=== PATIENT | female | born 1960 | race Two or more races ===

== ENCOUNTER 2020-05-21 10:54 | Inpatient (IN) | payer MEDICAID, OTHER ==
[~2020-05-21] VITALS: Ht 162.6 cm; Wt 67.1 kg
--- NOTE | 2020-05-21 11:11 | NUR ---
MD@bedside, medical screening exam in progress
[2020-05-21] MEDS ORDERED: CLON0.1T GT (11:25)
[2020-05-21] MEDS ORDERED: PROHEAL GT (11:25)
[2020-05-21] MEDS ORDERED: FURO-152 GT (11:25)
[2020-05-21] MEDS ORDERED: BISA10SU61 RC (11:25)
[2020-05-21] MEDS ORDERED: FERR325T23 GT (11:25)
[2020-05-21] MEDS ORDERED: OMEP20CA15 GT (11:25)
[2020-05-21] MEDS ORDERED: DOCU100C36 PO (11:25)
[2020-05-21] MEDS ORDERED: ACET-2154 GT ×2 (11:25→11:47)
[2020-05-21] MEDS ORDERED: QUET25TA GT (11:25)
[2020-05-21] MEDS ORDERED: METO50TA16 PO (11:25)
[2020-05-21 11:39] LABS: *OCCULT BLOOD STOOL NEGATIVE (NEGATIVE)
[2020-05-21 11:44] LABS: BASOPHILS # (AUTO) 0.1 K/uL (0.0-8.0); BASOPHILS % (AUTO) 0.5 % (0.0-2.0); EOSINOPHILS # (AUTO) 0.3 K/uL (0.0-0.7); EOSINOPHILS % (AUTO) 2.6 % (0.0-7.0); HEMATOCRIT 29.1 % (31.2-41.9); HEMOGLOBIN 8.9 g/dL (10.9-14.3); LYMPHOCYTES # (AUTO) 1.6 K/uL (20.0-40.0); LYMPHOCYTES % (AUTO) 13.1 % (20.5-51.5); MEAN CORPUSCULAR HEMOGLOBIN 27.3 uug (24.7-32.8); MEAN CORPUSCULAR HGB CONC 31 g/dL (32.3-35.6); MEAN CORPUSCULAR VOLUME 89.6 fL (75.5-95.3); MONOCYTES # (AUTO) 0.6 K/uL (2.0-10.0); NEUTROPHILS # (AUTO) 9.4 K/uL (1.8-8.9); NEUTROPHILS % (AUTO) 78.8 % (38.5-71.5); PLATELET COUNT (AUTO) 404 K/uL (179-408); RED BLOOD CELL COUNT(AUTO) 3.25 MIL/uL (3.63-4.92); WHITE BLOOD COUNT (AUTO) 11.9 K/uL (3.8-11.8)
[2020-05-21] MEDS ORDERED: LORA-259 PO (11:47)
[2020-05-21] MEDS ORDERED: SENN-261 GT (11:47)
[2020-05-21] MEDS ORDERED: HYDR-4384 PO (11:47)
[2020-05-21] MEDS ORDERED: INSU100V7 SQ (11:47)
[2020-05-21] MEDS ORDERED: HUMALOG SQ (11:47)
[2020-05-21] MEDS ORDERED: APIX5TAB PO (11:47)
[2020-05-21] MEDS ORDERED: LACT10SO GT (11:47)
[2020-05-21] MEDS ORDERED: EPOE1000 SQ (11:47)
[2020-05-21] MEDS ORDERED: ASCO500C6 GT (11:47)
[2020-05-21] MEDS ORDERED: SIME80TA15 PO (11:47)
[2020-05-21] MEDS ORDERED: POLY17PO4 GT (11:47)
[2020-05-21] MEDS ORDERED: ONDA-104 GT (11:47)
[2020-05-21] MEDS ORDERED: GABA-532 GT (11:47)
[2020-05-21] MEDS ORDERED: MULT-213 GT (11:47)
[2020-05-21] MEDS ORDERED: LEVO250T59 GT (11:47)
[2020-05-21] MEDS ORDERED: CHOL10002 GT (11:47)
[2020-05-21] MEDS ORDERED: HYDR-894 PO (11:47)
[2020-05-21] MEDS ORDERED: ACET-2154 PO (11:47)
[2020-05-21 11:59] LABS: CREATININE 1.8 mg/dL (0.6-1.3); POTASSIUM 3.7 mmol/L (3.5-5.1)
[2020-05-21 12:05] LABS: BILIRUBIN,DIRECT 0.1 mg/dL (0.0-0.2); BILIRUBIN,TOTAL 0.2 mg/dL (0.2-1.0); TOTAL PROTEIN, SERUM 9.7 g/dL (6.4-8.2)
[2020-05-21 12:12] LABS: MAGNESIUM 2.5 mg/dL (1.8-2.4); PHOSPHOROUS 4.8 mg/dL (2.5-4.9)
[2020-05-21 12:13] LABS: THYROID STIMULATING HORMONE 0.303 mIU/mL (0.358-3.740)
--- NOTE | 2020-05-21 12:21 | NUR ---
Oral care provided. +PRN oral suctioning, thin saliva noted.
[2020-05-21] MEDS ORDERED: IV 1/2NS 1000 ML 1,000 ML IV ONE (12:30)
[2020-05-21 12:46] LABS: *BILIRUBIN,URIN NEGATIVE (NEGATIVE); *BLOOD, URINE 3+ (NEGATIVE); *CLARITY,URINE CLOUDY (CLEAR); *COLOR,URINE YELLOW (YELLOW); *KETONES,URINE NEGATIVE (NEGATIVE); LEUKOCYTE ESTERASE ,URINE 3+ (NEGATIVE); NITRITE, URINE NEGATIVE (NEGATIVE); UGLUCOSE NEGATIVE (NEGATIVE)
[2020-05-21] MEDS ORDERED: CEFEPIME HCL 2 G in IV DEXTROSE 5% 100 ML IV ONE (13:15)
--- NOTE | 2020-05-21 13:26 | NUR ---
Patient is resting comfortably on gurney with eyes closed. Heels off bed. PATIENT IS PAIN FREE AT THIS TIME.
[2020-05-21] MEDS ORDERED: SIMETHICONE 80 MG TAB.CHEW GT PRN (14:15)
[2020-05-21] MEDS ORDERED: SENNOSIDES 1 TABLET GT PRN (14:15)
[2020-05-21] MEDS ORDERED: BISACODYL 10 MG SUPP.RECT RC PRN (14:15)
[2020-05-21] MEDS ORDERED: hydrALAZINE HCL 25 MG TABLET GT PRN (14:15)
[2020-05-21] MEDS ORDERED: ONDANSETRON 4 MG/2 ML VIAL IV PRN (14:30)
[2020-05-21] MEDS ORDERED: DEXTROSE 50% 50 ML DISP.SYRIN IV PRN (14:30)
[2020-05-21] MEDS ORDERED: CEFTRIAXONE 1 G in IV DEXTROSE 5% 50 ML IV SCH (14:30)
[2020-05-21] MEDS ORDERED: CEFTRIAXONE /D5W 50ML IVPB **ER PYXIS IV ONE (14:52)
--- NOTE | 2020-05-21 16:25 | NUR ---
No acute change in condition seen, pending [facility] nurse still. Back rubs given.
[2020-05-21 17:14] LABS: BACTERIA,URINE MODERATE /HPF (NONE SEEN); SQUAMOUS EPITHELIAL CELL,UR FEW /HPF (NONE SEEN); WBC,URINE 20-50 /HPF (0-3); YEAST,URINE BUDDING YEAST /HPF (NONE SEEN)
--- NOTE | 2020-05-21 18:58 | NUR ---
Patient is still for [facility] trasnfer, pending accepting nurse@this time, no change in condition seen, Skin care & prn trach suctioning done.
--- NOTE | 2020-05-21 19:29 | NUR ---
[facility] nurse De accepted patient. Patient is ready to go to [facility] after change of shift, endorsed to ER admission discharge rn Roger accordingly.
--- NOTE | 2020-05-21 20:30 | NUR ---
PT TRANSPORTED VIA [facility] TO RM 308 WITH RT BAGGING PT.
--- NOTE | 2020-05-21 20:31 | NUR ---
Patient received from ER Nurse via [facility]. Safety measures in place. RT at bedside as well. Will monitor and assess.
--- NOTE | 2020-05-21 21:25 | NUR ---
Patient rated 10/10 pain in her feet, grimacing, and unable to lay still. Was asked if she wants pain medication, mouthed the words "yes". PRN Morphine was given Will monitor and assess.
[2020-05-21] MEDS: MORPHINE SULFATE 2 MG/1 ML DISP.SYRIN IV PRN (21:26)
[2020-05-21] MEDS: FLUCONAZOLE 200 MG/NS 100ML IV 100 MG in PREMIXED 1 EACH IV SCH (21:35)
[2020-05-21] MEDS: POTASSIUM CHLORIDE 20 MEQ in IV 1/2NS 1000 ML 1,000 ML IV PRN (21:36)
[2020-05-21] MEDS: DOCUSATE SODIUM 100 MG/10 ML LIQUID UDC GT SCH (21:41)
[2020-05-21] MEDS: APIXABAN 2.5 MG TABLET GT SCH (21:43)
[2020-05-21] MEDS: CLONIDINE HCL 0.1 MG TABLET GT SCH (21:44)
[2020-05-21] MEDS: GABAPENTIN 100 MG CAPSULE GT SCH (21:45)
[2020-05-21] MEDS: QUETIAPINE FUMARATE 25 MG TABLET GT SCH (21:45)
[2020-05-21] MEDS: METOPROLOL TARTRATE 50 MG TABLET GT SCH (21:45)
[2020-05-21] MEDS: INSULIN GLARGINE,HUM 300 UNITS/3 ML CARTRIDGE SQ SCH (22:10)
[2020-05-21] MEDS: BLOOD SUGAR DIAGNOSTIC 1 EACH STRIP VI SCH (22:10)
--- NOTE | 2020-05-21 22:10 | NUR ---
Due to no diet being ordered and patients Blood Sugar results (125) Lantus was held to prevent any Hypoglycemia. Will continue to monitor and assess.
[2020-05-21 22:30] VITALS: BP 126/81
[2020-05-21] MEDS ORDERED: NEOMY/BACITRA/POLYMYXIN B OINT UD PACKET TP ONE (22:33)
[2020-05-21 23:19] VITALS: BP 126/81
--- NOTE | 2020-05-22 | NUR ---
Contacted Respiratory Therapist Jon to connect continuous pulse oximeter to patient. He was able to locate one and connect patient. Patient saturation at 100%, HR 83, BP WNL. Heels kept off bed, patient repositioned Q2H, HOB elevated. Will monitor and assess.
[2020-05-22 00:08] VITALS: BP 145/98
[2020-05-22] MEDS: BLOOD SUGAR DIAGNOSTIC 1 EACH STRIP VI SCH ×5 (00:24→23:35)
--- NOTE | 2020-05-22 03:41 | NUR ---
PT ON CONT LOPEZ VENT, WITH SHILEY # [address] AND SECURED, AND AWAKE, UNDERSTANDS VERBAL COMMANDS ,PT GETTING TIRED LATER IN EVENING, ON CPAP MODE ON VENT PT SLOWS DOWN AT NOC AT TIMES, THEN WAKES UP, WITH CONT PULSE OXY AT BEDSIDE, 100% SAT, SUCTIONED VERY LITTLE , WITH GOOD COUGH EFFORT.D LEROY MALE INFERTILITY SPECIALIST CPAP 12CM 40%, PEEP 5.D LEROY MALE INFERTILITY SPECIALIST Addendum: 05/22/20 at 0346 by BAKARI HARPER RT Amended: Links added.
[2020-05-22 04:00] VITALS: BP 143/82
[2020-05-22] MEDS: ACETAMINOPHEN 325 MG TABLET GT PRN (06:38)
--- NOTE | 2020-05-22 06:53 | NUR ---
Patient handed off to AM nurse. Stable condition. All vitals WNLs. Safety measures in place. Will endorse to AM nurse.
[2020-05-22 08:22] LABS: BASOPHILS % (AUTO) 0.5 % (0.0-2.0); EOSINOPHILS # (AUTO) 0.4 K/uL (0.0-0.7); EOSINOPHILS % (AUTO) 3.9 % (0.0-7.0); HEMATOCRIT 28.1 % (31.2-41.9); HEMOGLOBIN 8.8 g/dL (10.9-14.3); LYMPHOCYTES % (AUTO) 10.3 % (20.5-51.5); MEAN CORPUSCULAR HGB CONC 31 g/dL (32.3-35.6); MEAN CORPUSCULAR VOLUME 89.8 fL (75.5-95.3); MONOCYTES # (AUTO) 0.5 K/uL (2.0-10.0); NEUTROPHILS % (AUTO) 80.3 % (38.5-71.5); PLATELET COUNT (AUTO) 376 K/uL (179-408); RED BLOOD CELL COUNT(AUTO) 3.13 MIL/uL (3.63-4.92)
[2020-05-22 08:29] LABS: BILIRUBIN,TOTAL 0.3 mg/dL (0.2-1.0); CREATININE 1.8 mg/dL (0.6-1.3); MAGNESIUM 2.3 mg/dL (1.8-2.4); PHOSPHOROUS 5.4 mg/dL (2.5-4.9); POTASSIUM 3.6 mmol/L (3.5-5.1); TOTAL PROTEIN, SERUM 8.9 g/dL (6.4-8.2)
[2020-05-22 08:38] LABS: THYROID STIMULATING HORMONE 0.303 mIU/mL (0.358-3.740)
[2020-05-22] MEDS: CHOLECALCIFEROL 1,000 UNIT TABLET GT SCH (09:19)
[2020-05-22] MEDS: MIRALAX 17 GM POWD.PACK GT SCH (09:19)
[2020-05-22] MEDS: PANTOPRAZOLE ORAL SUSPENSION 40 MG SUSPDR.PKT GT SCH (09:19)
[2020-05-22] MEDS: METOPROLOL TARTRATE 50 MG TABLET GT SCH ×2 (09:20→16:39)
[2020-05-22] MEDS: ASCORBIC ACID 500 MG TABLET GT SCH (09:20)
[2020-05-22] MEDS: MULTIVITAMINS,THERAPEUTIC TABLET GT SCH (09:20)
[2020-05-22] MEDS: QUETIAPINE FUMARATE 25 MG TABLET GT SCH ×2 (09:21→16:41)
[2020-05-22] MEDS: APIXABAN 2.5 MG TABLET GT SCH ×2 (09:24→20:47)
[2020-05-22] MEDS: DOCUSATE SODIUM 100 MG/10 ML LIQUID UDC GT SCH ×2 (09:27→16:36)
[2020-05-22] MEDS: CLONIDINE HCL 0.1 MG TABLET GT SCH ×2 (09:35→16:34)
[2020-05-22] MEDS: MORPHINE SULFATE 2 MG/1 ML DISP.SYRIN IV PRN ×2 (09:38→19:54)
--- NOTE | 2020-05-22 11:23 | NUR ---
RN Will will clarify with the physician for the order. She will call the tech.
--- NOTE | 2020-05-22 11:30 | NUR ---
PATIENT HAS GANGRENE TOES, CLARFIY THE ORDER FOR DOPPLER VENEOUS, MD WANTS BOTH DONE. ARTERIAL AND VENEOUS STUDY.
[2020-05-22 12:00] VITALS: BP 122/79
--- NOTE | 2020-05-22 13:38 | NUR ---
DAUGHTER REQUEST TO CHECK IF PATIENT HAS BLOOD ON STOOL, MD NOTIFY WITH ORDER.
--- NOTE | 2020-05-22 13:45 | NUR ---
CALLED [facility] AND VERIFY WHAT FEEDING PATIENT HAS, ITS DIABETA SOURCE AT 80CC. NOTIFY DIETARY WITH SUGGESTIONS OF GLUCERNA SINCE WE DONT CARRY DIABETA SOURCE. MD NOTIFY WITH ORDER OF GLUCERNA 1.2 AT 80CC/HR EQUIVALENT
[2020-05-22] MEDS: PROTEIN SUPPLEMENT (PROSTAT) 30 ML LIQUID GT SCH ×2 (14:08→16:39)
[2020-05-22] MEDS: CEFTRIAXONE 1 G in IV DEXTROSE 5% 50 ML IV SCH (14:17)
[2020-05-22] MEDS: POTASSIUM CHLORIDE 20 MEQ in IV 1/2NS 1000 ML 1,000 ML IV PRN (14:18)
[2020-05-22 16:12] VITALS: BP 109/70
--- NOTE | 2020-05-22 17:42 | NUR ---
POSITIVE FOR MRSA NARES, DR FLOWERS AWARE.
[2020-05-22] MEDS: FLUCONAZOLE 200 MG/NS 100ML IV 100 MG in PREMIXED 1 EACH IV SCH (19:53)
[2020-05-22 20:27] VITALS: BP 86/56
[2020-05-22] MEDS: INSULIN GLARGINE,HUM 300 UNITS/3 ML CARTRIDGE SQ SCH (20:47)
[2020-05-22] MEDS: GABAPENTIN 100 MG CAPSULE GT SCH (20:47)
[2020-05-22] MEDS: GLUCERNA 1.2 1000ML LIQUID GT PRN (21:42)
[2020-05-23 00:45] VITALS: BP 108/65
[2020-05-23] MEDS: MORPHINE SULFATE 2 MG/1 ML DISP.SYRIN IV PRN ×4 (00:50→21:11)
[2020-05-23 05:33] VITALS: BP 119/71
[2020-05-23] MEDS: INSULIN REGULAR, HUMAN 300 UNIT/3 ML VIAL SQ PRN ×3 (05:44→23:36)
[2020-05-23] MEDS: BLOOD SUGAR DIAGNOSTIC 1 EACH STRIP VI SCH ×4 (05:44→23:37)
--- NOTE | 2020-05-23 06:09 | NUR ---
END OF SHIFT REPORT Patient rested well in between care; GTF started and tolerated well; off at 0600H and on in 4 hours; c/o pain multiple times and addressed accordingly; needs attended; repositioned q2h; incontinence care done; safety maintained.
--- NOTE | 2020-05-23 08:00 | NUR ---
Pt alert and oriented. Pt responds appropriately with head gestures of yes or no. Pt non verbal but able to communicate her needs. pt on CPAP and settings are as ordered. Pt on continous pulse o2 sat. O2 sat 98% on fio2 of 40%, PPEP of 5, Pressure support @12. Pt pointed out that she wanted to be suctioned. Suctioned frothy white saliva with moderate 8cc secretions. Pt denies any c/o pain. PT has very poor circulation to UE's and LE's as evident by necrotic tissues on fingers and toes. Skin management implemented. Pt on 1st step KCI bed. heels floated, turn q2hrs implemented, and repositioned for comfort. Gtube off as ordered. PT's meds given g tube audible in stomach no residual noted. IVF running as ordered. Call light is within reach. Addendum: 05/23/20 at 1610 by HOMER DUSTIN MESSINA KCI bed still not delivered but has been ordered.
[2020-05-23] MEDS: PANTOPRAZOLE ORAL SUSPENSION 40 MG SUSPDR.PKT GT SCH (09:09)
[2020-05-23] MEDS: DOCUSATE SODIUM 100 MG/10 ML LIQUID UDC GT SCH ×3 (09:09→17:09)
[2020-05-23] MEDS: CHOLECALCIFEROL 1,000 UNIT TABLET GT SCH (09:09)
[2020-05-23] MEDS: MULTIVITAMINS,THERAPEUTIC TABLET GT SCH (09:09)
[2020-05-23] MEDS: QUETIAPINE FUMARATE 25 MG TABLET GT SCH ×2 (09:09→17:09)
[2020-05-23] MEDS: ASCORBIC ACID 500 MG TABLET GT SCH (09:09)
[2020-05-23] MEDS: METOPROLOL TARTRATE 50 MG TABLET GT SCH ×2 (09:11→17:09)
[2020-05-23] MEDS: APIXABAN 2.5 MG TABLET GT SCH ×2 (09:11→20:03)
[2020-05-23] MEDS: CLONIDINE HCL 0.1 MG TABLET GT SCH ×2 (09:12→17:09)
[2020-05-23] MEDS: MIRALAX 17 GM POWD.PACK GT SCH (09:12)
[2020-05-23] MEDS: PROTEIN SUPPLEMENT (PROSTAT) 30 ML LIQUID GT SCH ×2 (09:13→17:10)
[2020-05-23 10:07] LABS: *OCCULT BLOOD STOOL NEGATIVE (NEGATIVE)
[2020-05-23] MEDS: MUPIROCIN 2% OINT 22 GM TUBE NS SCH ×2 (11:00→20:04)
[2020-05-23] MEDS: POTASSIUM CHLORIDE 20 MEQ in IV 1/2NS 1000 ML 1,000 ML IV PRN ×2 (11:33→23:29)
[2020-05-23 11:46] VITALS: BP 113/71
--- NOTE | 2020-05-23 12:00 | NUR ---
Pt was seen by RT trache care done. Pt was suctioned as well. Pt denies any c/o pain. Gtube started @1000am as ordered to complete 20hrs of feeding. Will endorse to turn off GTube feeding at @6am tomorrow.
[2020-05-23] MEDS: CEFTRIAXONE 1 G in IV DEXTROSE 5% 50 ML IV SCH (14:24)
--- NOTE | 2020-05-23 15:49 | NUR ---
Pt was seen by DR king. No new order received. PT suctioned per pt's request.
[2020-05-23 15:58] VITALS: BP_SYST 117; BP_SYST 144; BP_DIAS 75; BP_DIAS 95
[2020-05-23] MEDS: GLUCERNA 1.2 1000ML LIQUID GT PRN (15:59)
--- NOTE | 2020-05-23 18:53 | NUR ---
Pt suctioned again. PT denies any c/o pain. Call light is within reach.
[2020-05-23] MEDS: GABAPENTIN 100 MG CAPSULE GT SCH (20:03)
[2020-05-23 20:06] VITALS: BP 110/70
[2020-05-23] MEDS: INSULIN GLARGINE,HUM 300 UNITS/3 ML CARTRIDGE SQ SCH (20:07)
[2020-05-23] MEDS: HYDROCODONE/APAP 5-325MG TABLET GT PRN (20:09)
[2020-05-23 21:14] LABS: *BILIRUBIN,URIN 1+ (NEGATIVE); *BLOOD, URINE 3+ (NEGATIVE); *CLARITY,URINE CLOUDY (CLEAR); *COLOR,URINE YELLOW (YELLOW); *KETONES,URINE NEGATIVE (NEGATIVE); *UROBILINOGEN,URINE 0.2 E.U./dl (NORMAL); LEUKOCYTE ESTERASE ,URINE 3+ (NEGATIVE); NITRITE, URINE NEGATIVE (NEGATIVE); UGLUCOSE NEGATIVE (NEGATIVE)
[2020-05-23 21:24] LABS: *CREATININE,URINE 38.3 mg/dL (30-125); *URINE TOTAL PROTEIN RANDOM 139.4 mg/dL (<150/24HR)
[2020-05-23 23:05] LABS: BACTERIA,URINE MANY /HPF (NONE SEEN); SQUAMOUS EPITHELIAL CELL,UR MODERATE /HPF (NONE SEEN); YEAST,URINE MANY /HPF (NONE SEEN)
[2020-05-23 23:06] LABS: MUCUS,URINE FEW /LPF (0-FEW); URINE AMORPHOUS PHOSPHATES MANY /HPF
[2020-05-24 00:18] VITALS: BP 113/77
[2020-05-24] MEDS: MORPHINE SULFATE 2 MG/1 ML DISP.SYRIN IV PRN ×3 (02:34→19:46)
[2020-05-24 04:47] VITALS: BP 117/75
[2020-05-24] MEDS: HYDROCODONE/APAP 5-325MG TABLET GT PRN ×3 (04:50→23:17)
[2020-05-24] MEDS: INSULIN REGULAR, HUMAN 300 UNIT/3 ML VIAL SQ PRN ×4 (05:15→23:21)
[2020-05-24] MEDS: BLOOD SUGAR DIAGNOSTIC 1 EACH STRIP VI SCH ×4 (05:51→23:20)
--- NOTE | 2020-05-24 06:33 | NUR ---
Pt rested well in between care; no acute distress; suctioned secretions orally and via trache; trache care done also by RT; incontinence care done; i/o cath done and specimen sent to lab; urine is very cloudy and pungent; dressing done to palomo heels; and sacrum;
[2020-05-24 07:23] LABS: BASOPHILS # (AUTO) 0.1 K/uL (0.0-8.0); BASOPHILS % (AUTO) 0.9 % (0.0-2.0); EOSINOPHILS # (AUTO) 0.3 K/uL (0.0-0.7); EOSINOPHILS % (AUTO) 3.1 % (0.0-7.0); HEMATOCRIT 25.4 % (31.2-41.9); HEMOGLOBIN 7.9 g/dL (10.9-14.3); LYMPHOCYTES # (AUTO) 1.2 K/uL (20.0-40.0); LYMPHOCYTES % (AUTO) 12.6 % (20.5-51.5); MEAN CORPUSCULAR HEMOGLOBIN 28.3 uug (24.7-32.8); MEAN CORPUSCULAR HGB CONC 31 g/dL (32.3-35.6); MEAN CORPUSCULAR VOLUME 91.2 fL (75.5-95.3); MONOCYTES # (AUTO) 0.6 K/uL (2.0-10.0); MONOCYTES % (AUTO) 5.8 % (0.0-11.0); NEUTROPHILS # (AUTO) 7.7 K/uL (1.8-8.9); NEUTROPHILS % (AUTO) 77.6 % (38.5-71.5); PLATELET COUNT (AUTO) 334 K/uL (179-408); RED BLOOD CELL COUNT(AUTO) 2.79 MIL/uL (3.63-4.92); WHITE BLOOD COUNT (AUTO) 9.9 K/uL (3.8-11.8)
[2020-05-24 07:26] LABS: BILIRUBIN,TOTAL 0.2 mg/dL (0.2-1.0); CREATININE 1.8 mg/dL (0.6-1.3); MAGNESIUM 2.2 mg/dL (1.8-2.4); TOTAL PROTEIN, SERUM 8.2 g/dL (6.4-8.2)
[2020-05-24 07:30] VITALS: BP 101/60
[2020-05-24] MEDS: CLONIDINE HCL 0.1 MG TABLET GT SCH ×2 (09:00→17:42)
[2020-05-24] MEDS: METOPROLOL TARTRATE 50 MG TABLET GT SCH ×2 (09:00→17:43)
[2020-05-24] MEDS: CHOLECALCIFEROL 1,000 UNIT TABLET GT SCH (09:10)
[2020-05-24] MEDS: MIRALAX 17 GM POWD.PACK GT SCH (09:10)
[2020-05-24] MEDS: DOCUSATE SODIUM 100 MG/10 ML LIQUID UDC GT SCH ×2 (09:11→17:42)
[2020-05-24] MEDS: QUETIAPINE FUMARATE 25 MG TABLET GT SCH ×2 (09:11→17:40)
[2020-05-24] MEDS: MULTIVITAMINS,THERAPEUTIC TABLET GT SCH (09:12)
[2020-05-24] MEDS: PANTOPRAZOLE ORAL SUSPENSION 40 MG SUSPDR.PKT GT SCH (09:12)
[2020-05-24] MEDS: PROTEIN SUPPLEMENT (PROSTAT) 30 ML LIQUID GT SCH ×2 (09:12→17:41)
[2020-05-24] MEDS: ASCORBIC ACID 500 MG TABLET GT SCH (09:12)
[2020-05-24] MEDS: APIXABAN 2.5 MG TABLET GT SCH ×2 (09:14→20:02)
[2020-05-24] MEDS: MUPIROCIN 2% OINT 22 GM TUBE NS SCH ×2 (09:15→20:06)
[2020-05-24 11:38] VITALS: BP 110/73
[2020-05-24] MEDS: GLUCERNA 1.2 1000ML LIQUID GT PRN (11:39)
--- NOTE | 2020-05-24 11:43 | NUR ---
WOUND CARE CONSULT: PT PRESENTS WITH STAGE 3 ULCER TO SACRUM, BILATERAL FINGERS WITH DRY BLACK NECROTIC TISSUE WELL DRY BLACK NECROTIC TISSUE TO HEELS AND TOES, ALL PRESENT ON ADMISSION. RECOMMEND SURGICAL AND DPM CONSULTS. DR HAMMOND AND DR WINSLOW NOTIFIED OF CONSULT REQUESTS. RECOMMENDATIONS MADE FOR SKIN PROTECTION. DISCUSSED WITH NURSING STAFF. FIRST STEP LOW AIRLOSS MATTRESS IS ON ORDER. MD IN AGREEMENT WITH PLAN OF CARE.
--- NOTE | 2020-05-24 14:35 | NUR ---
PT seen by farm implement mechanic. Requesting to see vascular surgeon. Will notify Dr. Conrad per request.
--- NOTE | 2020-05-24 15:04 | NUR ---
Per yury Garcia for vascular surgeon consult. Dr. Manuel Philip recommended.
--- NOTE | 2020-05-24 15:21 | NUR ---
Courtesy call made to DR LAU vascular surgeon per DR king request. Spoke with Mariia medical secretary teacher of DR LAU [phone] message left for consult request for BRIA gangrene feet. Call light is within reach.
[2020-05-24] MEDS: CEFTRIAXONE 1 G in IV DEXTROSE 5% 50 ML IV SCH (15:32)
[2020-05-24 15:47] VITALS: BP 111/72
[2020-05-24] MEDS: CADEXOMER IODINE 40 GM TUBE TOP SCH ×2 (17:30→22:00)
[2020-05-24] MEDS: THERAHONEY GEL 1.5 OZ TUBE TOP SCH ×3 (17:30→22:00)
[2020-05-24] MEDS: AMMONIUM LACTATE 12% LOTION 225 GM BOTTLE TP SCH (18:02)
--- NOTE | 2020-05-24 18:05 | NUR ---
PT noted in severe pain. administered norco prn per md's order. PT is in bed, awake with safety measures provided. Oral care provided, HOB elevated at 35 degrees, bed low and locked. Call light within reach. Will continue to monitor.
--- NOTE | 2020-05-24 20:00 | NUR ---
pt c/o pain, morphine given, then air mattress applied to bed; repositioned pt and incontinence care done.
[2020-05-24] MEDS: GABAPENTIN 100 MG CAPSULE GT SCH (20:01)
[2020-05-24] MEDS: INSULIN GLARGINE,HUM 300 UNITS/3 ML CARTRIDGE SQ SCH (20:03)
[2020-05-24] MEDS: Z GUARD REMEDY PASTE 57 GM TUBE TOP SCH (20:06)
[2020-05-24 20:09] VITALS: BP_SYST 110; BP_SYST 98; BP_DIAS 60; BP_DIAS 70
[2020-05-25] MEDS: POTASSIUM CHLORIDE 20 MEQ in IV 1/2NS 1000 ML 1,000 ML IV PRN ×2 (00:03→20:11)
[2020-05-25 00:06] VITALS: BP 127/74
[2020-05-25] MEDS: MORPHINE SULFATE 2 MG/1 ML DISP.SYRIN IV PRN ×4 (01:52→22:29)
[2020-05-25] MEDS: GLUCERNA 1.2 1000ML LIQUID GT PRN (02:59)
[2020-05-25 04:09] VITALS: BP 114/70
[2020-05-25] MEDS: INSULIN REGULAR, HUMAN 300 UNIT/3 ML VIAL SQ PRN ×2 (05:46→12:12)
[2020-05-25] MEDS: BLOOD SUGAR DIAGNOSTIC 1 EACH STRIP VI SCH ×3 (06:02→17:09)
--- NOTE | 2020-05-25 06:55 | NUR ---
Pt rested well in between care; no acute distress; suctioned via trache and orally; seen by DR Valladares last night; sputum sent to lab for culture; incontinence care done; wound care done; needs attended; pain management with morphine; continue to monitor; continue plan of care.
[2020-05-25 07:30] VITALS: BP 122/72
--- NOTE | 2020-05-25 08:00 | NUR ---
Pt alert and oriented x 3. Pt non verbal but able to "mouth" out her words and point to her needs. Pt able to suction self and notify nursing for any c/o pain. Dressing intact and wound care done as ordered. Pt is in no acute distress. Call light is within reach.
[2020-05-25] MEDS: DOCUSATE SODIUM 100 MG/10 ML LIQUID UDC GT SCH ×2 (08:27→17:06)
[2020-05-25] MEDS: QUETIAPINE FUMARATE 25 MG TABLET GT SCH ×2 (08:27→17:05)
[2020-05-25] MEDS: MULTIVITAMINS,THERAPEUTIC TABLET GT SCH (08:27)
[2020-05-25] MEDS: APIXABAN 2.5 MG TABLET GT SCH ×2 (08:28→20:51)
[2020-05-25] MEDS: CHOLECALCIFEROL 1,000 UNIT TABLET GT SCH (08:29)
[2020-05-25] MEDS: ASCORBIC ACID 500 MG TABLET GT SCH (08:29)
[2020-05-25] MEDS: PANTOPRAZOLE ORAL SUSPENSION 40 MG SUSPDR.PKT GT SCH (08:29)
[2020-05-25] MEDS: CLONIDINE HCL 0.1 MG TABLET GT SCH ×2 (08:29→17:06)
[2020-05-25] MEDS: ACIDOPHILUS/BULGARICUS CHEW TAB GT SCH ×2 (08:29→20:18)
[2020-05-25] MEDS: MIRALAX 17 GM POWD.PACK GT SCH (08:30)
[2020-05-25] MEDS: METOPROLOL TARTRATE 50 MG TABLET GT SCH ×2 (08:30→17:06)
[2020-05-25] MEDS: PROTEIN SUPPLEMENT (PROSTAT) 30 ML LIQUID GT SCH ×3 (08:31→17:08)
[2020-05-25] MEDS: MUPIROCIN 2% OINT 22 GM TUBE NS SCH ×2 (08:31→20:52)
[2020-05-25] MEDS: Z GUARD REMEDY PASTE 57 GM TUBE TOP SCH ×2 (08:32→20:58)
[2020-05-25] MEDS: CADEXOMER IODINE 40 GM TUBE TOP SCH (08:32)
[2020-05-25] MEDS: THERAHONEY GEL 1.5 OZ TUBE TOP SCH (08:33)
[2020-05-25] MEDS: AMMONIUM LACTATE 12% LOTION 225 GM BOTTLE TP SCH ×2 (08:33→17:06)
[2020-05-25] MEDS: MUPIROCIN 2% OINT 22 GM TUBE TP SCH (08:35)
[2020-05-25 10:01] LABS: ABG BASE EXCESS 3.2 mmol/L; ABG HCO3 29.5 mmol/L; ABG PCO2 55.1 mmHg (35.0-45.0); ABG PH 7.346 (7.350-7.450); ABG PO2 110.2 mmHg (75.0-100.0); ABG SITE LEFT BRACHIAL; ABG TOTAL HEMOGLOBIN 8.5 G/dL (12.0-16.0); COHb 1.4 % (0.5-1.5); CPAP,BG 12 cmH20; MetHb 0.5 % (0.0-1.5); O2Hb 96.6 % (94.0-97.0); VENT MODE CPAP
[2020-05-25 12:00] VITALS: BP 112/52
[2020-05-25] MEDS: CEFTRIAXONE 1 G in IV DEXTROSE 5% 50 ML IV SCH (14:23)
[2020-05-25 16:00] VITALS: BP 115/76
--- NOTE | 2020-05-25 18:30 | NUR ---
Pt's pain managed with Morphine, frequent suctioning done, trache care done by RT. Abg result in am notified to Dr chapman in am.
--- NOTE | 2020-05-25 19:00 | NUR ---
PATIENT AWAKE, HOB ELEVATED, NO SOB NO CHEST PAIN NOTED. GTF TOLERATE WELL NO RESIDUAL NOTED AT THIS TIME. PATIENT COMPLAIN OF BILATERAL FEET PAIN, WILL MEDICATED ORDERED. CONT TO MONITOR.
[2020-05-25] MEDS: GABAPENTIN 100 MG CAPSULE GT SCH (20:18)
[2020-05-25 20:21] VITALS: BP 104/69
[2020-05-25] MEDS: INSULIN GLARGINE,HUM 300 UNITS/3 ML CARTRIDGE SQ SCH (20:54)
--- NOTE | 2020-05-25 22:24 | NUR ---
PATIENT HAS EPISODE OF ANXIETY, PULLING OUT TUBING, REFUSING CARE, AND SOME AGITATION. PATIENT REFUSED MEDICATION VIA GT. PATIENT MEDICATED FOR PAIN VIA IV, KEPT CLEAN DRY AND COMFORTABLE, BUT SOME HELP. PATIENT GIVEN ATIVAN ORDERED, CONT TO MONITOR.
[2020-05-25] MEDS: LORAZEPAM 1 MG TABLET GT PRN (22:34)
[2020-05-26 00:03] VITALS: BP 108/68
[2020-05-26] MEDS: BLOOD SUGAR DIAGNOSTIC 1 EACH STRIP VI SCH ×5 (00:25→23:22)
[2020-05-26] MEDS: GLUCERNA 1.2 1000ML LIQUID GT PRN ×2 (00:30→17:37)
[2020-05-26] MEDS: INSULIN REGULAR, HUMAN 300 UNIT/3 ML VIAL SQ PRN ×5 (00:30→23:23)
[2020-05-26 04:15] VITALS: BP 108/71
--- NOTE | 2020-05-26 04:40 | NUR ---
PATIENT AWAKE NO SOB NO CHEST PAIN. PATIENT TELE MONITOR SINUS RHYTHM AT THIS TIME. PATIENT WAS KEPT CLEAN DRY AND COMFORTABLE, CONT ON PAIN MANAGEMENT, TX DONE ON FOOT, TOES AND SACRUM. PATIENT ON CPAP TOLERATE WELL, GTF TOLERATE WELL, HAS EPISODE OF ANXIETY AND AGITATION PULLING OUT CPAP TUBING, PULLING IV LINES, CONT TO MONITORR.
--- NOTE | 2020-05-26 07:32 | NUR ---
Pt received on continuous mechanical ventilation via Shiley 8DCT trach. Pt is on ordered settings, tolerating settings well. Suctioned for small amounts of yellowish secretions. Trach care done. Minimal occluding volume used to assess cuff pressure. Vent alarm parameters checked on and audible. No signs or symptoms of respiratory distress noted. Vent plugged into red emergency outlet. Bag/valve/mask and back up trach at bedside. Will continue to monitor patient.
[2020-05-26 08:00] VITALS: BP 130/71
[2020-05-26] MEDS: ACIDOPHILUS/BULGARICUS CHEW TAB GT SCH ×2 (08:36→21:24)
[2020-05-26] MEDS: MULTIVITAMINS,THERAPEUTIC TABLET GT SCH (08:37)
[2020-05-26] MEDS: CLONIDINE HCL 0.1 MG TABLET GT SCH ×2 (08:37→16:38)
[2020-05-26] MEDS: PANTOPRAZOLE ORAL SUSPENSION 40 MG SUSPDR.PKT GT SCH (08:37)
[2020-05-26] MEDS: ASCORBIC ACID 500 MG TABLET GT SCH (08:37)
[2020-05-26] MEDS: METOPROLOL TARTRATE 50 MG TABLET GT SCH ×2 (08:37→16:38)
[2020-05-26] MEDS: QUETIAPINE FUMARATE 25 MG TABLET GT SCH ×2 (08:37→16:38)
[2020-05-26] MEDS: CHOLECALCIFEROL 1,000 UNIT TABLET GT SCH (08:38)
[2020-05-26] MEDS: MIRALAX 17 GM POWD.PACK GT SCH (08:38)
[2020-05-26] MEDS: APIXABAN 2.5 MG TABLET GT SCH ×2 (08:38→21:24)
[2020-05-26] MEDS: DOCUSATE SODIUM 100 MG/10 ML LIQUID UDC GT SCH ×2 (08:38→16:38)
[2020-05-26] MEDS: PROTEIN SUPPLEMENT (PROSTAT) 30 ML LIQUID GT SCH ×3 (08:39→16:42)
[2020-05-26] MEDS: MUPIROCIN 2% OINT 22 GM TUBE NS SCH ×2 (08:40→21:27)
[2020-05-26] MEDS: CADEXOMER IODINE 40 GM TUBE TOP SCH (08:40)
[2020-05-26] MEDS: AMMONIUM LACTATE 12% LOTION 225 GM BOTTLE TP SCH ×2 (08:41→16:39)
[2020-05-26] MEDS: Z GUARD REMEDY PASTE 57 GM TUBE TOP SCH ×2 (08:41→21:28)
[2020-05-26] MEDS: MUPIROCIN 2% OINT 22 GM TUBE TP SCH (08:41)
[2020-05-26] MEDS: THERAHONEY GEL 1.5 OZ TUBE TOP SCH (08:41)
[2020-05-26 09:14] LABS: BASOPHILS % (AUTO) 0.6 % (0.0-2.0); EOSINOPHILS # (AUTO) 0.3 K/uL (0.0-0.7); EOSINOPHILS % (AUTO) 3.6 % (0.0-7.0); HEMATOCRIT 25.3 % (31.2-41.9); HEMOGLOBIN 7.9 g/dL (10.9-14.3); LYMPHOCYTES # (AUTO) 1.3 K/uL (20.0-40.0); LYMPHOCYTES % (AUTO) 17.1 % (20.5-51.5); MEAN CORPUSCULAR HEMOGLOBIN 27.8 uug (24.7-32.8); MEAN CORPUSCULAR HGB CONC 31 g/dL (32.3-35.6); MEAN CORPUSCULAR VOLUME 88.4 fL (75.5-95.3); MONOCYTES # (AUTO) 0.5 K/uL (2.0-10.0); MONOCYTES % (AUTO) 6.5 % (0.0-11.0); NEUTROPHILS # (AUTO) 5.6 K/uL (1.8-8.9); NEUTROPHILS % (AUTO) 72.2 % (38.5-71.5); PLATELET COUNT (AUTO) 361 K/uL (179-408); RED BLOOD CELL COUNT(AUTO) 2.86 MIL/uL (3.63-4.92); WHITE BLOOD COUNT (AUTO) 7.7 K/uL (3.8-11.8)
[2020-05-26 09:20] LABS: CREATININE 1.4 mg/dL (0.6-1.3)
[2020-05-26 11:35] VITALS: BP 109/42
[2020-05-26 12:00] LABS: ABG HCO3 30.8 mmol/L; ABG PCO2 53.1 mmHg (35.0-45.0); ABG PH 7.382 (7.350-7.450); ABG PO2 109.9 mmHg (75.0-100.0); ABG SITE RIGHT BRACHIAL; ABG TOTAL HEMOGLOBIN 8.5 G/dL (12.0-16.0); COHb 1.7 % (0.5-1.5); MetHb 0.3 % (0.0-1.5); O2Hb 96.5 % (94.0-97.0); VENT MODE CPAP
[2020-05-26] MEDS: HYDROCODONE/APAP 5-325MG TABLET GT PRN (12:12)
[2020-05-26] MEDS: CEFTRIAXONE 1 G in IV DEXTROSE 5% 50 ML IV SCH (14:45)
[2020-05-26 14:59] VITALS: BP 114/70
[2020-05-26] MEDS: POTASSIUM CHLORIDE 20 MEQ in IV 1/2NS 1000 ML 1,000 ML IV PRN (15:38)
[2020-05-26] MEDS: ACETAMINOPHEN 325 MG TABLET GT PRN (16:39)
--- NOTE | 2020-05-26 18:09 | NUR ---
EOSS: No significant acute changes during this shift. Pt received all due medications with no ASE. Received IV ABX with no ASE. Remain on trach on mechanical ventilation tolerating well, RT with tx. Skin care rendered, heels offloaded. On SUNDEEP for skin management. Tube feeding tolerating well, no residual. Kept NPO per order. No s/sx of hypo/hyperglycemia. No bleeding noted. Noted pt. with intermittent agitation, pulling out lines, provided re-orientation and frequent visual monitoring. On tele, remain SR with rate of 75-80 bpm. Pt. seen by Dr. Valladares this shift with orders. Incontinence care rendered. All pt. needs attended and met. Safety measures in place. Call light and all frequently used items within pt. reach. Will endorse to oncoming shift accordingly.
[2020-05-26 20:03] VITALS: BP 104/68
[2020-05-26] MEDS: INSULIN GLARGINE,HUM 300 UNITS/3 ML CARTRIDGE SQ SCH (21:25)
[2020-05-26] MEDS: GABAPENTIN 100 MG CAPSULE GT SCH (21:27)
--- NOTE | 2020-05-26 21:30 | NUR ---
PT HAVING DIARRHEA AND SKIN BECOMING RAW; RECTAL TUBE APPLIED FOR SKIN TO HEAL.
[2020-05-26] MEDS: MORPHINE SULFATE 2 MG/1 ML DISP.SYRIN IV PRN (21:55)
[2020-05-26] MEDS: LORAZEPAM 1 MG TABLET GT PRN (21:56)
[2020-05-27] VITALS: BP 114/73
[2020-05-27] MEDS: MORPHINE SULFATE 2 MG/1 ML DISP.SYRIN IV PRN ×2 (03:53→16:40)
[2020-05-27] MEDS: POTASSIUM CHLORIDE 20 MEQ in IV 1/2NS 1000 ML 1,000 ML IV PRN ×2 (04:00→13:35)
[2020-05-27 04:06] VITALS: BP 117/70
--- NOTE | 2020-05-27 06:03 | NUR ---
PT ON CONT LOPEZ VENT WITH SAME CURRENT VENT SETTINGS, PT WITH SHILEY # 8 ; PT ON CPAP MODE PSV 18 , 40%, STABLE DOING WELL, SUCTIONED PRN, PALE YELL TINGE SECRETIONS, CHANGE HME, ALL VENT ALARMS GOOD, PULSE OXY CONT AT BEDSIDE. Maria Elena HARPER BILLING TYPIST Addendum: 05/27/20 at 0605 by BAKARI HARPER RT Amended: Links added.
[2020-05-27] MEDS: BLOOD SUGAR DIAGNOSTIC 1 EACH STRIP VI SCH ×3 (06:26→17:21)
[2020-05-27] MEDS: INSULIN REGULAR, HUMAN 300 UNIT/3 ML VIAL SQ PRN ×2 (06:30→13:30)
--- NOTE | 2020-05-27 06:38 | NUR ---
Pt rested well in between care; no acute distress; suctioned via trache and orally; incontinence care done; wound care done; needs attended; pain management with morphine; continue to monitor; continue plan of care.
[2020-05-27 07:41] LABS: BASOPHILS % (AUTO) 0.6 % (0.0-2.0); EOSINOPHILS # (AUTO) 0.2 K/uL (0.0-0.7); HEMATOCRIT 26.2 % (31.2-41.9); HEMOGLOBIN 8.1 g/dL (10.9-14.3); LYMPHOCYTES # (AUTO) 1.5 K/uL (20.0-40.0); LYMPHOCYTES % (AUTO) 19.7 % (20.5-51.5); MEAN CORPUSCULAR HEMOGLOBIN 27.6 uug (24.7-32.8); MEAN CORPUSCULAR HGB CONC 31 g/dL (32.3-35.6); MONOCYTES # (AUTO) 0.5 K/uL (2.0-10.0); MONOCYTES % (AUTO) 7.2 % (0.0-11.0); NEUTROPHILS # (AUTO) 5.2 K/uL (1.8-8.9); NEUTROPHILS % (AUTO) 69.5 % (38.5-71.5); PLATELET COUNT (AUTO) 354 K/uL (179-408); RED BLOOD CELL COUNT(AUTO) 2.94 MIL/uL (3.63-4.92); WHITE BLOOD COUNT (AUTO) 7.4 K/uL (3.8-11.8)
[2020-05-27 08:06] LABS: CREATININE 1.4 mg/dL (0.6-1.3); PHOSPHOROUS 4.2 mg/dL (2.5-4.9); POTASSIUM 4.3 mmol/L (3.5-5.1)
[2020-05-27] MEDS: MIRALAX 17 GM POWD.PACK GT SCH (09:00)
[2020-05-27] MEDS: DOCUSATE SODIUM 100 MG/10 ML LIQUID UDC GT SCH ×2 (09:00→17:00)
[2020-05-27] MEDS: PANTOPRAZOLE ORAL SUSPENSION 40 MG SUSPDR.PKT GT SCH (09:48)
[2020-05-27] MEDS: METOPROLOL TARTRATE 50 MG TABLET GT SCH ×2 (09:49→17:16)
[2020-05-27] MEDS: ACIDOPHILUS/BULGARICUS CHEW TAB GT SCH ×2 (09:49→21:09)
[2020-05-27] MEDS: MULTIVITAMINS,THERAPEUTIC TABLET GT SCH (09:49)
[2020-05-27] MEDS: CLONIDINE HCL 0.1 MG TABLET GT SCH ×2 (09:49→17:16)
[2020-05-27] MEDS: ASCORBIC ACID 500 MG TABLET GT SCH (09:50)
[2020-05-27] MEDS: QUETIAPINE FUMARATE 25 MG TABLET GT SCH ×2 (09:50→17:16)
[2020-05-27] MEDS: CHOLECALCIFEROL 1,000 UNIT TABLET GT SCH (09:50)
[2020-05-27] MEDS: APIXABAN 2.5 MG TABLET GT SCH ×2 (09:52→21:13)
[2020-05-27 11:40] VITALS: BP 130/83
[2020-05-27] MEDS: PROTEIN SUPPLEMENT (PROSTAT) 30 ML LIQUID GT SCH ×3 (13:00→17:18)
--- NOTE | 2020-05-27 13:20 | NUR ---
Change of patient assignment report given to [place].
[2020-05-27] MEDS: AMMONIUM LACTATE 12% LOTION 225 GM BOTTLE TP SCH ×2 (13:33→17:17)
[2020-05-27] MEDS: THERAHONEY GEL 1.5 OZ TUBE TOP SCH (13:34)
[2020-05-27] MEDS: MUPIROCIN 2% OINT 22 GM TUBE NS SCH ×2 (13:36→21:10)
[2020-05-27] MEDS: CADEXOMER IODINE 40 GM TUBE TOP SCH (13:38)
[2020-05-27] MEDS: Z GUARD REMEDY PASTE 57 GM TUBE TOP SCH ×2 (13:39→21:11)
[2020-05-27] MEDS: MUPIROCIN 2% OINT 22 GM TUBE TP SCH (13:40)
[2020-05-27] MEDS ORDERED: APIX2.5T GT (15:12)
[2020-05-27] MEDS ORDERED: CEFT1VIA15 IV (15:12)
[2020-05-27 15:45] VITALS: BP 141/81
[2020-05-27] MEDS: CEFTRIAXONE 1 G in IV DEXTROSE 5% 50 ML IV SCH (16:40)
--- NOTE | 2020-05-27 19:46 | NUR ---
Received pt awake and in bed. Does not appear to be in any acute distress at this time. On CPAP sating 94%. Getting discharged to [facility] bed 16A at 2000H. Will continue to monitor until discharge
[2020-05-27 20:00] VITALS: BP 105/67
[2020-05-27] MEDS: GABAPENTIN 100 MG CAPSULE GT SCH (21:10)
[2020-05-27] MEDS: INSULIN GLARGINE,HUM 300 UNITS/3 ML CARTRIDGE SQ SCH (21:12)
--- NOTE | 2020-05-27 22:00 | NUR ---
Patient stable on discharge. Denies any pain or difficulty breathing. Pt left via [facility]. Gave report to Xiao Wan.
== END 2020-05-27 22:44 | DRG 720 ==
LOC: ER 10:54 → DOU3 20:02 → TELE-TD3 21:16
PROVIDERS: ADMIT Internal Medicine; ATTEND Student in an Organized Health Care Education/Training Program
PROC: 05HY33Z Insertion of Infusion Device into Upper Vein, Percutaneous Approach (ICD-10-PCS; principal; 2020-05-21)
PROC: 5A1955Z Respiratory Ventilation, Greater than 96 Consecutive Hours (ICD-10-PCS; principal; 2020-05-21)
DX: A41.9 Sepsis, unspecified organism (principal); N39.0 Urinary tract infection, site not specified; N17.0 Acute kidney failure with tubular necrosis; R62.7 Adult failure to thrive; L89.153 Pressure ulcer of sacral region, stage 3; E43 Unspecified severe protein-calorie malnutrition; E11.52 Type 2 diabetes mellitus with diabetic peripheral angiopathy with gangrene; I96 Gangrene, not elsewhere classified; D68.69 Other thrombophilia; G92 Toxic encephalopathy; F32.9 Major depressive disorder, single episode, unspecified; E87.0 Hyperosmolality and hypernatremia; E83.52 Hypercalcemia; E78.5 Hyperlipidemia, unspecified; E11.65 Type 2 diabetes mellitus with hyperglycemia; E88.09 Other disorders of plasma-protein metabolism, not elsewhere classified; I13.10 Hypertensive heart and chronic kidney disease without heart failure, with stage 1 through stage 4 chronic kidney disease, or unspecified chronic kidney disease; J44.9 Chronic obstructive pulmonary disease, unspecified; J96.11 Chronic respiratory failure with hypoxia; K21.9 Gastro-esophageal reflux disease without esophagitis; Z20.828 Contact with and (suspected) exposure to other viral communicable diseases; R13.10 Dysphagia, unspecified; Z22.322 Carrier or suspected carrier of Methicillin resistant Staphylococcus aureus; Z79.01 Long term (current) use of anticoagulants; Z79.4 Long term (current) use of insulin; Z87.01 Personal history of pneumonia (recurrent); Z86.718 Personal history of other venous thrombosis and embolism; Z87.891 Personal history of nicotine dependence; Z93.0 Tracheostomy status; Z93.1 Gastrostomy status; Z87.440 Personal history of urinary (tract) infections; N18.9 Chronic kidney disease, unspecified; M19.90 Unspecified osteoarthritis, unspecified site; Z99.11 Dependence on respirator [ventilator] status; E11.40 Type 2 diabetes mellitus with diabetic neuropathy, unspecified; J96.12 Chronic respiratory failure with hypercapnia; B95.1 Streptococcus, group B, as the cause of diseases classified elsewhere; E11.621 Type 2 diabetes mellitus with foot ulcer; L97.519 Non-pressure chronic ulcer of other part of right foot with unspecified severity; L97.529 Non-pressure chronic ulcer of other part of left foot with unspecified severity; Z68.25 Body mass index [BMI] 25.0-25.9, adult; E11.22 Type 2 diabetes mellitus with diabetic chronic kidney disease; D64.9 Anemia, unspecified
CPT/HCPCS: 36415; 36600; 70030-TC; 71045; 73630; 82378; 83550; 83605; 83690; 83735; 83970; 84100; 84156; 84300; 84443; 85025; 85730; 87040; 87070; 87077; 87086; 93005; 93307; 94002; 94003; A4217; A4663; C1758; G0378; J0692; J0696; J1450; J1815; J2270; J3480; J3490; J7030; J7060

== ENCOUNTER 2020-07-13 22:45 | Inpatient (IN) | payer OTHER ==
[~2020-07-13] VITALS: Ht 162.6 cm; Wt 48.2 kg
[~2020-07-13 22:45] MED LIST: ACET-2154 GT; ACET-2154 PO; APIX2.5T GT; ASCO500C6 GT; BISA10SU61 RC; CEFT1VIA15 IV; CHOL10002 GT; CLON0.1T GT; DOCU100C36 PO; EPOE1000 SQ; FERR325T23 GT; FURO-152 GT; GABA-532 GT; HUMALOG SQ; HYDR-4384 PO; HYDR-894 PO; INSU100V7 SQ; LACT10SO3 GT; LORA-259 PO; METO50TA16 PO; MULT-213 GT; OMEP20CA15 GT; ONDA-104 GT; POLY17PO4 GT; PROHEAL GT; QUET25TA GT; SENN-261 GT; SIME80TA15 PO
--- NOTE | 2020-07-13 22:55 | NUR ---
Patient BIB private ambulance from [facility] for c/o fever. Patient upon arrival non verbal. Has a T Tube trach with 5 Liters of O2. G tube on abdominal area patent. Patient makes eye contact and nodes head for yes/no at times. Patient right 3rd digit necrotic on tip, also has necrotic toes on bilateral foot with right heel necrosis. Wound on ccocyx area.
[2020-07-13] MEDS ORDERED: ACETAMINOPHEN ES 500 MG TABLET PO ONE (23:00)
[2020-07-13] MEDS ORDERED: ZINC220T4 GT (23:18)
[2020-07-13] MEDS ORDERED: INSU100V7 SQ (23:18)
[2020-07-13] MEDS ORDERED: ARGI1POW13 GT (23:18)
[2020-07-13] MEDS ORDERED: DOCU-141 GT (23:18)
[2020-07-13 23:53] LABS: *BILIRUBIN,URIN NEGATIVE (NEGATIVE); *CLARITY,URINE SLIGHTLY CLOUDY (CLEAR); *COLOR,URINE YELLOW (YELLOW); *KETONES,URINE NEGATIVE (NEGATIVE); *UROBILINOGEN,URINE 0.2 E.U./dl (NORMAL); LEUKOCYTE ESTERASE ,URINE 1+ (NEGATIVE); NITRITE, URINE NEGATIVE (NEGATIVE); UGLUCOSE NEGATIVE (NEGATIVE)
[2020-07-13 23:57] LABS: *BLOOD, URINE TRACE (NEGATIVE)
[2020-07-13 23:59] LABS: BACTERIA,URINE MANY /HPF (NONE SEEN); SQUAMOUS EPITHELIAL CELL,UR MODERATE /HPF (NONE SEEN); WBC,URINE 80-100 /HPF (0-3)
[2020-07-14] LABS: URINE AMORPHOUS URATE MANY /HPF
[2020-07-14 00:01] LABS: BASOPHILS # (AUTO) 0.1 K/uL (0.0-8.0); BASOPHILS % (AUTO) 0.5 % (0.0-2.0); EOSINOPHILS # (AUTO) 0.2 K/uL (0.0-0.7); HEMOGLOBIN 8.5 g/dL (10.9-14.3); LYMPHOCYTES % (AUTO) 12.1 % (20.5-51.5); MEAN CORPUSCULAR HEMOGLOBIN 28.3 uug (24.7-32.8); MEAN CORPUSCULAR HGB CONC 31 g/dL (32.3-35.6); MEAN CORPUSCULAR VOLUME 90.4 fL (75.5-95.3); MONOCYTES # (AUTO) 0.9 K/uL (2.0-10.0); MONOCYTES % (AUTO) 5.5 % (0.0-11.0); NEUTROPHILS # (AUTO) 13.5 K/uL (1.8-8.9); NEUTROPHILS % (AUTO) 80.9 % (38.5-71.5); PLATELET COUNT (AUTO) 326 K/uL (179-408); RED BLOOD CELL COUNT(AUTO) 2.99 MIL/uL (3.63-4.92); WHITE BLOOD COUNT (AUTO) 16.7 K/uL (3.8-11.8)
[2020-07-14] MEDS ORDERED: ACETAMINOPHEN ES 500 MG TABLET ONE (00:02)
[2020-07-14 00:23] LABS: BILIRUBIN,TOTAL 0.3 mg/dL (0.2-1.0); CREATININE 3.2 mg/dL (0.6-1.3); POTASSIUM 3.4 mmol/L (3.5-5.1); TOTAL PROTEIN, SERUM 9.6 g/dL (6.4-8.2)
[2020-07-14] MEDS ORDERED: CEFEPIME HCL 1 G in IV DEXTROSE 5% 50 ML IV ONE (00:30)
[2020-07-14] MEDS ORDERED: VANCOMYCIN IV 1,000 MG in IV DEXTROSE 5% 250 ML IV ONE (00:30)
[2020-07-14] MEDS ORDERED: IV NORMAL SALINE 1000 ML BAG IV ONE (00:30)
[2020-07-14] MEDS ORDERED: CEFEPIME HCL 1 G VIAL ONE (00:40)
[2020-07-14] MEDS ORDERED: VANCOMYCIN IV 200 ML ONE (00:40)
--- NOTE | 2020-07-14 02:24 | NUR ---
Paged Epic panel. Waiting for Dr Carrillo to call back.
--- NOTE | 2020-07-14 03:00 | NUR ---
Dr Pagan spoke with Dr Lorena FARIAS sap solutions architect for [employer].
--- NOTE | 2020-07-14 03:25 | NUR ---
Patient pulled out hep lock. Restarted IV on left ac 20g.
[2020-07-14] MEDS ORDERED: ONDANSETRON HCL 4 MG TABLET GT PRN (03:45)
[2020-07-14] MEDS ORDERED: SENNOSIDES 1 TABLET GT PRN (03:45)
[2020-07-14] MEDS ORDERED: DOCUSATE SODIUM 100 MG CAPSULE PO PRN (03:45)
[2020-07-14] MEDS ORDERED: ACETAMINOPHEN 325 MG TABLET PO PRN (03:45)
[2020-07-14] MEDS ORDERED: ONDANSETRON 4 MG/2 ML VIAL IV PRN (03:45)
[2020-07-14] MEDS ORDERED: MAGNESIUM HYDROXIDE 30 ML LIQUID UDC PO PRN (03:45)
[2020-07-14] MEDS ORDERED: ZOLPIDEM 5 MG TABLET PO PRN (03:45)
[2020-07-14] MEDS ORDERED: Z GUARD REMEDY PASTE 57 GM TUBE TOP PRN ×2 (03:45→09:45)
[2020-07-14] MEDS ORDERED: BISACODYL 10 MG SUPP.RECT RC PRN ×2 (03:45→05:53)
[2020-07-14] MEDS ORDERED: HYDROCODONE/APAP 5-325MG TABLET PO PRN ×2 (03:45)
[2020-07-14] MEDS ORDERED: hydrALAZINE HCL 25 MG TABLET PO PRN (03:45)
[2020-07-14] MEDS ORDERED: ACETAMINOPHEN 325 MG TABLET GT SCH (03:45)
[2020-07-14] MEDS ORDERED: ACETAMINOPHEN 325 MG TABLET GT PRN (03:45)
--- NOTE | 2020-07-14 04:28 | NUR ---
Transfered 2nd floor via [facility] with no distress noted.
--- NOTE | 2020-07-14 04:30 | NUR ---
PT ARRIVED VIA GURNEY FROM ER. UNDER THE CARE OF DR. SHORE. DX:UTI. PT ON TRACH. PT OBSERVED MULTIPLE SKIN ISSUES. TOOK PHOTOS AND PUT IT ON CHART. GROUP HOME ASSESSMENT DONE. NO BELONGINGS FOR THE PT. SAFETY AND COMFORT PROVIDED. WILL CONTINUE TO MONITOR.
--- NOTE | 2020-07-14 04:35 | NUR ---
PT SLEPT INTERMITTENTLY. PRESCRIBED MEDICATION GIVEN AND PT TOLERATED IT WELL. PT ON TRACH. CONSTANT SUCTIONING NEEDED. PT IN NO ACUTE RESPIRATORY DISTRESS. IV INTACT. SAFETY AND COMFORT PROVIDED. ALL NEEDS ARE MET. WILL ENDORSE TO INCOMING NURSE FOR CONTINUITY OF CARE.
[2020-07-14] MEDS ORDERED: LACTULOSE 20 G/30 ML LIQUID UDC GT PRN (04:45)
[2020-07-14 04:50] VITALS: BP 111/71
[2020-07-14] MEDS ORDERED: CEFTRIAXONE /D5W 50ML IVPB **ER PYXIS IV ONE (05:44)
[2020-07-14] MEDS ORDERED: ACETAMINOPHEN 650 MG/20.3 ML LIQUID UDC PO PRN (06:00)
[2020-07-14] MEDS: CEFTRIAXONE 1 G in IV DEXTROSE 5% 50 ML IV SCH (06:08)
[2020-07-14] MEDS ORDERED: hydrALAZINE HCL 25 MG TABLET GT PRN (07:08)
[2020-07-14] MEDS ORDERED: MAGNESIUM HYDROXIDE 30 ML LIQUID UDC GT PRN (07:08)
[2020-07-14] MEDS ORDERED: ZOLPIDEM 5 MG TABLET GT PRN (07:08)
[2020-07-14] MEDS ORDERED: DOCUSATE SODIUM 100 MG/10 ML LIQUID UDC GT PRN (07:15)
[2020-07-14 08:00] VITALS: BP 105/67
[2020-07-14] MEDS: FUROSEMIDE 20 MG TABLET GT SCH (08:42)
[2020-07-14] MEDS: CHOLECALCIFEROL 1,000 UNIT TABLET GT SCH (08:42)
[2020-07-14] MEDS: MULTIVIT, IRON, MIN NO. 8, FA TABLET GT SCH (08:42)
[2020-07-14] MEDS: ZINC SULFATE 220 MG CAPSULE GT SCH (08:42)
[2020-07-14] MEDS: QUETIAPINE FUMARATE 25 MG TABLET GT SCH ×2 (08:42→16:07)
[2020-07-14] MEDS: ASCORBIC ACID 500 MG TABLET GT SCH (08:42)
[2020-07-14] MEDS: CLONIDINE HCL 0.1 MG TABLET GT SCH ×2 (08:43→16:06)
[2020-07-14] MEDS: METOPROLOL TARTRATE 50 MG TABLET GT SCH ×2 (08:44→20:37)
[2020-07-14] MEDS: MIRALAX 17 GM POWD.PACK GT SCH (08:44)
[2020-07-14] MEDS: APIXABAN 2.5 MG TABLET GT SCH ×2 (08:46→20:36)
[2020-07-14] MEDS ORDERED: FERROUS SULFATE 325 MG TABEC PO SCH (09:00)
[2020-07-14] MEDS ORDERED: Medication Not On Formulary EA (Arginine/Ascorbate Sod/Vite AC (Arginaid Powder) 1 EACH) GT SCH (09:00)
[2020-07-14] MEDS: FERROUS SULFATE 300 MG/5 ML LIQUID UDC GT SCH ×2 (10:23→18:40)
[2020-07-14 12:00] VITALS: BP 103/59
[2020-07-14] MEDS ORDERED: INSULIN REGULAR, HUMAN 300 UNIT/3 ML VIAL SQ PRN (12:45)
[2020-07-14] MEDS ORDERED: DEXTROSE 50% 50 ML DISP.SYRIN IV PRN ×2 (12:45→19:45)
--- NOTE | 2020-07-14 12:52 | NUR ---
WOUND CARE CONSULT: REVIEWED CHART, NURSING DOCUMENTATION AND PHOTOS WHICH INDICATE MULTIPLE SKIN ISSUES INCLUDING SACRAL STAGE 3 ULCER EXTINDING TO BUTTOCKS, RASH WITH OPEN SKIN TO ABDOMINAL FOLDS, RASH TO PERINEUM, DRY BLACK NECROTIC TISSUE TO FINGER AND TO TOES, ALL PRESENT ON ADMISSION. DR HAMMOND AND DR WINSLOW NOTIFIED OF SURGICAL AND DPM CONSULT REQUESTS. DISCUSSED SKIN PROTECTION AND WOUND CARE RECOMMENDATIONS WITH NURSING STAFF AND Sindy GARCÍA, SURGICAL P.A. [facility] FARIAS IN AGREEMENT WITH PLAN OF CARE.
[2020-07-14 14:42] LABS: *BILIRUBIN,URIN NEGATIVE (NEGATIVE); *BLOOD, URINE 1+ (NEGATIVE); *COLOR,URINE YELLOW (YELLOW); *KETONES,URINE NEGATIVE (NEGATIVE); *UROBILINOGEN,URINE 0.2 E.U./dl (NORMAL); LEUKOCYTE ESTERASE ,URINE 3+ (NEGATIVE); NITRITE, URINE NEGATIVE (NEGATIVE); UGLUCOSE NEGATIVE (NEGATIVE)
[2020-07-14 14:47] LABS: *CREATININE,URINE 79.9 mg/dL (30-125)
[2020-07-14 14:51] LABS: *CLARITY,URINE TURBID (CLEAR)
[2020-07-14 14:52] LABS: BACTERIA,URINE FEW /HPF (NONE SEEN); SQUAMOUS EPITHELIAL CELL,UR MODERATE /HPF (NONE SEEN); WBC,URINE 80-100 /HPF (0-3); YEAST,URINE FEW /HPF (NONE SEEN)
[2020-07-14 16:00] VITALS: BP 100/62
[2020-07-14] MEDS: CLOTRIMAZOLE 1% CREAM 30 GM TUBE TOP SCH (16:06)
[2020-07-14] MEDS: BLOOD SUGAR DIAGNOSTIC 1 EACH STRIP VI SCH ×3 (16:27→23:49)
--- NOTE | 2020-07-14 19:42 | NUR ---
Pt received in bed, AOx1-2. Does not appear to be in distress at this time. Pt is SR on monitor. Bed is locked and in the lowest position. No other issues or concerns at this time.
[2020-07-14 20:03] VITALS: BP 100/61
[2020-07-14] MEDS: GABAPENTIN 300 MG CAPSULE GT SCH (20:36)
[2020-07-14] MEDS: ACETAMINOPHEN 650 MG/20.3 ML LIQUID UDC GT PRN (20:37)
[2020-07-14] MEDS: INSULIN GLARGINE,HUM 300 UNITS/3 ML CARTRIDGE SQ SCH (20:58)
[2020-07-14] MEDS ORDERED: GABAPENTIN 100 MG CAPSULE GT SCH (21:00)
--- NOTE | 2020-07-14 21:00 | NUR ---
Lantus 50 units was held because patient is not getting G-Tube feeding. Glucose was 122.
[2020-07-14] MEDS: IV NS 1000 ML 1,000 ML IV PRN (21:13)
[2020-07-15 00:03] VITALS: BP 84/58
[2020-07-15] MEDS: INSULIN REGULAR, HUMAN 300 UNIT/3 ML VIAL SQ PRN ×4 (00:15→23:41)
[2020-07-15 04:00] VITALS: BP 117/69
[2020-07-15] MEDS: CEFTRIAXONE 1 G in IV DEXTROSE 5% 50 ML IV SCH (05:57)
[2020-07-15] MEDS: BLOOD SUGAR DIAGNOSTIC 1 EACH STRIP VI SCH ×4 (06:20→23:39)
[2020-07-15] MEDS: IV NS 1000 ML 1,000 ML IV PRN ×2 (07:12→23:02)
--- NOTE | 2020-07-15 07:13 | NUR ---
Pt was suctioned throughout shift. Copious amounts of sputum were suctioned from trach. Pt tolerated well and denied SOB.
[2020-07-15 07:38] LABS: BILIRUBIN,TOTAL 0.3 mg/dL (0.2-1.0); CREATININE 2.9 mg/dL (0.6-1.3); PHOSPHOROUS 4.9 mg/dL (2.5-4.9); POTASSIUM 3.3 mmol/L (3.5-5.1); TOTAL PROTEIN, SERUM 9.4 g/dL (6.4-8.2)
--- NOTE | 2020-07-15 07:50 | NUR ---
Received PT in bed, awake AO to name. Seen with safety measures. Denies any pain at this time. No acute distress or SOB noted. Will continue to monitor. Safety measures provided, call light within reach, bed low and lock.
[2020-07-15 07:52] LABS: BASOPHILS % (AUTO) 0.2 % (0.0-2.0); EOSINOPHILS # (AUTO) 0.2 K/uL (0.0-0.7); EOSINOPHILS % (AUTO) 1.8 % (0.0-7.0); HEMATOCRIT 27.7 % (31.2-41.9); HEMOGLOBIN 8.4 g/dL (10.9-14.3); LYMPHOCYTES # (AUTO) 0.9 K/uL (20.0-40.0); LYMPHOCYTES % (AUTO) 6.3 % (20.5-51.5); MEAN CORPUSCULAR HEMOGLOBIN 27.8 uug (24.7-32.8); MEAN CORPUSCULAR HGB CONC 30 g/dL (32.3-35.6); MEAN CORPUSCULAR VOLUME 91.7 fL (75.5-95.3); MONOCYTES # (AUTO) 0.6 K/uL (2.0-10.0); MONOCYTES % (AUTO) 4.4 % (0.0-11.0); NEUTROPHILS # (AUTO) 12.1 K/uL (1.8-8.9); NEUTROPHILS % (AUTO) 87.3 % (38.5-71.5); PLATELET COUNT (AUTO) 257 K/uL (179-408); RED BLOOD CELL COUNT(AUTO) 3.02 MIL/uL (3.63-4.92); WHITE BLOOD COUNT (AUTO) 13.9 K/uL (3.8-11.8)
[2020-07-15] MEDS: ZINC SULFATE 220 MG CAPSULE GT SCH (08:45)
[2020-07-15] MEDS: MIRALAX 17 GM POWD.PACK GT SCH (08:45)
[2020-07-15] MEDS: FUROSEMIDE 20 MG TABLET GT SCH (08:45)
[2020-07-15] MEDS: MULTIVIT, IRON, MIN NO. 8, FA TABLET GT SCH (08:45)
[2020-07-15] MEDS: ASCORBIC ACID 500 MG TABLET GT SCH (08:45)
[2020-07-15] MEDS: CHOLECALCIFEROL 1,000 UNIT TABLET GT SCH (08:46)
[2020-07-15] MEDS: METOPROLOL TARTRATE 50 MG TABLET GT SCH ×2 (08:46→22:10)
[2020-07-15] MEDS: CLONIDINE HCL 0.1 MG TABLET GT SCH ×2 (08:46→17:46)
[2020-07-15] MEDS: QUETIAPINE FUMARATE 25 MG TABLET GT SCH ×2 (08:46→17:46)
[2020-07-15] MEDS: APIXABAN 2.5 MG TABLET GT SCH ×2 (08:48→22:12)
[2020-07-15] MEDS: INSULIN GLARGINE,HUM 300 UNITS/3 ML CARTRIDGE SQ SCH ×2 (08:49→21:00)
[2020-07-15] MEDS: ARGININE/GLUTAMINE/CALCIUM BMB 1 EACH POWD.PACK GT SCH (08:49)
[2020-07-15] MEDS: CADEXOMER IODINE 40 GM TUBE TOP SCH (08:50)
[2020-07-15] MEDS: CLOTRIMAZOLE 1% CREAM 30 GM TUBE TOP SCH ×2 (08:51→17:46)
--- NOTE | 2020-07-15 10:15 | NUR ---
Received critical lab: Sodium 161, BUN 119. Levels are trending.
[2020-07-15] MEDS: FERROUS SULFATE 300 MG/5 ML LIQUID UDC GT SCH ×2 (11:47→18:00)
[2020-07-15 12:00] VITALS: BP 124/69
[2020-07-15 16:00] VITALS: BP 126/65
[2020-07-15] MEDS ORDERED: GLUCERNA 1.2 1000ML LIQUID GT PRN (17:00)
--- NOTE | 2020-07-15 19:50 | NUR ---
Pt received in bed, alert to self. Has bilateral mittens. Pt is anxious and attempting to pull out IV. Was reoriented and distracted. Pt is covid negative and was picked up at 1954 to be transferred to 3rd floor. Pt left in stable condition. No other issues or concerns at this time.
[2020-07-15 20:03] VITALS: BP 108/72
--- NOTE | 2020-07-15 20:15 | NUR ---
Received patient from 2nd floor via rethel.Patient awake. alert x1. HOB elevated with trach in place shiley #6 .Gtube patent and intact with residual < 100 cc.Gt feeding started Glucerna 1.2 at 80cc/hr.Tolerated well.Aspiration observed at all times.Midline on left upper arm .Reinforce dressing.PAtent and intact with Ns at 70 cc/ml.Has bilateral mittens.Safety measure in place .Will continue to monitor.
[2020-07-15] MEDS: GABAPENTIN 300 MG CAPSULE GT SCH (22:09)
[2020-07-15] MEDS: HYDROCODONE/APAP 5-325MG TABLET PO PRN (23:51)
[2020-07-16 00:12] VITALS: BP 104/67
--- NOTE | 2020-07-16 03:06 | NUR ---
Patient refused Troponin draw. Charge nurse aware. Addendum: 07/16/20 at 0329 by RICARDO HENSLEY RN error. wrong patient.
--- NOTE | 2020-07-16 03:29 | NUR ---
Received report from outgoing nurse.
[2020-07-16 04:03] VITALS: BP 95/52
[2020-07-16] MEDS: CEFTRIAXONE 1 G in IV DEXTROSE 5% 50 ML IV SCH (05:30)
[2020-07-16] MEDS: BLOOD SUGAR DIAGNOSTIC 1 EACH STRIP VI SCH ×3 (05:44→17:06)
[2020-07-16] MEDS: INSULIN REGULAR, HUMAN 300 UNIT/3 ML VIAL SQ PRN ×3 (05:48→17:27)
--- NOTE | 2020-07-16 06:25 | NUR ---
Shift End Report: Vs stable. Not in any s/s of distress. Very quiet and cooperative with care. No significant event reported all night. No s/s of hypo/hyperglycemia. Tolerated GTF well. Continue current plan of care.
--- NOTE | 2020-07-16 07:30 | NUR ---
Received report on pt. Resting in bed. Pt on trach, no signs of distress noted. IV on the left FA, double lumen, pt using robbins catheter to void. Bed in low and locked position, safety precautions in place. Will continue to monitor.
[2020-07-16] MEDS: MULTIVIT, IRON, MIN NO. 8, FA TABLET GT SCH (08:20)
[2020-07-16] MEDS: CHOLECALCIFEROL 1,000 UNIT TABLET GT SCH (08:20)
[2020-07-16] MEDS: ASCORBIC ACID 500 MG TABLET GT SCH (08:20)
[2020-07-16] MEDS: APIXABAN 2.5 MG TABLET GT SCH ×2 (08:21→20:23)
[2020-07-16] MEDS: QUETIAPINE FUMARATE 25 MG TABLET GT SCH ×2 (08:21→16:22)
[2020-07-16] MEDS: MIRALAX 17 GM POWD.PACK GT SCH (08:21)
[2020-07-16] MEDS: ZINC SULFATE 220 MG CAPSULE GT SCH (08:21)
[2020-07-16] MEDS: FUROSEMIDE 20 MG TABLET GT SCH (08:21)
[2020-07-16] MEDS: ARGININE/GLUTAMINE/CALCIUM BMB 1 EACH POWD.PACK GT SCH (08:28)
[2020-07-16] MEDS: METOPROLOL TARTRATE 50 MG TABLET GT SCH ×2 (08:29→20:18)
[2020-07-16] MEDS: CLONIDINE HCL 0.1 MG TABLET GT SCH ×2 (08:30→16:23)
[2020-07-16] MEDS: INSULIN GLARGINE,HUM 300 UNITS/3 ML CARTRIDGE SQ SCH ×2 (08:33→21:42)
[2020-07-16] MEDS: CLOTRIMAZOLE 1% CREAM 30 GM TUBE TOP SCH ×2 (08:36→16:32)
[2020-07-16] MEDS: CADEXOMER IODINE 40 GM TUBE TOP SCH (08:36)
[2020-07-16 11:07] LABS: A/G RATIO 0.3 (0.7-1.7); ALBUMIN 2.1 g/dL (2.9-4.4); ALPHA-1-GLOBULIN 0.5 g/dL (0.0-0.4); ALPHA-2-GLOBULIN 1.6 g/dL (0.4-1.0); BETA GLOBULIN 1.2 g/dL (0.7-1.3); GAMMA GLOBULIN 2.8 g/dL (0.4-1.8); GLOBULIN, TOTAL 6.1 g/dL (2.2-3.9); M-SPIKE Not Observed g/dL (Not Observed)
[2020-07-16] MEDS: FERROUS SULFATE 300 MG/5 ML LIQUID UDC GT SCH ×2 (11:34→20:18)
[2020-07-16 12:11] VITALS: BP 100/56
[2020-07-16] MEDS: EPOETIN ALFA 10,000 UNITS/ML VIAL SQ SCH (13:14)
--- NOTE | 2020-07-16 13:18 | NUR ---
BLUE arterial doppler was done 05/25/20 no significant stenosis, as well and lower arterial extremeties.
[2020-07-16] MEDS: GLUCERNA 1.2 1000ML LIQUID GT PRN (14:49)
[2020-07-16] MEDS: IV NS 1000 ML 1,000 ML IV PRN (14:59)
[2020-07-16 16:13] VITALS: BP 96/46
--- NOTE | 2020-07-16 20:00 | NUR ---
ASLEEP. WITH T TRAP NOTED AT 3 LITERS WITH HUMIDIFIER. BILATERAL RESTRAINTS NOTED, NECROTIC OF BILATERAL FOOT NOTED. REPOSITINED FOR COMFORT,G TUBE TOLERATING WELL.SUCTIONED WITH THICK WHITISH SECRETION NOTED.,SUCTION AT INTERVAL.
[2020-07-16 20:02] VITALS: BP 115/58
[2020-07-16] MEDS: GABAPENTIN 300 MG CAPSULE GT SCH (20:17)
[2020-07-16 23:10] LABS: EOSINOPHILS # (AUTO) 0.2 K/uL (0.0-0.7); LYMPHOCYTES # (AUTO) 0.8 K/uL (20.0-40.0); MONOCYTES # (AUTO) 0.5 K/uL (2.0-10.0)
[2020-07-16 23:12] LABS: BASOPHILS % (AUTO) 0.5 % (0.0-2.0); EOSINOPHILS % (AUTO) 2.5 % (0.0-7.0); HEMATOCRIT 23.2 % (31.2-41.9); HEMOGLOBIN 7.5 g/dL (10.9-14.3); LYMPHOCYTES % (AUTO) 8.7 % (20.5-51.5); MEAN CORPUSCULAR HEMOGLOBIN 29.9 uug (24.7-32.8); MEAN CORPUSCULAR HGB CONC 32 g/dL (32.3-35.6); MEAN CORPUSCULAR VOLUME 92.9 fL (75.5-95.3); MONOCYTES % (AUTO) 4.9 % (0.0-11.0); NEUTROPHILS % (AUTO) 83.4 % (38.5-71.5); PLATELET COUNT (AUTO) 340 K/uL (179-408); WHITE BLOOD COUNT (AUTO) 9.6 K/uL (3.8-11.8)
[2020-07-16 23:35] LABS: RED BLOOD CELL COUNT(AUTO) 2.49 MIL/uL (3.63-4.92)
[2020-07-16 23:36] LABS: CREATININE 2.3 mg/dL (0.6-1.3); POTASSIUM 3.2 mmol/L (3.5-5.1)
[2020-07-17 00:29] VITALS: BP 113/54
[2020-07-17] MEDS: BLOOD SUGAR DIAGNOSTIC 1 EACH STRIP VI SCH ×4 (01:18→17:13)
[2020-07-17] MEDS: INSULIN REGULAR, HUMAN 300 UNIT/3 ML VIAL SQ PRN ×4 (01:22→17:15)
--- NOTE | 2020-07-17 04:59 | NUR ---
Called dr lugo regarding sodium chloride iv at 80cc/hr with a sodium of 162, no further orders made.had a big bowel movement, mepelex changed , repositioned for comfort
[2020-07-17] MEDS: CEFTRIAXONE 1 G in IV DEXTROSE 5% 50 ML IV SCH (05:07)
[2020-07-17 05:08] VITALS: BP 139/64
[2020-07-17] MEDS: IV NS 1000 ML 1,000 ML IV PRN (05:54)
--- NOTE | 2020-07-17 06:00 | NUR ---
antibioticgoing on normal saline turned off at 0800 sodium 170.
--- NOTE | 2020-07-17 06:36 | NUR ---
CONDITION UNCHANGED,SUCTIONE PRN
[2020-07-17 07:10] LABS: CREATININE 2.1 mg/dL (0.6-1.3); POTASSIUM 3.6 mmol/L (3.5-5.1)
[2020-07-17 07:25] LABS: EOSINOPHILS # (AUTO) 0.2 K/uL (0.0-0.7); MONOCYTES # (AUTO) 0.5 K/uL (2.0-10.0)
[2020-07-17 07:27] LABS: BASOPHILS % (AUTO) 0.5 % (0.0-2.0); EOSINOPHILS % (AUTO) 2.1 % (0.0-7.0); HEMATOCRIT 24.3 % (31.2-41.9); LYMPHOCYTES % (AUTO) 9.9 % (20.5-51.5); MEAN CORPUSCULAR HEMOGLOBIN 28.6 uug (24.7-32.8); MEAN CORPUSCULAR HGB CONC 30 g/dL (32.3-35.6); MEAN CORPUSCULAR VOLUME 93.9 fL (75.5-95.3); MONOCYTES % (AUTO) 4.9 % (0.0-11.0); NEUTROPHILS # (AUTO) 8.2 K/uL (1.8-8.9); NEUTROPHILS % (AUTO) 82.6 % (38.5-71.5); PLATELET COUNT (AUTO) 350 K/uL (179-408); RED BLOOD CELL COUNT(AUTO) 2.59 MIL/uL (3.63-4.92); WHITE BLOOD COUNT (AUTO) 9.9 K/uL (3.8-11.8)
[2020-07-17 07:55] LABS: HEMOGLOBIN 7.4 g/dL (10.9-14.3)
[2020-07-17] MEDS ORDERED: IV D5W 1000ML 1,000 ML IV PRN (08:15)
[2020-07-17] MEDS ORDERED: IV 1/2NS 1000 ML 1,000 ML IV PRN (08:15)
[2020-07-17] MEDS: CLONIDINE HCL 0.1 MG TABLET GT SCH ×2 (09:00→16:28)
[2020-07-17] MEDS: METOPROLOL TARTRATE 50 MG TABLET GT SCH ×2 (09:00→20:51)
--- NOTE | 2020-07-17 09:00 | NUR ---
awake but confused, 02 at 5l via trache, suctioned of thick phlegm via trache closed circuit, oral care give, GT in place- tube fdg Glucerna 1.2 at 80ml/hr- no residual noted, SENIOR IT SPECIALIST George here and informed of Na 170 and pt is diabetic, IVF 1/2 Ns at 80ml/hr, kept head of bed elevated, has multiple skin issues, will continue to monitor
[2020-07-17] MEDS: CHOLECALCIFEROL 1,000 UNIT TABLET GT SCH (09:18)
[2020-07-17] MEDS: ASCORBIC ACID 500 MG TABLET GT SCH (09:18)
[2020-07-17] MEDS: MULTIVIT, IRON, MIN NO. 8, FA TABLET GT SCH (09:18)
[2020-07-17] MEDS: FUROSEMIDE 20 MG TABLET GT SCH (09:23)
[2020-07-17] MEDS: APIXABAN 2.5 MG TABLET GT SCH ×2 (09:23→20:54)
[2020-07-17] MEDS: QUETIAPINE FUMARATE 25 MG TABLET GT SCH ×2 (09:24→16:25)
[2020-07-17] MEDS: ZINC SULFATE 220 MG CAPSULE GT SCH (09:24)
[2020-07-17] MEDS: CADEXOMER IODINE 40 GM TUBE TOP SCH (09:24)
[2020-07-17] MEDS: MIRALAX 17 GM POWD.PACK GT SCH (09:25)
[2020-07-17] MEDS: INSULIN GLARGINE,HUM 300 UNITS/3 ML CARTRIDGE SQ SCH ×2 (09:30→21:06)
[2020-07-17] MEDS: ARGININE/GLUTAMINE/CALCIUM BMB 1 EACH POWD.PACK GT SCH (09:33)
[2020-07-17] MEDS: IV 1/2NS 1000 ML 1,000 ML IV PRN ×2 (09:39→23:03)
[2020-07-17] MEDS: CLOTRIMAZOLE 1% CREAM 30 GM TUBE TOP SCH ×2 (09:48→16:26)
[2020-07-17] MEDS: FERROUS SULFATE 300 MG/5 ML LIQUID UDC GT SCH ×2 (11:43→18:14)
[2020-07-17 11:49] VITALS: BP 102/53
[2020-07-17] MEDS: ACETAMINOPHEN 650 MG/20.3 ML LIQUID UDC GT PRN (15:37)
--- NOTE | 2020-07-17 15:37 | NUR ---
temp -99.6- tylenol via GT given, repositioned q2h with heels off loaded width pillows, head of bed elevated, tolerating tube fdg well, suctioned prn of thick phlegm
[2020-07-17 16:00] VITALS: BP 104/56
[2020-07-17] MEDS: GLUCERNA 1.2 1000ML LIQUID GT PRN (16:25)
--- NOTE | 2020-07-17 17:49 | NUR ---
no distress noted, remained on 5l 02 via trache, feeding tolerated well, no n/v aspiration precautions observed, safety measures maintained, mittens on both hands
--- NOTE | 2020-07-17 19:30 | NUR ---
Received patient in bed, awake and alert. Patient on trach, no s/s of respiratory distress. IV access on L forearm with two lumen, intact and patent, with bilateral hand mittens, on Gtube feeding at 80ml/hr for 20 hours, with Bell catheter draining well. Will continue to monitor.
[2020-07-17 20:25] VITALS: BP 131/62
[2020-07-17] MEDS: GABAPENTIN 300 MG CAPSULE GT SCH (20:51)
[2020-07-18] MEDS: BLOOD SUGAR DIAGNOSTIC 1 EACH STRIP VI SCH ×4 (00:11→16:51)
[2020-07-18] MEDS: INSULIN REGULAR, HUMAN 300 UNIT/3 ML VIAL SQ PRN ×2 (00:17→05:28)
[2020-07-18] MEDS: ACETAMINOPHEN 650 MG/20.3 ML LIQUID UDC GT PRN (00:52)
[2020-07-18 01:11] VITALS: BP 127/88
[2020-07-18] MEDS: CEFTRIAXONE 1 G in IV DEXTROSE 5% 50 ML IV SCH (05:15)
[2020-07-18 05:57] VITALS: BP 131/68
--- NOTE | 2020-07-18 06:10 | NUR ---
Flush not given. Patient throw up. Addendum: 07/18/20 at 0613 by NIMISHA LIM RN Amended: Links added.
--- NOTE | 2020-07-18 06:45 | NUR ---
Patient in bed, awake, no respiratory distress noted, no pain or discomfort noted, feeding tolerated well, medications tolerated well, safety measures maintained, mittens on bilateral hands, robbins cath draining well.
[2020-07-18 07:06] LABS: MONOCYTES # (AUTO) 0.5 K/uL (2.0-10.0)
[2020-07-18 07:08] LABS: BASOPHILS # (AUTO) 0.1 K/uL (0.0-8.0); BASOPHILS % (AUTO) 0.6 % (0.0-2.0); CREATININE 1.8 mg/dL (0.6-1.3); EOSINOPHILS # (AUTO) 0.2 K/uL (0.0-0.7); EOSINOPHILS % (AUTO) 1.7 % (0.0-7.0); HEMATOCRIT 24.7 % (31.2-41.9); LYMPHOCYTES % (AUTO) 8.3 % (20.5-51.5); MEAN CORPUSCULAR HEMOGLOBIN 27.7 uug (24.7-32.8); MEAN CORPUSCULAR HGB CONC 30 g/dL (32.3-35.6); MEAN CORPUSCULAR VOLUME 93.7 fL (75.5-95.3); MONOCYTES % (AUTO) 3.7 % (0.0-11.0); NEUTROPHILS # (AUTO) 10.6 K/uL (1.8-8.9); NEUTROPHILS % (AUTO) 85.7 % (38.5-71.5); PLATELET COUNT (AUTO) 363 K/uL (179-408); POTASSIUM 3.2 mmol/L (3.5-5.1); RED BLOOD CELL COUNT(AUTO) 2.63 MIL/uL (3.63-4.92); WHITE BLOOD COUNT (AUTO) 12.3 K/uL (3.8-11.8)
--- NOTE | 2020-07-18 08:00 | NUR ---
Aspiration precaution implemented. HOB elevated. Pt vomited green gastric juices. Suction pt whitish mucus. Call light is within reach.
--- NOTE | 2020-07-18 08:00 | NUR ---
Held Gtube Feeding. More gastric juices came out and vomited 2nd time. Zofran still not due. HOB elevated and continue with aspiration precaution. Call light is within reach. Pt cooperative and able to answer to yes or no questions. Mittens off pt alert to name and cooperative.
[2020-07-18 08:31] LABS: HEMOGLOBIN 7.3 g/dL (10.9-14.3)
[2020-07-18] MEDS: FUROSEMIDE 20 MG TABLET GT SCH (08:33)
[2020-07-18] MEDS: QUETIAPINE FUMARATE 25 MG TABLET GT SCH ×2 (08:33→16:49)
[2020-07-18] MEDS: MULTIVIT, IRON, MIN NO. 8, FA TABLET GT SCH (08:33)
[2020-07-18] MEDS: ZINC SULFATE 220 MG CAPSULE GT SCH (08:33)
[2020-07-18] MEDS: CHOLECALCIFEROL 1,000 UNIT TABLET GT SCH (08:33)
[2020-07-18] MEDS: ASCORBIC ACID 500 MG TABLET GT SCH (08:34)
[2020-07-18] MEDS: MIRALAX 17 GM POWD.PACK GT SCH (08:36)
[2020-07-18] MEDS: APIXABAN 2.5 MG TABLET GT SCH ×2 (08:38→21:49)
[2020-07-18] MEDS: METOPROLOL TARTRATE 50 MG TABLET GT SCH ×2 (08:47→21:00)
[2020-07-18] MEDS: ARGININE/GLUTAMINE/CALCIUM BMB 1 EACH POWD.PACK GT SCH (08:51)
[2020-07-18] MEDS: INSULIN GLARGINE,HUM 300 UNITS/3 ML CARTRIDGE SQ SCH ×2 (08:53→21:55)
[2020-07-18] MEDS: CLOTRIMAZOLE 1% CREAM 30 GM TUBE TOP SCH ×2 (08:54→16:49)
[2020-07-18] MEDS: CADEXOMER IODINE 40 GM TUBE TOP SCH (08:55)
[2020-07-18] MEDS: CLONIDINE HCL 0.1 MG TABLET GT SCH ×2 (08:56→16:49)
[2020-07-18] MEDS: FERROUS SULFATE 300 MG/5 ML LIQUID UDC GT SCH ×2 (08:57→21:47)
--- NOTE | 2020-07-18 09:00 | NUR ---
Pt more awake and alert. PT able to make her needs known by talking simple sentence. Pt follows directions.
[2020-07-18] MEDS: POTASSIUM CHLORIDE 50 ML IV SCH ×2 (09:42→10:01)
[2020-07-18 12:00] VITALS: BP 131/73
[2020-07-18] MEDS ORDERED: SOD FERRIC GLUC COMPLX/SUCROSE 125 MG in IV NORMAL SALINE 100 ML IV ONE (14:00)
[2020-07-18 14:12] LABS: BILIRUBIN,DIRECT 0.1 mg/dL (0.0-0.2); BILIRUBIN,TOTAL 0.1 mg/dL (0.2-1.0); TOTAL PROTEIN, SERUM 8.1 g/dL (6.4-8.2)
--- NOTE | 2020-07-18 18:38 | NUR ---
Pt pulled out her IV. Pt states "Im Sorry I didnt mean to take it out". Attempted IV on left fa unsuccessful. Viktoria aware of abd ct and kub results.
[2020-07-18 20:00] VITALS: BP 106/67
--- NOTE | 2020-07-18 20:22 | NUR ---
Patient in bed awake alert x1.HOB elevated with trach in place . No s/s of distress noted.Gtube in place. Denied nausea .No vomiting at this time.Glucerna 1.2 running at 80 cc/ml .Tolerated well.Bell catheter draining well with yellow output.Midline was out earlier per AM nurse report and hui Blum was made aware .Senior Reactor Operator was notified for midline re-insertion.Stated it will be done tomorrow. Inserted new peripheral line on left AC 22 g with good blood return. Tolerated well.IVF running at 80 cc/ml.Patient noted with BM x1. Changed and repositioned patient.Wound care provided.Aspiration precaution observed at all times .Will continue to monitor.
[2020-07-18] MEDS: GABAPENTIN 300 MG CAPSULE GT SCH (21:31)
[2020-07-18] MEDS: HYDROCODONE/APAP 5-325MG TABLET PO PRN (22:39)
[2020-07-19] MEDS: BLOOD SUGAR DIAGNOSTIC 1 EACH STRIP VI SCH ×4 (00:15→17:38)
[2020-07-19] MEDS: INSULIN REGULAR, HUMAN 300 UNIT/3 ML VIAL SQ PRN ×4 (00:17→17:38)
[2020-07-19 01:16] VITALS: BP 127/71
[2020-07-19] MEDS: IV D5 1/2 NS 1000 ML 1,000 ML IV PRN (04:17)
[2020-07-19 04:54] VITALS: BP 120/82
[2020-07-19] MEDS: CEFTRIAXONE 1 G in IV DEXTROSE 5% 50 ML IV SCH (05:11)
[2020-07-19 07:21] LABS: BASOPHILS % (AUTO) 0.4 % (0.0-2.0); EOSINOPHILS # (AUTO) 0.3 K/uL (0.0-0.7); EOSINOPHILS % (AUTO) 2.2 % (0.0-7.0); HEMATOCRIT 25.5 % (31.2-41.9); HEMOGLOBIN 7.6 g/dL (10.9-14.3); LYMPHOCYTES # (AUTO) 0.9 K/uL (20.0-40.0); LYMPHOCYTES % (AUTO) 7.6 % (20.5-51.5); MEAN CORPUSCULAR HEMOGLOBIN 27.5 uug (24.7-32.8); MEAN CORPUSCULAR HGB CONC 30 g/dL (32.3-35.6); MEAN CORPUSCULAR VOLUME 92.2 fL (75.5-95.3); MONOCYTES # (AUTO) 0.4 K/uL (2.0-10.0); MONOCYTES % (AUTO) 3.7 % (0.0-11.0); NEUTROPHILS # (AUTO) 10.3 K/uL (1.8-8.9); NEUTROPHILS % (AUTO) 86.1 % (38.5-71.5); PLATELET COUNT (AUTO) 381 K/uL (179-408); RED BLOOD CELL COUNT(AUTO) 2.77 MIL/uL (3.63-4.92)
[2020-07-19 07:27] LABS: CREATININE 1.6 mg/dL (0.6-1.3)
--- NOTE | 2020-07-19 07:55 | NUR ---
Received PT in bed, awake AO X 2. Forgetful and needs frequent reorientation. No acute distress or SOB noted. All pertinent information given during report. No complain noted at this time. Safety measures provided, call light within reach, bed low and lock. Will continue to monitor.
--- NOTE | 2020-07-19 08:40 | NUR ---
6875 - Received critical values: Na 163 0707 - Notified Viktoria Delong. New order placed. Nurse carried out orders
[2020-07-19] MEDS: MIRALAX 17 GM POWD.PACK GT SCH (09:23)
[2020-07-19] MEDS: CHOLECALCIFEROL 1,000 UNIT TABLET GT SCH (09:23)
[2020-07-19] MEDS: ASCORBIC ACID 500 MG TABLET GT SCH (09:24)
[2020-07-19] MEDS: ZINC SULFATE 220 MG CAPSULE GT SCH (09:24)
[2020-07-19] MEDS: QUETIAPINE FUMARATE 25 MG TABLET GT SCH ×2 (09:24→17:17)
[2020-07-19] MEDS: MULTIVIT, IRON, MIN NO. 8, FA TABLET GT SCH (09:24)
[2020-07-19] MEDS: APIXABAN 2.5 MG TABLET GT SCH ×2 (09:25→20:34)
[2020-07-19] MEDS: CADEXOMER IODINE 40 GM TUBE TOP SCH (09:27)
[2020-07-19] MEDS: CLOTRIMAZOLE 1% CREAM 30 GM TUBE TOP SCH ×2 (09:27→17:18)
[2020-07-19] MEDS: ARGININE/GLUTAMINE/CALCIUM BMB 1 EACH POWD.PACK GT SCH (09:28)
[2020-07-19] MEDS: INSULIN GLARGINE,HUM 300 UNITS/3 ML CARTRIDGE SQ SCH ×2 (09:32→20:34)
[2020-07-19] MEDS: FUROSEMIDE 20 MG TABLET GT SCH (09:33)
[2020-07-19] MEDS: CLONIDINE HCL 0.1 MG TABLET GT SCH (09:44)
[2020-07-19] MEDS: METOPROLOL TARTRATE 50 MG TABLET GT SCH ×2 (09:44→20:40)
[2020-07-19] MEDS: FERROUS SULFATE 300 MG/5 ML LIQUID UDC GT SCH ×2 (10:01→18:22)
[2020-07-19] MEDS: POTASSIUM CHLORIDE 50 ML IV SCH ×3 (10:01→12:07)
[2020-07-19] MEDS ORDERED: CLONIDINE HCL 0.1 MG TABLET GT PRN (10:45)
[2020-07-19 11:34] VITALS: BP 112/59
[2020-07-19 16:27] VITALS: BP 111/74
--- NOTE | 2020-07-19 18:50 | NUR ---
Received PT in bed, awake AO X 2. Forgetful and needs frequent reorientation. PT is scheduled for surgery tomorrow at 0730. Surgery will continuous pickling line pickler PT from unit at 0645. Consent signed. Orders placed by Dr. Lamar. No acute distress or SOB noted. All pertinent information given during report. No complain noted at this time. Safety measures provided, call light within reach, bed low and lock. Will endorse to shift supervisor melting nurse.
[2020-07-19 20:00] VITALS: BP 125/62
[2020-07-19] MEDS: GABAPENTIN 300 MG CAPSULE GT SCH (20:31)
[2020-07-19] MEDS: GLUCERNA 1.2 1000ML LIQUID GT PRN (22:51)
--- NOTE | 2020-07-19 23:18 | NUR ---
PATIENT NOTED WITH EPISODES OF ATTEMPTING TO REMOVE O2 CONNECTION. EXPLAINED IMPORTANCE AND RISK AND BENEFITS. PATIENT WITH BILATERAL MITTENS FOR PREVENTING PULLING OUT OF LIFE-SUSTAINING TUBES. WILL CONTINUE TO MONITOR PATIENT AND ATTEND TO PATIENT'S NEEDS.
[2020-07-20] VITALS: BP 133/66
[2020-07-20] MEDS: HYDROCODONE/APAP 5-325MG TABLET PO PRN (00:04)
[2020-07-20] MEDS: BLOOD SUGAR DIAGNOSTIC 1 EACH STRIP VI SCH ×6 (00:04→18:44)
[2020-07-20] MEDS: INSULIN REGULAR, HUMAN 300 UNIT/3 ML VIAL SQ PRN ×2 (00:08→05:24)
--- NOTE | 2020-07-20 00:10 | NUR ---
PATIENT PLACED NPO PRE-OP FOR PROCEDURE.
[2020-07-20] MEDS: IV D5 1/2 NS 1000 ML 1,000 ML IV PRN (01:45)
[2020-07-20 04:00] VITALS: BP 150/69
[2020-07-20] MEDS: CEFTRIAXONE 1 G in IV DEXTROSE 5% 50 ML IV SCH (05:11)
[2020-07-20 07:04] LABS: CREATININE 1.5 mg/dL (0.6-1.3); POTASSIUM 3.4 mmol/L (3.5-5.1)
[2020-07-20 07:14] LABS: IRON, SERUM 20 ug/dL (50-175)
[2020-07-20 07:15] LABS: BASOPHILS # (AUTO) 0.1 K/uL (0.0-8.0); EOSINOPHILS # (AUTO) 0.3 K/uL (0.0-0.7); LYMPHOCYTES # (AUTO) 1.2 K/uL (20.0-40.0); MONOCYTES # (AUTO) 0.4 K/uL (2.0-10.0); MONOCYTES % (AUTO) 4.8 % (0.0-11.0)
[2020-07-20 07:19] LABS: BASOPHILS % (AUTO) 0.7 % (0.0-2.0); EOSINOPHILS % (AUTO) 3.7 % (0.0-7.0); HEMATOCRIT 23.9 % (31.2-41.9); LYMPHOCYTES % (AUTO) 12.6 % (20.5-51.5); MEAN CORPUSCULAR HEMOGLOBIN 27.6 uug (24.7-32.8); MEAN CORPUSCULAR HGB CONC 30 g/dL (32.3-35.6); MEAN CORPUSCULAR VOLUME 93.2 fL (75.5-95.3); NEUTROPHILS # (AUTO) 7.2 K/uL (1.8-8.9); NEUTROPHILS % (AUTO) 78.2 % (38.5-71.5); PLATELET COUNT (AUTO) 358 K/uL (179-408); RED BLOOD CELL COUNT(AUTO) 2.56 MIL/uL (3.63-4.92); WHITE BLOOD COUNT (AUTO) 9.2 K/uL (3.8-11.8)
[2020-07-20 07:29] LABS: *OCCULT BLOOD STOOL NEGATIVE (NEGATIVE)
--- NOTE | 2020-07-20 07:30 | NUR ---
IN BED AWAKE WITH EYES OPEN AND EYE CONTACT, NO SS OF PAIN OR DISTRESS WITH CURRENT O2 AT 5L NC VIA TRACH SATURATING 99%. CONTINUE WITH CURRENT TX PLAN
[2020-07-20 07:55] LABS: FERRITIN 1378 ng/mL (8-252)
[2020-07-20 08:15] LABS: HEMOGLOBIN 7.1 g/dL (10.9-14.3)
[2020-07-20] MEDS: CHOLECALCIFEROL 1,000 UNIT TABLET GT SCH (09:17)
[2020-07-20] MEDS: MULTIVIT, IRON, MIN NO. 8, FA TABLET GT SCH (09:18)
[2020-07-20] MEDS: ZINC SULFATE 220 MG CAPSULE GT SCH (09:18)
[2020-07-20] MEDS: QUETIAPINE FUMARATE 25 MG TABLET GT SCH ×2 (09:18→16:42)
[2020-07-20] MEDS: ASCORBIC ACID 500 MG TABLET GT SCH (09:18)
[2020-07-20] MEDS: APIXABAN 2.5 MG TABLET GT SCH ×2 (09:22→21:07)
[2020-07-20] MEDS: METOPROLOL TARTRATE 50 MG TABLET GT SCH ×2 (09:30→21:04)
[2020-07-20] MEDS: ARGININE/GLUTAMINE/CALCIUM BMB 1 EACH POWD.PACK GT SCH (09:50)
[2020-07-20 09:56] LABS: CALCITRIOL VIT D,1,25 DIHYDROX 21.2 pg/mL (19.9-79.3)
[2020-07-20] MEDS: CADEXOMER IODINE 40 GM TUBE TOP SCH (09:59)
[2020-07-20] MEDS: CLOTRIMAZOLE 1% CREAM 30 GM TUBE TOP SCH ×2 (10:00→16:43)
[2020-07-20] MEDS: MIRALAX 17 GM POWD.PACK GT SCH (10:00)
[2020-07-20] MEDS: INSULIN GLARGINE,HUM 300 UNITS/3 ML CARTRIDGE SQ SCH ×2 (10:02→21:06)
[2020-07-20] MEDS: FERROUS SULFATE 300 MG/5 ML LIQUID UDC GT SCH ×2 (10:05→18:44)
[2020-07-20] MEDS ORDERED: POTASSIUM CHLORIDE 50 ML IV SCH (11:15)
[2020-07-20 12:33] VITALS: BP 105/61
[2020-07-20 15:46] VITALS: BP 106/65
--- NOTE | 2020-07-20 17:30 | NUR ---
BLOOD SUGAR 60, PATIENT WARM AND DRY, NO SIGNS HYPOGLYCEMIA. PROTOCOL INITIATED. WILL RE-CHECK SUGAR IN 15 MINS
--- NOTE | 2020-07-20 18:37 | NUR ---
CONTINUE NEURO OBSERVATION AND PAIN MANAGEMENT. DC PLAN IN PROGRESS Addendum: 07/20/20 at 1839 by MICHA BANGURA RN ERROR
--- NOTE | 2020-07-20 18:39 | NUR ---
LATEST BLOOD SUGAR 90
[2020-07-20 20:00] VITALS: BP 107/68
[2020-07-20] MEDS: GABAPENTIN 300 MG CAPSULE GT SCH (21:02)
[2020-07-20] MEDS: METRONIDAZOLE 500 MG/NS 100ML 500 MG in PREMIXED 1 EACH IV SCH (21:04)
[2020-07-20] MEDS: MORPHINE SULFATE 2 MG/1 ML DISP.SYRIN IV PRN (22:37)
[2020-07-21] VITALS: BP 102/67
[2020-07-21] MEDS: BLOOD SUGAR DIAGNOSTIC 1 EACH STRIP VI SCH ×5 (00:36→23:46)
[2020-07-21 04:00] VITALS: BP 112/58
[2020-07-21] MEDS: CEFTRIAXONE 1 G in IV DEXTROSE 5% 50 ML IV SCH (05:12)
[2020-07-21] MEDS: METRONIDAZOLE 500 MG/NS 100ML 500 MG in PREMIXED 1 EACH IV SCH ×3 (05:12→21:30)
[2020-07-21] MEDS: INSULIN REGULAR, HUMAN 300 UNIT/3 ML VIAL SQ PRN ×3 (05:46→23:48)
[2020-07-21 05:56] LABS: BASOPHILS # (AUTO) 0.1 K/uL (0.0-8.0); BASOPHILS % (AUTO) 0.6 % (0.0-2.0); EOSINOPHILS # (AUTO) 0.4 K/uL (0.0-0.7); HEMATOCRIT 22.9 % (31.2-41.9); LYMPHOCYTES % (AUTO) 10.5 % (20.5-51.5); MEAN CORPUSCULAR HEMOGLOBIN 28.2 uug (24.7-32.8); MEAN CORPUSCULAR HGB CONC 31 g/dL (32.3-35.6); MEAN CORPUSCULAR VOLUME 92.3 fL (75.5-95.3); MONOCYTES # (AUTO) 0.4 K/uL (2.0-10.0); MONOCYTES % (AUTO) 4.7 % (0.0-11.0); NEUTROPHILS # (AUTO) 7.5 K/uL (1.8-8.9); NEUTROPHILS % (AUTO) 80.2 % (38.5-71.5); PLATELET COUNT (AUTO) 257 K/uL (179-408); WHITE BLOOD COUNT (AUTO) 9.3 K/uL (3.8-11.8)
[2020-07-21 06:09] LABS: RED BLOOD CELL COUNT(AUTO) 2.49 MIL/uL (3.63-4.92)
[2020-07-21 06:13] LABS: CREATININE 1.5 mg/dL (0.6-1.3); PHOSPHOROUS 3.6 mg/dL (2.5-4.9); POTASSIUM 3.7 mmol/L (3.5-5.1)
--- NOTE | 2020-07-21 06:57 | NUR ---
Patient rested well; oral and trache care done; suctioned secretions via trache and orally; tolerated GTF; GTF off at 0600H; wound care done; safety maintained.
[2020-07-21] MEDS ORDERED: BUPIVACAINE/EPI PF 0.5% 10 ML VIAL ONE (07:38)
[2020-07-21] MEDS ORDERED: HYALURONIDASE,OVINE 200 UNITS/ML VIAL ONE (07:39)
[2020-07-21] MEDS ORDERED: LIDOCAINE HCL 2% 20 ML VIAL ONE (07:39)
[2020-07-21] MEDS ORDERED: TIMOLOL MALEATE 0.5% OPHT DROP 5 ML BOTTLE ONE (07:39)
[2020-07-21] MEDS ORDERED: MOXIFLOXACIN HCL 3 ML OPHT DROPS ONE (07:40)
[2020-07-21] MEDS: MIRALAX 17 GM POWD.PACK GT SCH (08:38)
[2020-07-21] MEDS: CHOLECALCIFEROL 1,000 UNIT TABLET GT SCH (08:39)
[2020-07-21] MEDS: METOPROLOL TARTRATE 50 MG TABLET GT SCH ×2 (08:39→20:22)
[2020-07-21] MEDS: QUETIAPINE FUMARATE 25 MG TABLET GT SCH ×2 (08:39→16:50)
[2020-07-21] MEDS: MULTIVIT, IRON, MIN NO. 8, FA TABLET GT SCH (08:40)
[2020-07-21] MEDS: ASCORBIC ACID 500 MG TABLET GT SCH (08:40)
[2020-07-21] MEDS: HYDROCODONE/APAP 5-325MG TABLET PO PRN (08:40)
[2020-07-21] MEDS: ZINC SULFATE 220 MG CAPSULE GT SCH (08:40)
[2020-07-21] MEDS: ARGININE/GLUTAMINE/CALCIUM BMB 1 EACH POWD.PACK GT SCH (08:41)
[2020-07-21] MEDS: CADEXOMER IODINE 40 GM TUBE TOP SCH (08:41)
[2020-07-21] MEDS: CLOTRIMAZOLE 1% CREAM 30 GM TUBE TOP SCH ×2 (08:42→16:51)
[2020-07-21] MEDS: APIXABAN 2.5 MG TABLET GT SCH (08:44)
[2020-07-21] MEDS: INSULIN GLARGINE,HUM 300 UNITS/3 ML CARTRIDGE SQ SCH ×2 (09:21→20:33)
[2020-07-21] MEDS: GLUCERNA 1.2 1000ML LIQUID GT PRN (09:49)
[2020-07-21] MEDS: FERROUS SULFATE 300 MG/5 ML LIQUID UDC GT SCH (11:43)
[2020-07-21 11:50] VITALS: BP 97/56
[2020-07-21] MEDS: MORPHINE SULFATE 2 MG/1 ML DISP.SYRIN IV PRN (14:15)
[2020-07-21 16:00] VITALS: BP 116/68
--- NOTE | 2020-07-21 19:54 | NUR ---
Received patient lying in bed. Confused and disoriented. No signs or symptoms of pain or SOB. Trach intact with 5L o2 with mist. GT feeding on going. NSR on tele at 94/min. IV site on left AC and midline on right upper arm intact and patent. Bell catheter intact and patent. hand mittens in place, Circulation on hands checked. Safety measure initiated. Continue to monitor.
[2020-07-21 20:03] VITALS: BP 122/68
[2020-07-21] MEDS: ACETAMINOPHEN 650 MG/20.3 ML LIQUID UDC GT PRN (20:22)
[2020-07-21] MEDS: GABAPENTIN 300 MG CAPSULE GT SCH (20:22)
[2020-07-22 00:03] VITALS: BP 105/52
[2020-07-22 04:03] VITALS: BP 136/55
[2020-07-22] MEDS: METRONIDAZOLE 500 MG/NS 100ML 500 MG in PREMIXED 1 EACH IV SCH (05:19)
[2020-07-22] MEDS: BLOOD SUGAR DIAGNOSTIC 1 EACH STRIP VI SCH ×3 (05:29→18:00)
[2020-07-22 05:37] LABS: BASOPHILS % (AUTO) 0.4 % (0.0-2.0); EOSINOPHILS # (AUTO) 0.4 K/uL (0.0-0.7); EOSINOPHILS % (AUTO) 4.8 % (0.0-7.0); HEMATOCRIT 22.4 % (31.2-41.9); LYMPHOCYTES # (AUTO) 1.1 K/uL (20.0-40.0); LYMPHOCYTES % (AUTO) 13.4 % (20.5-51.5); MEAN CORPUSCULAR HEMOGLOBIN 28.3 uug (24.7-32.8); MEAN CORPUSCULAR HGB CONC 31 g/dL (32.3-35.6); MEAN CORPUSCULAR VOLUME 90.7 fL (75.5-95.3); MONOCYTES # (AUTO) 0.4 K/uL (2.0-10.0); MONOCYTES % (AUTO) 5.3 % (0.0-11.0); NEUTROPHILS # (AUTO) 6.1 K/uL (1.8-8.9); NEUTROPHILS % (AUTO) 76.1 % (38.5-71.5); PLATELET COUNT (AUTO) 346 K/uL (179-408); WHITE BLOOD COUNT (AUTO) 8.1 K/uL (3.8-11.8)
[2020-07-22 05:42] LABS: RED BLOOD CELL COUNT(AUTO) 2.47 MIL/uL (3.63-4.92)
[2020-07-22] MEDS: ACETAMINOPHEN 650 MG/20.3 ML LIQUID UDC GT PRN (05:49)
[2020-07-22] MEDS: CEFTRIAXONE 1 G in IV DEXTROSE 5% 50 ML IV SCH (05:58)
[2020-07-22 06:03] LABS: BILIRUBIN,DIRECT 0.1 mg/dL (0.0-0.2); BILIRUBIN,TOTAL 0.2 mg/dL (0.2-1.0); CREATININE 1.3 mg/dL (0.6-1.3); PHOSPHOROUS 3.7 mg/dL (2.5-4.9); POTASSIUM 3.6 mmol/L (3.5-5.1); TOTAL PROTEIN, SERUM 7.3 g/dL (6.4-8.2)
--- NOTE | 2020-07-22 06:09 | NUR ---
No significant changes noted throughout the shift. No signs or symptoms of pain or SOB. Trach intact with 5L o2 with mist. Suction secretions PRN and able to obtain moderate amount of yellowish/whitish secretions. NSR on tele at 92/min. IV site on left AC and midline on right upper arm remains intact and patent. Bell catheter intact and patent. Hand mittens in place. Safety measure maintained.
--- NOTE | 2020-07-22 06:17 | NUR ---
@0605: Lab reported Albumin level 1.3. @0614: Informed COMMUNICATION SKILLS INSTRUCTOR Sagar Delong and ordered dietary consult. Order verified and will carry out.
--- NOTE | 2020-07-22 07:30 | NUR ---
Received report on pt, awake alert and oriented x2, resting in bed, O2 5L via trach with mist. pt on a first step mattress, pt has multiple necrotic areas on the toes, heels and right long finger. pt voids using robbins. G-Tube feedings, IV access on the right upper arm midline 18g TKO, left AC 22g. safety precautions in place. Will continue to monitor.
[2020-07-22] MEDS: METOPROLOL TARTRATE 50 MG TABLET GT SCH ×2 (09:00→21:08)
[2020-07-22] MEDS: MIRALAX 17 GM POWD.PACK GT SCH (09:00)
[2020-07-22] MEDS: CADEXOMER IODINE 40 GM TUBE TOP SCH (09:31)
[2020-07-22] MEDS: CLOTRIMAZOLE 1% CREAM 30 GM TUBE TOP SCH ×2 (09:32→16:47)
[2020-07-22] MEDS: INSULIN GLARGINE,HUM 300 UNITS/3 ML CARTRIDGE SQ SCH ×2 (09:34→21:10)
[2020-07-22] MEDS: ZINC SULFATE 220 MG CAPSULE GT SCH (09:35)
[2020-07-22] MEDS: MULTIVIT, IRON, MIN NO. 8, FA TABLET GT SCH (09:36)
[2020-07-22] MEDS: CHOLECALCIFEROL 1,000 UNIT TABLET GT SCH (09:36)
[2020-07-22] MEDS: QUETIAPINE FUMARATE 25 MG TABLET GT SCH ×2 (09:36→16:44)
[2020-07-22] MEDS: ASCORBIC ACID 500 MG TABLET GT SCH (09:36)
[2020-07-22] MEDS: ARGININE/GLUTAMINE/CALCIUM BMB 1 EACH POWD.PACK GT SCH (09:37)
[2020-07-22 11:32] VITALS: BP 134/75
[2020-07-22] MEDS: METRONIDAZOLE 500 MG TABLET GT SCH ×2 (14:17→21:08)
[2020-07-22 16:00] VITALS: BP 132/79
--- NOTE | 2020-07-22 19:28 | NUR ---
pt resting in bed, medications given as ordered. no signs of distress noted. bed in low and locked position, safety precautions in place. Will endorse to oncoming nurse.
--- NOTE | 2020-07-22 19:35 | NUR ---
Received report, patient in bed, awake alert and oriented x2. IV access on R upper arm midline intact and patent, on oxygen 5L via trach with mist. with Gtube feeding. with robbins catheter voiding well, patient on a first step mattress, pt has multiple necrotic areas on the toes, heels and right finger, with bilateral soft mittens, safety precautions in place. Will continue to monitor.
[2020-07-22 20:00] VITALS: BP 111/62
[2020-07-22] MEDS: GABAPENTIN 300 MG CAPSULE GT SCH (21:08)
[2020-07-22] MEDS: IV D5W 1000ML 1,000 ML IV PRN (22:18)
[2020-07-22 23:30] VITALS: BP 106/61
[2020-07-22] MEDS ORDERED: AZITHROMYCIN 500 MG VIAL IV ONE (23:46)
[2020-07-23] VITALS (7 sets, daily range): BP systolic 102–122; BP diastolic 54–78
[2020-07-23] MEDS: AZITHROMYCIN IV 250 MG in IV DEXTROSE 5% 250 ML IV SCH ×2 (00:01→20:47)
[2020-07-23] MEDS: ACETAMINOPHEN 650 MG/20.3 ML LIQUID UDC GT PRN (00:01)
[2020-07-23] MEDS: BLOOD SUGAR DIAGNOSTIC 1 EACH STRIP VI SCH ×5 (00:12→23:59)
[2020-07-23] MEDS: INSULIN REGULAR, HUMAN 300 UNIT/3 ML VIAL SQ PRN (00:23)
[2020-07-23] MEDS: METRONIDAZOLE 500 MG TABLET GT SCH ×3 (05:26→22:21)
[2020-07-23] MEDS: CEFTRIAXONE 1 G in IV DEXTROSE 5% 50 ML IV SCH (05:26)
[2020-07-23 05:54] LABS: BASOPHILS % (AUTO) 0.6 % (0.0-2.0); EOSINOPHILS # (AUTO) 0.3 K/uL (0.0-0.7); EOSINOPHILS % (AUTO) 4.3 % (0.0-7.0); HEMATOCRIT 21.4 % (31.2-41.9); LYMPHOCYTES # (AUTO) 1.1 K/uL (20.0-40.0); LYMPHOCYTES % (AUTO) 15.1 % (20.5-51.5); MEAN CORPUSCULAR HEMOGLOBIN 28.2 uug (24.7-32.8); MEAN CORPUSCULAR HGB CONC 31 g/dL (32.3-35.6); MEAN CORPUSCULAR VOLUME 90.1 fL (75.5-95.3); MONOCYTES # (AUTO) 0.4 K/uL (2.0-10.0); MONOCYTES % (AUTO) 6.2 % (0.0-11.0); NEUTROPHILS # (AUTO) 5.2 K/uL (1.8-8.9); NEUTROPHILS % (AUTO) 73.8 % (38.5-71.5); PLATELET COUNT (AUTO) 328 K/uL (179-408)
[2020-07-23 06:01] LABS: HEMOGLOBIN 6.7 g/dL (10.9-14.3); RED BLOOD CELL COUNT(AUTO) 2.37 MIL/uL (3.63-4.92)
[2020-07-23 06:07] LABS: CREATININE 1.3 mg/dL (0.6-1.3); MAGNESIUM 1.9 mg/dL (1.8-2.4); POTASSIUM 3.4 mmol/L (3.5-5.1)
--- NOTE | 2020-07-23 06:51 | NUR ---
Patient asleep in bed, no s/s of respiratory distress. No pain or discomfort noted. Medications tolerated well. Blel draining well. IV access on right upper arm midline intact and patent. Safety measures in place.
[2020-07-23] MEDS ORDERED: FENTANYL CITRATE 100 MCG/2 ML AMPUL IV PRN (07:45)
[2020-07-23] MEDS ORDERED: MIDAZOLAM HCL 2 MG/2 ML VIAL IV PRN (07:45)
[2020-07-23] MEDS ORDERED: NALOXONE HCL 0.4 MG/ML AMPUL IV PRN (07:45)
[2020-07-23] MEDS ORDERED: FLUMAZENIL 0.5 MG/5 ML VIAL IV PRN (07:45)
--- NOTE | 2020-07-23 08:00 | NUR ---
Awake, confused, restless, non verbal. O2 at 5L/trach with O2 sat 0f 100%. NPO maintained. for CT guided for percutaneous drainage of perirenal abscess. Spoke with Dr. Pulido with orders. To radiology by bed with RT and PACU nurse
[2020-07-23 08:06] LABS: IMMUNOGLOBULIN A, SERUM 420 mg/dL (87-352)
[2020-07-23] MEDS: MIRALAX 17 GM POWD.PACK GT SCH (09:00)
[2020-07-23] MEDS ORDERED: LIDOCAINE HCL 1% 20 ML VIAL ONE (09:32)
[2020-07-23 10:07] LABS: *IMMUNOGLOBULIN G, SERUM 2468 mg/dL (586-1602); IMMUNOGLOBULIN M, SERUM 133 mg/dL (26-217)
--- NOTE | 2020-07-23 10:50 | NUR ---
Back from recovery, S/P CT guided percutaneous drainage of right perirenal abscess. Vital signs taken and recorded. With loose BM, incontinence care done. G tube feedings and medications due resumed. Secretions suctioned, oral care and trach care done. Repositioned comfortably
[2020-07-23] MEDS: METOPROLOL TARTRATE 50 MG TABLET GT SCH ×2 (12:07→20:52)
[2020-07-23] MEDS: ZINC SULFATE 220 MG CAPSULE GT SCH (12:08)
[2020-07-23] MEDS: ASCORBIC ACID 500 MG TABLET GT SCH (12:08)
[2020-07-23] MEDS: QUETIAPINE FUMARATE 25 MG TABLET GT SCH ×2 (12:08→17:36)
[2020-07-23] MEDS: CHOLECALCIFEROL 1,000 UNIT TABLET GT SCH (12:08)
[2020-07-23] MEDS: MULTIVIT, IRON, MIN NO. 8, FA TABLET GT SCH (12:08)
[2020-07-23] MEDS: ARGININE/GLUTAMINE/CALCIUM BMB 1 EACH POWD.PACK GT SCH (12:09)
[2020-07-23] MEDS: CADEXOMER IODINE 40 GM TUBE TOP SCH (12:10)
[2020-07-23] MEDS: CLOTRIMAZOLE 1% CREAM 30 GM TUBE TOP SCH ×2 (12:10→17:41)
[2020-07-23] MEDS: INSULIN GLARGINE,HUM 300 UNITS/3 ML CARTRIDGE SQ SCH ×2 (12:18→21:12)
[2020-07-23] MEDS: POTASSIUM CHLORIDE 50 ML IV SCH ×2 (12:41→13:30)
[2020-07-23] MEDS: EPOETIN ALFA 10,000 UNITS/ML VIAL SQ SCH (15:24)
--- NOTE | 2020-07-23 15:30 | NUR ---
[facility] followed up with blood bank. Blood not available, to be ordered with type and crossmatch.
--- NOTE | 2020-07-23 17:00 | NUR ---
per lab, patient has antibodies with type and screen, blood not yet available
[2020-07-23] MEDS: GLUCERNA 1.2 1000ML LIQUID GT PRN (17:43)
--- NOTE | 2020-07-23 18:26 | NUR ---
Secretions suctioned. Repositioned in bed comfortably. Bilateral hand mittens on, monitored per protocol. Tolerated Glucerna at 60ml/hr. IVF infusing.
--- NOTE | 2020-07-23 18:42 | NUR ---
Accordion drain/oc close drain intact with purulent drainage.
[2020-07-23] MEDS: GABAPENTIN 300 MG CAPSULE GT SCH (20:52)
[2020-07-23] MEDS: HYDROCODONE/APAP 5-325MG TABLET PO PRN (23:48)
[2020-07-24] VITALS (9 sets, daily range): BP systolic 109–155; BP diastolic 68–79
[2020-07-24] MEDS: INSULIN REGULAR, HUMAN 300 UNIT/3 ML VIAL SQ PRN (00:02)
[2020-07-24] MEDS: METRONIDAZOLE 500 MG TABLET GT SCH ×3 (05:12→22:42)
[2020-07-24] MEDS: CEFTRIAXONE 1 G in IV DEXTROSE 5% 50 ML IV SCH (05:12)
[2020-07-24] MEDS: BLOOD SUGAR DIAGNOSTIC 1 EACH STRIP VI SCH ×3 (05:29→17:28)
--- NOTE | 2020-07-24 05:59 | NUR ---
Patient alert oriented, no sob no chest pain, tele monitor sinus rhythm. Patient has episode of restless, facial grimacy, medicated with pain medication with effective results. Patient npo since midnight for am procedure. Patient trach intact, tx done, gt care intact and patent. Patient has multiple BM kept clean and dry, patient suctioned as ordered, with whitish yellow color sputum in moderate amount, patient has episode of refusing tracheal suction, causing her to gag at times,one episode of vomting, cont to encourage to all staff to suction her. Patient has no s/s of hypo/hypergylcemia noted. cont to monitor.
[2020-07-24 06:24] LABS: BASOPHILS % (AUTO) 0.7 % (0.0-2.0); EOSINOPHILS # (AUTO) 0.3 K/uL (0.0-0.7); EOSINOPHILS % (AUTO) 4.6 % (0.0-7.0); HEMATOCRIT 21.6 % (31.2-41.9); LYMPHOCYTES # (AUTO) 1.3 K/uL (20.0-40.0); MEAN CORPUSCULAR HEMOGLOBIN 27.9 uug (24.7-32.8); MEAN CORPUSCULAR HGB CONC 31 g/dL (32.3-35.6); MEAN CORPUSCULAR VOLUME 89.8 fL (75.5-95.3); MONOCYTES # (AUTO) 0.4 K/uL (2.0-10.0); MONOCYTES % (AUTO) 6.7 % (0.0-11.0); NEUTROPHILS # (AUTO) 4.6 K/uL (1.8-8.9); PLATELET COUNT (AUTO) 341 K/uL (179-408); WHITE BLOOD COUNT (AUTO) 6.6 K/uL (3.8-11.8)
[2020-07-24 06:38] LABS: CREATININE 1.4 mg/dL (0.6-1.3); MAGNESIUM 1.9 mg/dL (1.8-2.4); PHOSPHOROUS 3.4 mg/dL (2.5-4.9); POTASSIUM 3.6 mmol/L (3.5-5.1)
--- NOTE | 2020-07-24 07:30 | NUR ---
received pt report, pt resting in bed A/Ox2, on 5L O2 via trach with p-mist. Pt has a GT and drainage tube coming from the back with 45ml in collection pouch. Pt voids using Bell catheter, gangrene toes and on the right long finger. No signs of distress noted at this time. Will continue to monitor
[2020-07-24 07:37] LABS: HEMOGLOBIN 6.7 g/dL (10.9-14.3)
[2020-07-24] MEDS: ARGININE/GLUTAMINE/CALCIUM BMB 1 EACH POWD.PACK GT SCH (08:44)
[2020-07-24] MEDS: ASCORBIC ACID 500 MG TABLET GT SCH (08:45)
[2020-07-24] MEDS: QUETIAPINE FUMARATE 25 MG TABLET GT SCH ×2 (08:45→17:28)
[2020-07-24] MEDS: CHOLECALCIFEROL 1,000 UNIT TABLET GT SCH (08:45)
[2020-07-24] MEDS: MULTIVIT, IRON, MIN NO. 8, FA TABLET GT SCH (08:45)
[2020-07-24] MEDS: ZINC SULFATE 220 MG CAPSULE GT SCH (08:45)
[2020-07-24] MEDS: INSULIN GLARGINE,HUM 300 UNITS/3 ML CARTRIDGE SQ SCH ×2 (08:56→20:56)
[2020-07-24] MEDS: MIRALAX 17 GM POWD.PACK GT SCH (09:00)
[2020-07-24] MEDS: METOPROLOL TARTRATE 50 MG TABLET GT SCH ×2 (09:05→20:43)
[2020-07-24] MEDS: CADEXOMER IODINE 40 GM TUBE TOP SCH (09:21)
[2020-07-24] MEDS: CLOTRIMAZOLE 1% CREAM 30 GM TUBE TOP SCH ×2 (09:22→17:28)
[2020-07-24] MEDS: ACETAMINOPHEN 650 MG/20.3 ML LIQUID UDC GT PRN (09:32)
[2020-07-24] MEDS: IV D5W 1000ML 1,000 ML IV PRN (14:03)
[2020-07-24 16:45] LABS: BAND % (MANUAL) 1 % (0-10); EOSINOPHILS % (MANUAL) 1 % (0-8); LYMPHOCYTES % (MANUAL) 18 % (20-40); MONOCYTES % (MANUAL) 10 % (2-10); NEUTROPHILS % (MANUAL) 70 % (42-75)
--- NOTE | 2020-07-24 18:11 | NUR ---
Patient received 1 unit of packed red blood cells for hemoglobin value of 6.7. Patient tolerated infusion well. Infused through Right upper arm Midline. No adverse reaction noted. VS stable upon completion of unit: BP 132/77, Pulse 88, Temp 98.9. Patient resting quietly in her assigned bed. No acute distress noted. Respirations are even and unlabored. Post-transfusion, D5W restarted at 40 mL/hr. All medications given as ordered. No adverse reaction noted. Patient's needs met during this shift. Call light placed within reach. Bed is in low and locked position. Safety precautions in place.
[2020-07-24] MEDS: AZITHROMYCIN IV 250 MG in IV DEXTROSE 5% 250 ML IV SCH (20:36)
[2020-07-24] MEDS: GABAPENTIN 300 MG CAPSULE GT SCH (20:43)
--- NOTE | 2020-07-24 21:00 | NUR ---
PATIENT AWAKE ALERT BUT FORGETFUL ALSO. PATIENT HAS NO SOB NO CHEST PAIN. PATIENT TRACH IN PLACE, GT IN PLACE, DRAINAGE TUBE DRAINING AND PATENT. PATIENT HAS EPISODE OF KICKING OFF BED PILLOWS AND LINEN, RESTLESSNESS. PATIENT DENIES PAIN AT THIS TIME, PAIN. CONT TO MONITOR.
[2020-07-24] MEDS: HYDROCODONE/APAP 5-325MG TABLET PO PRN (21:35)
[2020-07-25] MEDS: BLOOD SUGAR DIAGNOSTIC 1 EACH STRIP VI SCH ×4 (00:47→18:09)
[2020-07-25] MEDS: GLUCERNA 1.2 1000ML LIQUID GT PRN (00:48)
[2020-07-25 01:18] VITALS: BP 133/89
--- NOTE | 2020-07-25 03:35 | NUR ---
PATIENT ALERT BUT FORGETFUL, WITH EPISODES OF AGITATION, CURSES THE RT. PATIENT HAS EPISODE OF RESISTIVE TO CARE, REFUSED TO BE SUCTIONED WHEN SHE NEEDED IT. PATIENT WAS REORIENTED, WITH SOME HELP. STAFF ALWAYS EXPLAIN ALL PROCEDURES BEFORE TOUCHING HER, EPISODE OF RESISTIVE TO CARE. PATIENT HAS ALSO EPISODE OF KICKING OFF THE BED HER LINEN AND COVERS, CHECK PATIENT FREQUENTLY, PLACE PILLOW BETWEEN SIDE RAILS TO PREVENT PUTTING HER FEET BETWEEN BED AND RAILS, CONT TO MONITOR.
[2020-07-25 04:00] VITALS: BP 161/79
[2020-07-25] MEDS: CEFTRIAXONE 1 G in IV DEXTROSE 5% 50 ML IV SCH (05:45)
[2020-07-25] MEDS: METRONIDAZOLE 500 MG TABLET GT SCH ×3 (05:45→21:02)
[2020-07-25 06:05] VITALS: BP 158/86
[2020-07-25 06:17] LABS: BASOPHILS % (AUTO) 0.6 % (0.0-2.0); EOSINOPHILS # (AUTO) 0.3 K/uL (0.0-0.7); EOSINOPHILS % (AUTO) 3.7 % (0.0-7.0); HEMATOCRIT 25.8 % (31.2-41.9); HEMOGLOBIN 8.3 g/dL (10.9-14.3); LYMPHOCYTES # (AUTO) 1.2 K/uL (20.0-40.0); LYMPHOCYTES % (AUTO) 17.4 % (20.5-51.5); MEAN CORPUSCULAR HEMOGLOBIN 28.3 uug (24.7-32.8); MEAN CORPUSCULAR HGB CONC 32 g/dL (32.3-35.6); MEAN CORPUSCULAR VOLUME 88.3 fL (75.5-95.3); MONOCYTES # (AUTO) 0.5 K/uL (2.0-10.0); MONOCYTES % (AUTO) 7.6 % (0.0-11.0); NEUTROPHILS # (AUTO) 5.1 K/uL (1.8-8.9); NEUTROPHILS % (AUTO) 70.7 % (38.5-71.5); PLATELET COUNT (AUTO) 367 K/uL (179-408); RED BLOOD CELL COUNT(AUTO) 2.92 MIL/uL (3.63-4.92); WHITE BLOOD COUNT (AUTO) 7.2 K/uL (3.8-11.8)
[2020-07-25 06:31] LABS: CREATININE 1.3 mg/dL (0.6-1.3); MAGNESIUM 2.1 mg/dL (1.8-2.4); PHOSPHOROUS 4.1 mg/dL (2.5-4.9); POTASSIUM 3.2 mmol/L (3.5-5.1)
--- NOTE | 2020-07-25 06:37 | NUR ---
PATIENT BP WAS ELEVATED AT 0400 161/79 NO HEADACHES, NO VOMITING NOTED, ASYMPTOMATIC, RECHECK PATIENT BP 158/78, WENT DOWN, PATIENT ASLEEP, NO S/S OF DISTRESS. TX CONTINUE ON BOTH FEET AND R HEELS.
[2020-07-25 06:40] LABS: THYROID STIMULATING HORMONE 2.052 mIU/mL (0.358-3.740)
--- NOTE | 2020-07-25 06:40 | NUR ---
PATIENT IS REMOVING HER HAND MITTENS, REORIENT PATIENT NOT TO PULLED OUT HER OXYGEN TUBE, MONITOR CLOSELY. ,
[2020-07-25] MEDS: MIRALAX 17 GM POWD.PACK GT SCH (08:40)
[2020-07-25] MEDS: QUETIAPINE FUMARATE 25 MG TABLET GT SCH ×2 (08:40→16:01)
[2020-07-25] MEDS: ZINC SULFATE 220 MG CAPSULE GT SCH (08:40)
[2020-07-25] MEDS: CHOLECALCIFEROL 1,000 UNIT TABLET GT SCH (08:40)
[2020-07-25] MEDS: ARGININE/GLUTAMINE/CALCIUM BMB 1 EACH POWD.PACK GT SCH (08:41)
[2020-07-25] MEDS: METOPROLOL TARTRATE 50 MG TABLET GT SCH ×2 (08:41→21:02)
[2020-07-25] MEDS: ASCORBIC ACID 500 MG TABLET GT SCH (08:41)
[2020-07-25] MEDS: POTASSIUM CHLORIDE 50 ML IV SCH ×4 (08:41→11:02)
[2020-07-25] MEDS: MULTIVIT, IRON, MIN NO. 8, FA TABLET GT SCH (08:41)
[2020-07-25] MEDS: INSULIN GLARGINE,HUM 300 UNITS/3 ML CARTRIDGE SQ SCH ×2 (08:46→21:00)
[2020-07-25] MEDS: CADEXOMER IODINE 40 GM TUBE TOP SCH (08:47)
[2020-07-25] MEDS: CLOTRIMAZOLE 1% CREAM 30 GM TUBE TOP SCH ×2 (08:47→16:01)
[2020-07-25] MEDS: MORPHINE SULFATE 2 MG/1 ML DISP.SYRIN IV PRN (10:11)
[2020-07-25 11:35] VITALS: BP 129/83
[2020-07-25] MEDS: ACETAMINOPHEN 650 MG/20.3 ML LIQUID UDC GT PRN ×2 (14:55→21:29)
[2020-07-25 15:15] VITALS: BP 106/82
--- NOTE | 2020-07-25 18:00 | NUR ---
Pt was able to pull out her mittens and t-piece several times throughout the day. Drainage from the kidney abscess drained 50cc. Drainage cath was flushed 10cc and on suction. PT tolerated tube feeding. No bleeding noted this shift.
[2020-07-25 20:03] VITALS: BP 146/75
[2020-07-25] MEDS: GABAPENTIN 300 MG CAPSULE GT SCH (21:02)
[2020-07-25] MEDS: AZITHROMYCIN IV 250 MG in IV DEXTROSE 5% 250 ML IV SCH (21:49)
[2020-07-26] VITALS: BP 140/77
[2020-07-26] MEDS: BLOOD SUGAR DIAGNOSTIC 1 EACH STRIP VI SCH ×5 (00:33→23:28)
[2020-07-26] MEDS: GLUCERNA 1.2 1000ML LIQUID GT PRN (01:48)
[2020-07-26 02:38] LABS: *BILIRUBIN,URIN NEGATIVE (NEGATIVE); *CLARITY,URINE SLIGHTLY CLOUDY (CLEAR); *COLOR,URINE YELLOW (YELLOW); *KETONES,URINE NEGATIVE (NEGATIVE); *UROBILINOGEN,URINE 0.2 E.U./dl (NORMAL); LEUKOCYTE ESTERASE ,URINE 2+ (NEGATIVE); NITRITE, URINE NEGATIVE (NEGATIVE); PH,URINE 7.5 (5.0-8.0); UGLUCOSE NEGATIVE (NEGATIVE)
[2020-07-26 02:39] LABS: *BLOOD, URINE TRACE INTACT (NEGATIVE)
[2020-07-26 04:03] VITALS: BP 147/84
[2020-07-26] MEDS: CEFTRIAXONE 1 G in IV DEXTROSE 5% 50 ML IV SCH (05:10)
[2020-07-26] MEDS: METRONIDAZOLE 500 MG TABLET GT SCH ×3 (05:10→21:00)
[2020-07-26] MEDS: HYDROCODONE/APAP 5-325MG TABLET PO PRN ×2 (05:20→14:47)
--- NOTE | 2020-07-26 06:34 | NUR ---
PT SLEPT INTERMITTENTLY. PT IN NO ACUTE DISTRESS. PRESCRIBED MEDICATION GIVEN AND PT TOLERATED IT WELL. WOUND DRESSING INTACT AND CHANGED. FERNANDO CATHETER INTACT AND DRAINING YELLOW COLORED URINE WITH SEDIMENTS. DRAINAGE CATHETER ON LUNGS DRAINING WELL. FROM 50 CC FROM PREVIOUS SHIFT TO 75CC OUTPUT. CONSTANT SUCTIONING NEEDED. WOUND DRESSING CHANGE AND INTACT. PT ON SINUS RHYTHM. PT NEEDS TO BE REORIENTED AND HAVE EPISODES OF CONFUSION. NORCO GIVEN AT 0520H PRN BEFORE DRESSING CHANGED. ALL NEEDS ARE MET. SAFETY AND COMFORT PROVIDED. PT BLOOD SUGAR WAS 128 AND 126. WILL ENDORSE TO INCOMING NURSE FOR CONTINUITY OF CARE.
[2020-07-26 06:39] LABS: BASOPHILS # (AUTO) 0.1 K/uL (0.0-8.0); BASOPHILS % (AUTO) 0.7 % (0.0-2.0); EOSINOPHILS # (AUTO) 0.3 K/uL (0.0-0.7); EOSINOPHILS % (AUTO) 3.5 % (0.0-7.0); HEMATOCRIT 27.3 % (31.2-41.9); HEMOGLOBIN 8.6 g/dL (10.9-14.3); LYMPHOCYTES % (AUTO) 12.4 % (20.5-51.5); MEAN CORPUSCULAR HEMOGLOBIN 28.2 uug (24.7-32.8); MEAN CORPUSCULAR HGB CONC 32 g/dL (32.3-35.6); MEAN CORPUSCULAR VOLUME 89.2 fL (75.5-95.3); MONOCYTES # (AUTO) 0.6 K/uL (2.0-10.0); MONOCYTES % (AUTO) 7.2 % (0.0-11.0); NEUTROPHILS # (AUTO) 6.4 K/uL (1.8-8.9); NEUTROPHILS % (AUTO) 76.2 % (38.5-71.5); PLATELET COUNT (AUTO) 402 K/uL (179-408); RED BLOOD CELL COUNT(AUTO) 3.06 MIL/uL (3.63-4.92); WHITE BLOOD COUNT (AUTO) 8.4 K/uL (3.8-11.8)
[2020-07-26 06:50] LABS: CREATININE 1.3 mg/dL (0.6-1.3); MAGNESIUM 2.1 mg/dL (1.8-2.4); PHOSPHOROUS 6.1 mg/dL (2.5-4.9); POTASSIUM 4.3 mmol/L (3.5-5.1)
[2020-07-26] MEDS: CHOLECALCIFEROL 1,000 UNIT TABLET GT SCH (08:57)
[2020-07-26] MEDS: ZINC SULFATE 220 MG CAPSULE GT SCH (08:58)
[2020-07-26] MEDS: MULTIVIT, IRON, MIN NO. 8, FA TABLET GT SCH (08:58)
[2020-07-26] MEDS: QUETIAPINE FUMARATE 25 MG TABLET GT SCH ×2 (08:58→16:29)
[2020-07-26] MEDS: MIRALAX 17 GM POWD.PACK GT SCH (08:58)
[2020-07-26] MEDS: ASCORBIC ACID 500 MG TABLET GT SCH (08:58)
[2020-07-26] MEDS: METOPROLOL TARTRATE 50 MG TABLET GT SCH ×2 (09:04→20:22)
[2020-07-26] MEDS: INSULIN GLARGINE,HUM 300 UNITS/3 ML CARTRIDGE SQ SCH ×2 (09:06→21:11)
[2020-07-26] MEDS: ARGININE/GLUTAMINE/CALCIUM BMB 1 EACH POWD.PACK GT SCH (09:09)
[2020-07-26] MEDS: CADEXOMER IODINE 40 GM TUBE TOP SCH (09:45)
[2020-07-26] MEDS: CLOTRIMAZOLE 1% CREAM 30 GM TUBE TOP SCH ×2 (09:46→16:30)
[2020-07-26] MEDS ORDERED: APIXABAN 2.5 MG TABLET PO SCH (11:30)
[2020-07-26 12:00] VITALS: BP 139/84
--- NOTE | 2020-07-26 14:30 | NUR ---
PATIENT FACETIMED WITH SISTER, CLAUDIA. SISTER GIVEN UPDATES ON PATIENT CONDITION. CONSENT FOR PROCEDURE SCHEDULED TOMORROW SIGNED.
[2020-07-26] MEDS: IV D5W 1000ML 1,000 ML IV PRN (14:43)
--- NOTE | 2020-07-26 14:52 | NUR ---
PATIENT APPEARS AGITATED AND MOANING DURING REPOSITIONING WITH FACIAL GRIMACING PRESENT. GIVEN PRN PAIN MEDICATION. WILL CONTINUE TO MONITOR.
[2020-07-26 15:36] LABS: BACTERIA,URINE FEW /HPF (NONE SEEN); SQUAMOUS EPITHELIAL CELL,UR FEW /HPF (NONE SEEN); URINE AMORPHOUS PHOSPHATES FEW /HPF; WBC,URINE 80-100 /HPF (0-3); YEAST,URINE FEW /HPF (NONE SEEN)
[2020-07-26 16:00] VITALS: BP 145/82
[2020-07-26] MEDS: INSULIN REGULAR, HUMAN 300 UNIT/3 ML VIAL SQ PRN ×2 (17:13→23:35)
[2020-07-26 20:06] VITALS: BP 128/70
[2020-07-26] MEDS: GABAPENTIN 300 MG CAPSULE GT SCH (20:22)
[2020-07-26] MEDS: ACETAMINOPHEN 650 MG/20.3 ML LIQUID UDC GT PRN (20:35)
[2020-07-26] MEDS: AZITHROMYCIN IV 250 MG in IV DEXTROSE 5% 250 ML IV SCH (20:44)
[2020-07-27] VITALS (15 sets, daily range): BP systolic 105–149; BP diastolic 68–93
[2020-07-27] MEDS: CEFTRIAXONE 1 G in IV DEXTROSE 5% 50 ML IV SCH (05:35)
[2020-07-27] MEDS: BLOOD SUGAR DIAGNOSTIC 1 EACH STRIP VI SCH ×3 (05:35→17:41)
[2020-07-27] MEDS: METRONIDAZOLE 500 MG TABLET GT SCH ×3 (06:00→21:58)
[2020-07-27 06:29] LABS: BASOPHILS % (AUTO) 0.4 % (0.0-2.0); EOSINOPHILS # (AUTO) 0.2 K/uL (0.0-0.7); EOSINOPHILS % (AUTO) 2.9 % (0.0-7.0); HEMATOCRIT 27.5 % (31.2-41.9); HEMOGLOBIN 8.5 g/dL (10.9-14.3); LYMPHOCYTES # (AUTO) 1.2 K/uL (20.0-40.0); LYMPHOCYTES % (AUTO) 15.5 % (20.5-51.5); MEAN CORPUSCULAR HEMOGLOBIN 27.9 uug (24.7-32.8); MEAN CORPUSCULAR HGB CONC 31 g/dL (32.3-35.6); MEAN CORPUSCULAR VOLUME 90.3 fL (75.5-95.3); MONOCYTES # (AUTO) 0.6 K/uL (2.0-10.0); MONOCYTES % (AUTO) 7.9 % (0.0-11.0); NEUTROPHILS # (AUTO) 5.9 K/uL (1.8-8.9); NEUTROPHILS % (AUTO) 73.3 % (38.5-71.5); PLATELET COUNT (AUTO) 381 K/uL (179-408); RED BLOOD CELL COUNT(AUTO) 3.04 MIL/uL (3.63-4.92)
--- NOTE | 2020-07-27 06:44 | NUR ---
PT SLEPT INTERMITTENTLY. PT IN NO ACUTE DISTRESS. IV INTACT. WOUND DRESSING CHANGED. PRESCRIBED MEDICATION GIVEN AND PT TOLERATED IT WELL. TYLENOL PRN GIVEN AT 2034H .BLOOD SUGAR 88. SAFETY AND COMFORT PROVIDED. WILL ENDORSE TO INCOMING NURSE FOR CONTINUITY OF CARE.
--- NOTE | 2020-07-27 06:49 | NUR ---
OUTPUT OF CATHETER WAS 60CC OUTPUT
[2020-07-27 06:54] LABS: CREATININE 1.2 mg/dL (0.6-1.3); PHOSPHOROUS 3.8 mg/dL (2.5-4.9); POTASSIUM 3.9 mmol/L (3.5-5.1)
[2020-07-27] MEDS ORDERED: LIDOCAINE HCL 1% 20 ML VIAL ONE (07:11)
[2020-07-27] MEDS ORDERED: BUPIVACAINE PF 0.5% 30 ML VIAL ONE (07:12)
[2020-07-27] MEDS ORDERED: POLYMYXIN B SULFATE 500,000 UNITS, BACITRACIN 50,000 UNITS, NORMAL SALINE 20 ML MC ONE ×3 (07:15)
--- NOTE | 2020-07-27 07:30 | NUR ---
Patient was picked up by surgery and is off the floor. Will continue to monitor when back on unit.
[2020-07-27] MEDS ORDERED: MIDAZOLAM HCL 2 MG/2 ML VIAL ONE (07:45)
[2020-07-27] MEDS ORDERED: FENTANYL CITRATE 100 MCG/2 ML AMPUL ONE (07:45)
[2020-07-27] MEDS ORDERED: SEVOFLURANE 250 ML BOTTLE ONE (08:44)
[2020-07-27] MEDS: CHOLECALCIFEROL 1,000 UNIT TABLET GT SCH (09:00)
[2020-07-27] MEDS: ASCORBIC ACID 500 MG TABLET GT SCH (09:00)
[2020-07-27] MEDS: MULTIVIT, IRON, MIN NO. 8, FA TABLET GT SCH (09:00)
[2020-07-27] MEDS: METOPROLOL TARTRATE 50 MG TABLET GT SCH ×2 (09:00→21:56)
[2020-07-27] MEDS: CADEXOMER IODINE 40 GM TUBE TOP SCH (09:00)
[2020-07-27] MEDS: QUETIAPINE FUMARATE 25 MG TABLET GT SCH ×2 (09:00→17:45)
[2020-07-27] MEDS: CLOTRIMAZOLE 1% CREAM 30 GM TUBE TOP SCH ×2 (09:00→17:46)
[2020-07-27] MEDS: ARGININE/GLUTAMINE/CALCIUM BMB 1 EACH POWD.PACK GT SCH (09:00)
[2020-07-27] MEDS: MIRALAX 17 GM POWD.PACK GT SCH (09:00)
[2020-07-27] MEDS: INSULIN GLARGINE,HUM 300 UNITS/3 ML CARTRIDGE SQ SCH ×2 (09:00→21:00)
[2020-07-27] MEDS: ZINC SULFATE 220 MG CAPSULE GT SCH (09:00)
[2020-07-27] MEDS ORDERED: VANCOMYCIN 1000 MG VIAL ONE (09:10)
[2020-07-27] MEDS ORDERED: SEVOFLURANE 250 ML BOTTLE IH ONE (09:59)
[2020-07-27] MEDS ORDERED: IV NORMAL SALINE 1000 ML BAG IV ONE ×2 (09:59)
[2020-07-27] MEDS ORDERED: EPHEDRINE SULFATE 50 MG/ML AMPUL IM ONE (09:59)
[2020-07-27] MEDS ORDERED: VECURONIUM BROMIDE 10 MG VIAL IV ONE (09:59)
[2020-07-27] MEDS ORDERED: PHENYLEPHRINE 10 MG/1 ML VIAL IV ONE (09:59)
--- NOTE | 2020-07-27 10:15 | NUR ---
Patient sent to the CCU because patient had to be put on a vent. Report given to me by the charge nurse Leeanna. Will call CCU to give report.
--- NOTE | 2020-07-27 10:36 | NUR ---
Gave report to Sabine in CCU. Also tried calling patient's POA on file Josephine Beckham but the # was not working.
--- NOTE | 2020-07-27 11:20 | NUR ---
Patient arrived from recovery with recovery nurses at the bedside. Report received of procedure that was done and informed me that Dr. Forrest called the sister, vent settings AC 16 Tv 400 at 60%. patient was saturating 100. RT titrated down to 50%.
--- NOTE | 2020-07-27 11:40 | NUR ---
Silvia in the unit to see patient. Informed me that she will follow up because she consulted Dr. Antunez due to decreasing hemoglobin. Dr. Valladares will see patient today to titrate vent off.
[2020-07-27 17:59] LABS: ABG BASE EXCESS 1.5 mmol/L; ABG HCO3 26.1 mmol/L; ABG PCO2 41.1 mmHg (35.0-45.0); ABG PH 7.421 (7.350-7.450); ABG SITE LEFT RADIAL; ABG TOTAL HEMOGLOBIN 8.5 G/dL (12.0-16.0); COHb 1.1 % (0.5-1.5); CPAP,BG 6 cmH20; MetHb 0.4 % (0.0-1.5); O2Hb 97.6 % (94.0-97.0); VENT MODE CPAP
--- NOTE | 2020-07-27 19:10 | NUR ---
dr chapman responded back to day shift regarding t - piece order
--- NOTE | 2020-07-27 19:15 | NUR ---
PATIENT IS AWAKE ABLE TO COMMUNICATE WITH SIMPLE NOD , , ON AC 16 , TV 400 45 FIO2 % , FERNANDO AND PICC LINE INTACT , WOUND VAC ON THE LEFT FOOR INTACT AT 125 MMHG , FEEDING AT 30 ML , PEG , ST AT 122 , NO FEVER , DRAINING TUBE INTACT
--- NOTE | 2020-07-27 19:40 | NUR ---
PATIENT RADHA SWITCHED TO T - PIECE AT 45 % , PER ORDER OF DR BAUTISTA SATURATING 99 %
--- NOTE | 2020-07-27 21:00 | NUR ---
lantus not given , md aware because of low blood sugar, feeding rate was increased
[2020-07-27] MEDS: GABAPENTIN 300 MG CAPSULE GT SCH (21:57)
[2020-07-28] VITALS (16 sets, daily range): BP systolic 98–155; BP diastolic 60–78
[2020-07-28] MEDS: BLOOD SUGAR DIAGNOSTIC 1 EACH STRIP VI SCH ×5 (00:33→23:51)
[2020-07-28] MEDS: INSULIN REGULAR, HUMAN 300 UNIT/3 ML VIAL SQ PRN ×2 (00:35→06:41)
--- NOTE | 2020-07-28 01:57 | NUR ---
PATIENT TAKEN OFF VENT APPROX. 20:15, PT PLACED ON P/MIST @ 45% VIA T/TUBE, SUCTION PRN, STABLE, RESTING , NO SOB NOTED.Maria Elena HARPER WASTEWATER ANALYST Addendum: 07/28/20 at 0158 by BAKARI HARPER RT Amended: Links added.
[2020-07-28] MEDS: ACETAMINOPHEN 650 MG/20.3 ML LIQUID UDC GT PRN (03:11)
[2020-07-28 05:32] LABS: BASOPHILS % (AUTO) 0.4 % (0.0-2.0); EOSINOPHILS # (AUTO) 0.1 K/uL (0.0-0.7); EOSINOPHILS % (AUTO) 1.5 % (0.0-7.0); HEMATOCRIT 23.7 % (31.2-41.9); HEMOGLOBIN 7.5 g/dL (10.9-14.3); LYMPHOCYTES # (AUTO) 1.1 K/uL (20.0-40.0); LYMPHOCYTES % (AUTO) 12.9 % (20.5-51.5); MEAN CORPUSCULAR HEMOGLOBIN 28.3 uug (24.7-32.8); MEAN CORPUSCULAR HGB CONC 32 g/dL (32.3-35.6); MEAN CORPUSCULAR VOLUME 89.8 fL (75.5-95.3); MONOCYTES # (AUTO) 0.6 K/uL (2.0-10.0); MONOCYTES % (AUTO) 6.8 % (0.0-11.0); NEUTROPHILS # (AUTO) 6.5 K/uL (1.8-8.9); NEUTROPHILS % (AUTO) 78.4 % (38.5-71.5); PLATELET COUNT (AUTO) 367 K/uL (179-408); RED BLOOD CELL COUNT(AUTO) 2.64 MIL/uL (3.63-4.92); WHITE BLOOD COUNT (AUTO) 8.3 K/uL (3.8-11.8)
[2020-07-28 05:46] LABS: CREATININE 1.3 mg/dL (0.6-1.3); PHOSPHOROUS 3.3 mg/dL (2.5-4.9); POTASSIUM 3.6 mmol/L (3.5-5.1)
--- NOTE | 2020-07-28 06:00 | NUR ---
, t piece at 45 % , feeding held as ordered , no residual noted
[2020-07-28] MEDS: METRONIDAZOLE 500 MG TABLET GT SCH ×3 (06:38→21:40)
[2020-07-28] MEDS: ASCORBIC ACID 500 MG TABLET GT SCH (08:52)
[2020-07-28] MEDS: ZINC SULFATE 220 MG CAPSULE GT SCH (08:52)
[2020-07-28] MEDS: CHOLECALCIFEROL 1,000 UNIT TABLET GT SCH (08:52)
[2020-07-28] MEDS: METOPROLOL TARTRATE 50 MG TABLET GT SCH ×2 (08:53→21:40)
[2020-07-28] MEDS: QUETIAPINE FUMARATE 25 MG TABLET GT SCH ×2 (08:53→17:42)
[2020-07-28] MEDS: MIRALAX 17 GM POWD.PACK GT SCH ×2 (08:54→09:00)
[2020-07-28] MEDS: MULTIVIT, IRON, MIN NO. 8, FA TABLET GT SCH (09:01)
[2020-07-28] MEDS: ARGININE/GLUTAMINE/CALCIUM BMB 1 EACH POWD.PACK GT SCH (09:02)
[2020-07-28] MEDS: CADEXOMER IODINE 40 GM TUBE TOP SCH (09:04)
[2020-07-28] MEDS ORDERED: POTASSIUM CHLORIDE 20 MEQ POWDER PACKET GT ONE (09:15)
[2020-07-28 09:18] LABS: ABG BASE EXCESS -0.6 mmol/L; ABG HCO3 23.9 mmol/L; ABG PCO2 38.4 mmHg (35.0-45.0); ABG PH 7.412 (7.350-7.450); ABG PO2 79.5 mmHg (75.0-100.0); ABG SITE RIGHT RADIAL; ABG TOTAL HEMOGLOBIN 8.3 G/dL (12.0-16.0); COHb 1.2 % (0.5-1.5); MetHb 0.6 % (0.0-1.5); O2Hb 94.6 % (94.0-97.0)
[2020-07-28] MEDS: INSULIN GLARGINE,HUM 300 UNITS/3 ML CARTRIDGE SQ SCH ×2 (10:35→21:00)
--- NOTE | 2020-07-28 14:00 | NUR ---
olga lidia at bedside will downgrade patient to tele status.
--- NOTE | 2020-07-28 15:30 | NUR ---
debridement done at bedside for sacral wound.
[2020-07-28] MEDS ORDERED: LIDOCAINE 1%-EPI 1:200,000 MPF 30 ML VIAL IJ ONE (16:18)
--- NOTE | 2020-07-28 18:00 | NUR ---
patient having multiple loose stools. placed flexiseal tube. and collected stool for cdiff and stool ob.
--- NOTE | 2020-07-28 19:45 | NUR ---
Received report from MAYURI Regalado from ICU. Patient wheeled to the floor via bed with 3 people assist including the RT at the bedside.
--- NOTE | 2020-07-28 19:45 | NUR ---
report given to santhosh MESSINA. patient moved to tele floor room 312.
--- NOTE | 2020-07-28 20:00 | NUR ---
Awake, alert and able to make needs known through body language and facial expression. Turned and repositioned for comfort. GT flushed with 100 cc of water to keep it patent. Drainage catheter on right back, rectal tube, Bell catheter are all intact and patent with some drainage noted. Good ramsey care rendered. Suctioned PRN with moderate amount of white loose foamy secretion orally and through trach, tolerated well. No s/s of respiratory distress noted.
[2020-07-28 21:05] LABS: *OCCULT BLOOD STOOL NEGATIVE (NEGATIVE)
[2020-07-28] MEDS: GABAPENTIN 300 MG CAPSULE GT SCH (21:41)
--- NOTE | 2020-07-28 21:50 | NUR ---
BS 88 mg/dl Lantus 50 units SQ not given at this time.
[2020-07-29 00:12] VITALS: BP 122/66
[2020-07-29 04:09] VITALS: BP 146/78
[2020-07-29] MEDS: BLOOD SUGAR DIAGNOSTIC 1 EACH STRIP VI SCH ×4 (06:01→23:47)
[2020-07-29] MEDS: METRONIDAZOLE 500 MG TABLET GT SCH ×3 (06:03→21:51)
[2020-07-29] MEDS: INSULIN REGULAR, HUMAN 300 UNIT/3 ML VIAL SQ PRN ×3 (06:05→23:49)
--- NOTE | 2020-07-29 06:39 | NUR ---
Shift End Report: No significant event reported all night. Frequent suctioning rendered orally and trach, tolerated well. Remain afebrile. Tolerated GT feeding well. no gastric residual noted. No s/s of aspiration. Continue care as planned.
[2020-07-29 07:33] LABS: BASOPHILS % (AUTO) 0.5 % (0.0-2.0); EOSINOPHILS # (AUTO) 0.1 K/uL (0.0-0.7); EOSINOPHILS % (AUTO) 1.4 % (0.0-7.0); HEMATOCRIT 26.7 % (31.2-41.9); HEMOGLOBIN 8.3 g/dL (10.9-14.3); LYMPHOCYTES % (AUTO) 11.6 % (20.5-51.5); MEAN CORPUSCULAR HEMOGLOBIN 28.1 uug (24.7-32.8); MEAN CORPUSCULAR HGB CONC 31 g/dL (32.3-35.6); MEAN CORPUSCULAR VOLUME 90.2 fL (75.5-95.3); MONOCYTES # (AUTO) 0.4 K/uL (2.0-10.0); MONOCYTES % (AUTO) 5.1 % (0.0-11.0); NEUTROPHILS # (AUTO) 6.9 K/uL (1.8-8.9); NEUTROPHILS % (AUTO) 81.4 % (38.5-71.5); PLATELET COUNT (AUTO) 406 K/uL (179-408); RED BLOOD CELL COUNT(AUTO) 2.96 MIL/uL (3.63-4.92); WHITE BLOOD COUNT (AUTO) 8.5 K/uL (3.8-11.8)
[2020-07-29 07:48] LABS: CREATININE 1.2 mg/dL (0.6-1.3); MAGNESIUM 1.9 mg/dL (1.8-2.4); PHOSPHOROUS 3.9 mg/dL (2.5-4.9); POTASSIUM 3.9 mmol/L (3.5-5.1)
[2020-07-29] MEDS: ZINC SULFATE 220 MG CAPSULE GT SCH (08:58)
[2020-07-29] MEDS: CHOLECALCIFEROL 1,000 UNIT TABLET GT SCH (08:58)
[2020-07-29] MEDS: ASCORBIC ACID 500 MG TABLET GT SCH (08:58)
[2020-07-29] MEDS: MULTIVIT, IRON, MIN NO. 8, FA TABLET GT SCH (08:58)
[2020-07-29] MEDS: QUETIAPINE FUMARATE 25 MG TABLET GT SCH ×2 (08:58→17:22)
[2020-07-29] MEDS: METOPROLOL TARTRATE 50 MG TABLET GT SCH ×2 (08:59→20:32)
[2020-07-29] MEDS: CADEXOMER IODINE 40 GM TUBE TOP SCH (09:00)
[2020-07-29] MEDS: ARGININE/GLUTAMINE/CALCIUM BMB 1 EACH POWD.PACK GT SCH (09:00)
[2020-07-29] MEDS: INSULIN GLARGINE,HUM 300 UNITS/3 ML CARTRIDGE SQ SCH ×2 (09:12→20:38)
[2020-07-29 11:48] VITALS: BP 120/78
--- NOTE | 2020-07-29 12:00 | NUR ---
SEEN BY DR BAUTISTA FOR PULMONARY FOLLOW-UP, NO NEW ORDERS. SEE NOTES
[2020-07-29] MEDS: GLUCERNA 1.2 1000ML LIQUID GT PRN (12:11)
[2020-07-29 16:00] VITALS: BP 100/65
--- NOTE | 2020-07-29 16:54 | NUR ---
REQUIRES FREQUENT SUCTIONING WHITE THICK MUCUS SECRETION NOTED. ORAL SUCTIONING DONE. SACRAL WOUND REMAINS CLEAN WITH MINIMAL SEROUS DRAINAGE. KIDNEY DRAIN RIGHT POSTERIOR BACK DRAINING MINIMAL AMOUNT OF SEROUS DRAINAGE. CLOSELY MONITORED. PATIENT TOLERATING FEEDING WELL
[2020-07-29 20:00] VITALS: BP 129/69
[2020-07-29] MEDS: GABAPENTIN 300 MG CAPSULE GT SCH (20:27)
[2020-07-29] MEDS: MORPHINE SULFATE 2 MG/1 ML DISP.SYRIN IV PRN (22:00)
[2020-07-30 00:09] VITALS: BP 111/75
[2020-07-30] MEDS: METRONIDAZOLE 500 MG TABLET GT SCH ×3 (05:21→21:03)
[2020-07-30] MEDS: BLOOD SUGAR DIAGNOSTIC 1 EACH STRIP VI SCH ×4 (05:32→23:52)
[2020-07-30] MEDS: INSULIN REGULAR, HUMAN 300 UNIT/3 ML VIAL SQ PRN ×3 (05:33→23:56)
[2020-07-30 06:07] VITALS: BP 116/69
--- NOTE | 2020-07-30 06:29 | NUR ---
Shift End Report: Vs stable. Medicated once for pain with relief. No further complaint presented. Frequent oral and trach suctioning with moderate amount of loose white secretion, tolerated well. More alert and cooperative, able to make needs known thru facial and writing. Able to suction self with yankeur. Released Bilateral soft wrist restraint with closed supervision. No agitation/restlessness presented. Good trach and oral care rendered. Rectal tube, Drainage catheter, Bell catheter, and GT feeding all intact and patent. NO significant event reported all night.
[2020-07-30 07:04] LABS: BASOPHILS % (AUTO) 0.4 % (0.0-2.0); EOSINOPHILS # (AUTO) 0.1 K/uL (0.0-0.7); EOSINOPHILS % (AUTO) 1.3 % (0.0-7.0); HEMATOCRIT 25.8 % (31.2-41.9); HEMOGLOBIN 8.2 g/dL (10.9-14.3); LYMPHOCYTES % (AUTO) 9.7 % (20.5-51.5); MEAN CORPUSCULAR HEMOGLOBIN 28.7 uug (24.7-32.8); MEAN CORPUSCULAR HGB CONC 32 g/dL (32.3-35.6); MEAN CORPUSCULAR VOLUME 90.4 fL (75.5-95.3); MONOCYTES # (AUTO) 0.4 K/uL (2.0-10.0); MONOCYTES % (AUTO) 4.2 % (0.0-11.0); NEUTROPHILS # (AUTO) 8.4 K/uL (1.8-8.9); NEUTROPHILS % (AUTO) 84.4 % (38.5-71.5); PLATELET COUNT (AUTO) 463 K/uL (179-408); RED BLOOD CELL COUNT(AUTO) 2.86 MIL/uL (3.63-4.92)
[2020-07-30 07:32] LABS: CREATININE 1.2 mg/dL (0.6-1.3); MAGNESIUM 1.9 mg/dL (1.8-2.4); PHOSPHOROUS 3.5 mg/dL (2.5-4.9); POTASSIUM 4.1 mmol/L (3.5-5.1)
[2020-07-30] MEDS: MULTIVIT, IRON, MIN NO. 8, FA TABLET GT SCH (08:49)
[2020-07-30] MEDS: METOPROLOL TARTRATE 50 MG TABLET GT SCH ×2 (08:49→20:40)
[2020-07-30] MEDS: ZINC SULFATE 220 MG CAPSULE GT SCH (08:49)
[2020-07-30] MEDS: CHOLECALCIFEROL 1,000 UNIT TABLET GT SCH (08:49)
[2020-07-30] MEDS: ASCORBIC ACID 500 MG TABLET GT SCH (08:49)
[2020-07-30] MEDS: QUETIAPINE FUMARATE 25 MG TABLET GT SCH ×2 (08:49→16:50)
[2020-07-30] MEDS: ARGININE/GLUTAMINE/CALCIUM BMB 1 EACH POWD.PACK GT SCH (08:54)
[2020-07-30] MEDS: INSULIN GLARGINE,HUM 300 UNITS/3 ML CARTRIDGE SQ SCH ×2 (09:00→20:44)
--- NOTE | 2020-07-30 09:00 | NUR ---
SEEN BY DR ESCALERA - ONCOLOGIST. SEE MD NOTES FOR NEW ORDERS.
[2020-07-30] MEDS: MUPIROCIN 2% OINT 22 GM TUBE TP SCH (09:45)
[2020-07-30] MEDS: CADEXOMER IODINE 40 GM TUBE TOP SCH (09:45)
--- NOTE | 2020-07-30 10:30 | NUR ---
SEEN BY BUSTER, HOSEMAN - SURGERY. SEE HOSEMAN NOTES FOR NEW ORDERS.
[2020-07-30 12:52] VITALS: BP 125/60
[2020-07-30] MEDS: EPOETIN ALFA-EPBX 10,000 UNIT/ML VIAL SQ SCH (13:19)
--- NOTE | 2020-07-30 15:02 | NUR ---
PICKED UP BY DIRECTOR DIGITAL ADVERTISING FOR ABDOMEN CT.
--- NOTE | 2020-07-30 15:20 | NUR ---
RETURNED FROM CT. NO S/S OF DISTRESS NOTED AT THIS TIME.
[2020-07-30 16:00] VITALS: BP 123/87
--- NOTE | 2020-07-30 18:19 | NUR ---
VSS. TRACH DRESSING CHANGED. SUCTIONING DONE NEEDED THROUGHOUT SHIFT. MEDICATIONS GIVEN ORDERED. WOUND CARE ORDERS DONE PER MD INSTRUCTIONS. SAFETY PRECAUTIONS IN PLACE. ALL NEEDS MET AT THIS TIME.
[2020-07-30 20:21] VITALS: BP 130/84
[2020-07-30] MEDS: GABAPENTIN 300 MG CAPSULE GT SCH (20:39)
[2020-07-30] MEDS: ACETAMINOPHEN 650 MG/20.3 ML LIQUID UDC GT PRN (20:41)
--- NOTE | 2020-07-30 21:11 | NUR ---
Pt received in bed, resting. Pt does not appear to be in any distress at this time. RT was called for trach suctioning. SR on monitor. Pt had temp of 100.9 and was given Tylenol. Bed is locked and in lowest position, alarm on. All needs met at this time. No other issues or concerns at this time.
--- NOTE | 2020-07-31 00:30 | NUR ---
patient had a temp of 99.7. Cooling measures were done, temp reduced to 98.6.
[2020-07-31 01:07] VITALS: BP 118/76
[2020-07-31] MEDS: GLUCERNA 1.2 1000ML LIQUID GT PRN ×2 (02:16→22:04)
--- NOTE | 2020-07-31 05:22 | NUR ---
Dr. Pollard notifed that kidney drain is out of place.
[2020-07-31] MEDS: ACETAMINOPHEN 650 MG/20.3 ML LIQUID UDC GT PRN ×2 (05:25→22:51)
[2020-07-31 05:36] VITALS: BP 149/72
[2020-07-31] MEDS: BLOOD SUGAR DIAGNOSTIC 1 EACH STRIP VI SCH ×3 (05:38→17:35)
--- NOTE | 2020-07-31 06:10 | NUR ---
Temp went up to 101.7. Was given 650mg of Tylenol and temp went down to 97.3
[2020-07-31 07:29] LABS: CREATININE 1.3 mg/dL (0.6-1.3); MAGNESIUM 1.8 mg/dL (1.8-2.4); PHOSPHOROUS 3.2 mg/dL (2.5-4.9); POTASSIUM 3.9 mmol/L (3.5-5.1)
--- NOTE | 2020-07-31 08:30 | NUR ---
Received in bed awake and responsive. Trach is intact and patent. Breathing even and non labored. No sob noted. ON 3 lpm via trach mask saturation noted 100%. Afebrile, temp 98.3. Abdomen soft and non distended. No nausea or vomiting. Kept comfortable. Call light within reach. Will continue to monitor.
[2020-07-31] MEDS: CHOLECALCIFEROL 1,000 UNIT TABLET GT SCH (08:38)
[2020-07-31] MEDS: METOPROLOL TARTRATE 50 MG TABLET GT SCH ×2 (08:38→21:44)
[2020-07-31] MEDS: ZINC SULFATE 220 MG CAPSULE GT SCH (08:38)
[2020-07-31] MEDS: MULTIVIT, IRON, MIN NO. 8, FA TABLET GT SCH (08:38)
[2020-07-31] MEDS: QUETIAPINE FUMARATE 25 MG TABLET GT SCH ×2 (08:38→17:29)
[2020-07-31] MEDS: ASCORBIC ACID 500 MG TABLET GT SCH (08:38)
[2020-07-31 08:46] LABS: BASOPHILS # (AUTO) 0.1 K/uL (0.0-8.0); BASOPHILS % (AUTO) 0.5 % (0.0-2.0); EOSINOPHILS # (AUTO) 0.1 K/uL (0.0-0.7); EOSINOPHILS % (AUTO) 0.7 % (0.0-7.0); HEMATOCRIT 25.9 % (31.2-41.9); HEMOGLOBIN 8.2 g/dL (10.9-14.3); LYMPHOCYTES % (AUTO) 9.4 % (20.5-51.5); MEAN CORPUSCULAR HEMOGLOBIN 28.3 uug (24.7-32.8); MEAN CORPUSCULAR HGB CONC 32 g/dL (32.3-35.6); MEAN CORPUSCULAR VOLUME 89.6 fL (75.5-95.3); MONOCYTES # (AUTO) 0.6 K/uL (2.0-10.0); MONOCYTES % (AUTO) 5.5 % (0.0-11.0); NEUTROPHILS # (AUTO) 9.2 K/uL (1.8-8.9); NEUTROPHILS % (AUTO) 83.9 % (38.5-71.5); PLATELET COUNT (AUTO) 423 K/uL (179-408); RED BLOOD CELL COUNT(AUTO) 2.89 MIL/uL (3.63-4.92); WHITE BLOOD COUNT (AUTO) 10.9 K/uL (3.8-11.8)
[2020-07-31] MEDS: INSULIN GLARGINE,HUM 300 UNITS/3 ML CARTRIDGE SQ SCH ×2 (09:06→21:51)
[2020-07-31] MEDS: ARGININE/GLUTAMINE/CALCIUM BMB 1 EACH POWD.PACK GT SCH (09:11)
--- NOTE | 2020-07-31 10:57 | NUR ---
Spoke to Anthony at xray regarding percutaneous drain catheter. She said she will IR if they are available this weekend to do it and will call me back. Patient is awake and made aware.
[2020-07-31 11:38] VITALS: BP 135/81
--- NOTE | 2020-07-31 11:41 | NUR ---
Left voicemail at Dr. Petra Lamar's office to call us back regarding patient's wound vac.
--- NOTE | 2020-07-31 11:50 | NUR ---
Received call from indio at [facility]. Dr. Warner is IR on-call and will review patient's chart and will let her know when he's able to do the procedure. Waiting for call back. Patient made aware.
[2020-07-31] MEDS: INSULIN REGULAR, HUMAN 300 UNIT/3 ML VIAL SQ PRN ×2 (12:03→17:39)
[2020-07-31] MEDS: CADEXOMER IODINE 40 GM TUBE TOP SCH (15:28)
[2020-07-31 16:00] VITALS: BP 136/78
--- NOTE | 2020-07-31 19:30 | NUR ---
Patient alert and responsive. Trach is intact and patent. No respiratory distress noted. No facial grimacing. Due meds given and tolerated. Gt feeding tolerated no nausea or vomiting noted. Needs attended.
[2020-07-31 20:52] VITALS: BP 137/85
[2020-07-31] MEDS: GABAPENTIN 300 MG CAPSULE GT SCH (21:45)
[2020-08-01] MEDS: BLOOD SUGAR DIAGNOSTIC 1 EACH STRIP VI SCH ×5 (00:17→23:33)
[2020-08-01 00:22] VITALS: BP 136/72
[2020-08-01 04:25] VITALS: BP 139/74
[2020-08-01] MEDS: INSULIN REGULAR, HUMAN 300 UNIT/3 ML VIAL SQ PRN ×2 (06:02→17:23)
--- NOTE | 2020-08-01 06:16 | NUR ---
Patient slept intermittently . No acute distress noted through out the shift.TRach in place. Suctioned PRN saturating well at 99 % .Gtube intact ,site clean and dry. 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 Continue safety measures.HOB remained elevated.Aspiration precaution observed at all times.All needs anticipated and met accordingly.
[2020-08-01 06:48] LABS: BASOPHILS % (AUTO) 0.4 % (0.0-2.0); EOSINOPHILS # (AUTO) 0.1 K/uL (0.0-0.7); EOSINOPHILS % (AUTO) 1.3 % (0.0-7.0); HEMATOCRIT 26.3 % (31.2-41.9); LYMPHOCYTES # (AUTO) 1.1 K/uL (20.0-40.0); MEAN CORPUSCULAR HEMOGLOBIN 27.7 uug (24.7-32.8); MEAN CORPUSCULAR HGB CONC 31 g/dL (32.3-35.6); MEAN CORPUSCULAR VOLUME 90.8 fL (75.5-95.3); MONOCYTES # (AUTO) 0.6 K/uL (2.0-10.0); MONOCYTES % (AUTO) 5.2 % (0.0-11.0); NEUTROPHILS # (AUTO) 9.5 K/uL (1.8-8.9); NEUTROPHILS % (AUTO) 83.1 % (38.5-71.5); PLATELET COUNT (AUTO) 424 K/uL (179-408); RED BLOOD CELL COUNT(AUTO) 2.89 MIL/uL (3.63-4.92); WHITE BLOOD COUNT (AUTO) 11.5 K/uL (3.8-11.8)
[2020-08-01 06:59] LABS: CREATININE 1.2 mg/dL (0.6-1.3); PHOSPHOROUS 3.7 mg/dL (2.5-4.9); POTASSIUM 4.4 mmol/L (3.5-5.1)
--- NOTE | 2020-08-01 07:30 | NUR ---
Received patient in bed awake and responsive to verbal and tactile stimuli. Trach is intact and patent. Suctioned prn. No respiratory distress noted. FC intact and draining yellow urine. No hematuria noted. Gt intact and patent. No nausea or vomiting noted. IV intact and patent. No s/sx of infection noted. Kept comfortable. Call light within reach. Will continue to monitor.
[2020-08-01] MEDS: ARGININE/GLUTAMINE/CALCIUM BMB 1 EACH POWD.PACK GT SCH (08:29)
[2020-08-01] MEDS: METOPROLOL TARTRATE 50 MG TABLET GT SCH ×2 (08:30→20:20)
[2020-08-01] MEDS: MULTIVIT, IRON, MIN NO. 8, FA TABLET GT SCH (08:30)
[2020-08-01] MEDS: QUETIAPINE FUMARATE 25 MG TABLET GT SCH ×2 (08:30→17:23)
[2020-08-01] MEDS: CHOLECALCIFEROL 1,000 UNIT TABLET GT SCH (08:30)
[2020-08-01] MEDS: ZINC SULFATE 220 MG CAPSULE GT SCH (08:30)
[2020-08-01] MEDS: ASCORBIC ACID 500 MG TABLET GT SCH (08:40)
[2020-08-01] MEDS: INSULIN GLARGINE,HUM 300 UNITS/3 ML CARTRIDGE SQ SCH ×2 (08:48→21:22)
[2020-08-01] MEDS: CADEXOMER IODINE 40 GM TUBE TOP SCH (08:49)
[2020-08-01 11:30] VITALS: BP 129/67
[2020-08-01 11:34] VITALS: BP 129/67
--- NOTE | 2020-08-01 13:00 | NUR ---
Spoke with Dr. Warner said he's going to do CT Guided Percutaneous Drainage for Perirenal abscess tomorrow and orders for patient to be npo after midnight and coag labs today, noted and carried out. Called sister Josephine and received consent for procedure verified by 2 Rns. Patient also made aware. Will endorse accordingly.
--- NOTE | 2020-08-01 13:00 | NUR ---
Patient is alert and responsive. Trach is intact and patent. No respiratory distress noted. Suctioned prn and tolerated. Patient started on glucerna 1.2 80cc/hr at 10am. Patient tolerated new feeding rate. No nausea or vomiting noted. Abdomen soft and not distended. No gastric residual noted. No facial grimacing noted. Patient is kept comfortable. Safety measures in place. Will continue to monitor.
[2020-08-01] MEDS: CEFTRIAXONE 1 G in IV DEXTROSE 5% 50 ML IV SCH (13:09)
[2020-08-01 16:00] VITALS: BP 131/67
[2020-08-01] MEDS: ACETAMINOPHEN 650 MG/20.3 ML LIQUID UDC GT PRN ×2 (17:23→23:42)
--- NOTE | 2020-08-01 18:58 | NUR ---
Patient alert and responsive. No facial grimacing noted. Trach is intact and patent. No distress. Suctioned prn and tolerated. Patient tolerated new feeding rate of 80cc/hr. No nausea or vomiting noted. HOb elevated for aspiration precautions. Bed kept low. Kept comfortable. Call light within reach.
--- NOTE | 2020-08-01 19:30 | NUR ---
RECEIVED PT AWAKE, ALERT AND ORIENTEDX3. PT IN NO ACUTE DISTRESS. PT IV INTACT. PT FERNANDO CATHETER AND RECTAL TUBE INTACT AND DRAINING WELL. WOUND VAC ON RIGHT FOOT INTACT. PT ON FIRST STEP MATTRESS. PT ON TRACH. PT ON GTUBE. SAFETY AND COMFORT PROVIDED. WILL CONTINUE TO MONITOR.
[2020-08-01] MEDS: GLUCERNA 1.2 1000ML LIQUID GT PRN (19:59)
[2020-08-01] MEDS: GABAPENTIN 300 MG CAPSULE GT SCH (20:00)
--- NOTE | 2020-08-01 21:00 | NUR ---
PT GIVEN COOLING MEASURES FOR HER 99.7 TEMP.
[2020-08-01 21:28] VITALS: BP 117/79
--- NOTE | 2020-08-01 21:49 | NUR ---
NOTIFY MECCA DIAZ CARPENTER REPAIRER REGARDING PT BLOOD SUGAR IS 125 , THERE IS A SCHEDULED DOSE OF 50 U LANTUS TO BE GIVEN , AND PT WILL BE NPO AFTER MIDNIGHT. DR ORDERED TO GIVE THE WHOLE 50 U OF LANTUS AND GIVE D5NS @ 50 CC/HR AFTER MIDNIGHT.
[2020-08-02 01:09] VITALS: BP 124/78
[2020-08-02] MEDS: BLOOD SUGAR DIAGNOSTIC 1 EACH STRIP VI SCH ×3 (05:56→18:18)
--- NOTE | 2020-08-02 06:00 | NUR ---
right flank catheter drainage output 10 ml
[2020-08-02 06:09] VITALS: BP 131/113
--- NOTE | 2020-08-02 06:13 | NUR ---
PT SLEPT INTERMITTENTLY. PT IN NO ACUTE DISTRESS. PRESCRIBED MEDICATION GIVEN AND PT TOLERATED IT WELL. . PT TURNED AND REPOSITIONED. PT ON NPO. PT RECENT TEMPERATURE IS 99.5 FROM 99.7. COOLING MEASURES AND TYLENOL PRN GIVEN. PT ON TRACH. PT FERNANDO INTACT, PT RECTAL TUBE INTACT. PT WOUND VAC ON RIGHT FOOT INTACT. PT ON RIGHT FLANK INTACT. SAFETY AND COMFORT PROVIDED. ALL NEEDS ARE MET. WILL ENDORSE TO INCOMING NURSE FOR CONTINUITY OF CARE.
--- NOTE | 2020-08-02 06:14 | NUR ---
BLOOD SUGAR WAS 128. PT IN NO ACUTE DISTRESS. CONSTANT SUCTIONING NEEDED.
[2020-08-02 07:18] LABS: BASOPHILS % (AUTO) 0.2 % (0.0-2.0); EOSINOPHILS # (AUTO) 0.1 K/uL (0.0-0.7); EOSINOPHILS % (AUTO) 0.9 % (0.0-7.0); HEMATOCRIT 25.3 % (31.2-41.9); HEMOGLOBIN 7.7 g/dL (10.9-14.3); LYMPHOCYTES # (AUTO) 1.1 K/uL (20.0-40.0); MEAN CORPUSCULAR HEMOGLOBIN 27.7 uug (24.7-32.8); MEAN CORPUSCULAR HGB CONC 31 g/dL (32.3-35.6); MEAN CORPUSCULAR VOLUME 90.5 fL (75.5-95.3); MONOCYTES # (AUTO) 0.9 K/uL (2.0-10.0); MONOCYTES % (AUTO) 7.4 % (0.0-11.0); NEUTROPHILS # (AUTO) 9.8 K/uL (1.8-8.9); NEUTROPHILS % (AUTO) 82.5 % (38.5-71.5); PLATELET COUNT (AUTO) 390 K/uL (179-408); RED BLOOD CELL COUNT(AUTO) 2.79 MIL/uL (3.63-4.92); WHITE BLOOD COUNT (AUTO) 11.8 K/uL (3.8-11.8)
[2020-08-02 07:31] LABS: CREATININE 1.2 mg/dL (0.6-1.3); MAGNESIUM 1.8 mg/dL (1.8-2.4); POTASSIUM 4.2 mmol/L (3.5-5.1)
--- NOTE | 2020-08-02 07:45 | NUR ---
Received pt in bed. In no acute distress, iv site intact and patent, on 3L O2 satting well. Responds to name and tactile stimuli call light in reach and saftey measures in place. will continue to monitor
[2020-08-02] MEDS: ARGININE/GLUTAMINE/CALCIUM BMB 1 EACH POWD.PACK GT SCH (09:00)
[2020-08-02] MEDS: METOPROLOL TARTRATE 50 MG TABLET GT SCH ×2 (09:18→20:14)
[2020-08-02] MEDS: FLUCONAZOLE 100 MG TABLET GT SCH (09:18)
[2020-08-02] MEDS: ASCORBIC ACID 500 MG TABLET GT SCH (09:18)
[2020-08-02] MEDS: QUETIAPINE FUMARATE 25 MG TABLET GT SCH ×2 (09:18→17:22)
[2020-08-02] MEDS: MULTIVIT, IRON, MIN NO. 8, FA TABLET GT SCH (09:18)
[2020-08-02] MEDS: CHOLECALCIFEROL 1,000 UNIT TABLET GT SCH (09:18)
[2020-08-02] MEDS: ZINC SULFATE 220 MG CAPSULE GT SCH (09:18)
[2020-08-02] MEDS: INSULIN GLARGINE,HUM 300 UNITS/3 ML CARTRIDGE SQ SCH ×2 (09:49→22:17)
[2020-08-02] MEDS ORDERED: FENTANYL CITRATE 100 MCG/2 ML AMPUL IV PRN (10:00)
[2020-08-02] MEDS ORDERED: FLUMAZENIL 0.5 MG/5 ML VIAL IVP PRN (10:00)
[2020-08-02] MEDS ORDERED: MIDAZOLAM HCL 2 MG/2 ML VIAL IV PRN (10:00)
[2020-08-02] MEDS ORDERED: NALOXONE HCL 0.4 MG/ML AMPUL IV PRN (10:00)
[2020-08-02] MEDS: MUPIROCIN 2% OINT 22 GM TUBE TP SCH (10:26)
[2020-08-02] MEDS: CADEXOMER IODINE 40 GM TUBE TOP SCH (10:26)
[2020-08-02 11:56] VITALS: BP 109/72
[2020-08-02] MEDS ORDERED: IV NORMAL SALINE 250 ML IV ONE (12:30)
[2020-08-02] MEDS ORDERED: IOHEXOL 300MG/ML 100 ML INFUS..BTL ONE (12:30)
[2020-08-02] MEDS ORDERED: SWABABLE VALVE TRANSFER SET EA MC ONE (12:30)
[2020-08-02] MEDS ORDERED: LIDOCAINE HCL 1% 20 ML VIAL ONE (12:30)
[2020-08-02] MEDS: CEFTRIAXONE 1 G in IV DEXTROSE 5% 50 ML IV SCH (12:56)
--- NOTE | 2020-08-02 13:20 | NUR ---
Pt pulled off midline before procedure
--- NOTE | 2020-08-02 13:20 | NUR ---
REPORTED TO ME BY THE ASSIGNED JACK WINDER THAT PATIENT APPARENTLY MANAGED TO PULL OUT HER MID LINE AND SHE HAS A PROCEDURE FOR PERIANAL ABCCESS DRAINGE AT THE RADIOLOGY DEPARTMENT DUE AT 1400 AND HAS NO OTHER INTRAVENOUS ACCESS PATIENT IS A HARD STICK AND THE MIDLINE RN NOT AVAILABLE UNTIL 1900 TODAY SO I CALL DR CRAVEN TO FIND OUT IF THEY WILL BE ABLE TO INSERT A CENTRAL LINE WHEN PATIENT COMES DOWN FOR THE PROCEDURE AND HE STATED THAT THE ARE NOT ABLE TO THAT WE SHOULD MAKE EVERY EFFORT TO INSERT A PERIPHERAL LINE AND STATED THAT DR GALEAS IS THE DOCTOR PERFORMING THE PROCEDURE STATED HE WILL CALL DR GALEAS TO NOTIFY HIM OF THIS ISSUE WITH THE IV AND ALSO STATED THAT THE PROCEDURE CAN BE DELAYED UNTIL 1600 TODAY.
--- NOTE | 2020-08-02 14:00 | NUR ---
ATTEMPTS TO INSERT PERIPHERAL LINE FAILED SO I CONTRACTED AN ED NURSE WHO INSERTED A GAUGE 20 TO HER LEFT AC AND SECURED WITH A TAPE
--- NOTE | 2020-08-02 14:10 | NUR ---
CALLED BACK DR CHOWDHURY AND NOTIFIED HIM THAT PATIENT NOW HAS A PERIPHERAL LINE LEFT AC AND HE STATED WILL NOTIFY DR GALEAS AND HE SHOULD BE ON HIS WAY SHORTLY.
--- NOTE | 2020-08-02 14:30 | NUR ---
Pt left for procedure with a new iv on left ac.
--- NOTE | 2020-08-02 17:20 | NUR ---
pt returned from procedure with a new cath that is draining will endorse to oncoming nurse about any orders
--- NOTE | 2020-08-02 19:40 | NUR ---
EOSS pt is in bed comfortable. Post op of new catheter for perirenal abscess. Pt is on 5L O2. feeding is running, Bell, Rectal tube, and wound vac are all intact. All meds given as ordered and pts needs were met through out shift. Will endorse to oncoming nurse. pt in bed call light in reach and safety measures in place.
--- NOTE | 2020-08-02 19:45 | NUR ---
RECEIVED PATIENT IN BED. NO S/S OF ACUTE DISTRESS OR PAIN AT THIS TIME. V/S STABLE .ON ROOM AIR AND TOLERATING WELL. NSR ON TELE MONITORING. NG TUBE INTACT WITH GLUCERNA 1.2 AT 80CC TOLERATING WELL. F/C/ RECTAL CATHETER DRAINING WELL. LFA IS INTACT WITH IV D5 NS RUNNING AT 50CC.TRACH IS INTACT AND SUCTIONED AT BEDSIDE.WOUND VAC AND GRUPO RENAL CATHETER DRAINING WELL. SAFETY MEASURES IN PLACE.WILL CONTINUE WITH POC.
[2020-08-02 20:01] VITALS: BP 105/69
[2020-08-02 20:14] VITALS: BP 112/75
[2020-08-02] MEDS: GABAPENTIN 300 MG CAPSULE GT SCH (20:14)
--- NOTE | 2020-08-02 22:32 | NUR ---
MARY midline 18gauge was inserted by YUE Benson. IV intact with D5 NS running at 50cc.
[2020-08-02] MEDS: IV D5/ 0.9% NACL 1,000 ML IV PRN ×2 (22:35)
[2020-08-02] MEDS: HYDROCODONE/APAP 5-325MG TABLET PO PRN (22:36)
[2020-08-03] MEDS: BLOOD SUGAR DIAGNOSTIC 1 EACH STRIP VI SCH ×4 (00:07→17:03)
[2020-08-03 00:30] VITALS: BP 93/49
[2020-08-03 00:40] VITALS: BP 101/58
[2020-08-03] MEDS: GLUCERNA 1.2 1000ML LIQUID GT PRN ×3 (04:15→21:16)
[2020-08-03 04:40] VITALS: BP 125/86
[2020-08-03] MEDS: INSULIN REGULAR, HUMAN 300 UNIT/3 ML VIAL SQ PRN ×2 (06:47→11:59)
--- NOTE | 2020-08-03 06:48 | NUR ---
PATIENT SLEPT FAIRLY WELL THROUGH THE NIGHT. REPOSITIONED [id number].ORAL CARE GIVEN. SUCTIONED TRACH TUBE NEEDED. FERNANDO CATHETER AND RECTAL TUBE INTACT. AND DRAINING WELL. WOUND VAC ON RIGHT FOOT INTACT BUT MACHINE BEEPING ON AND OFF. GRUPO RENAL TUBING ON RIGHT FLANK INTACT WITH 50CC OUTPUT. WILL CONTINUE WITH POC. COMFORT PROVIDED. ALL NEEDS ARE MET.
[2020-08-03 06:51] LABS: BASOPHILS % (AUTO) 0.6 % (0.0-2.0); EOSINOPHILS # (AUTO) 0.2 K/uL (0.0-0.7); EOSINOPHILS % (AUTO) 2.1 % (0.0-7.0); HEMATOCRIT 24.3 % (31.2-41.9); HEMOGLOBIN 7.5 g/dL (10.9-14.3); LYMPHOCYTES # (AUTO) 0.8 K/uL (20.0-40.0); LYMPHOCYTES % (AUTO) 11.4 % (20.5-51.5); MEAN CORPUSCULAR HEMOGLOBIN 28.1 uug (24.7-32.8); MEAN CORPUSCULAR HGB CONC 31 g/dL (32.3-35.6); MEAN CORPUSCULAR VOLUME 90.6 fL (75.5-95.3); MONOCYTES # (AUTO) 0.4 K/uL (2.0-10.0); MONOCYTES % (AUTO) 5.3 % (0.0-11.0); NEUTROPHILS % (AUTO) 80.6 % (38.5-71.5); PLATELET COUNT (AUTO) 438 K/uL (179-408); RED BLOOD CELL COUNT(AUTO) 2.68 MIL/uL (3.63-4.92); WHITE BLOOD COUNT (AUTO) 7.4 K/uL (3.8-11.8)
[2020-08-03 07:03] LABS: CREATININE 1.2 mg/dL (0.6-1.3); PHOSPHOROUS 4.9 mg/dL (2.5-4.9); POTASSIUM 3.9 mmol/L (3.5-5.1)
--- NOTE | 2020-08-03 08:00 | NUR ---
AWAKE ALERT WITH SOME PERIODS OF ANXIETY BY TRYING TO REMOVE LINES/TUBINGS. MITTENS APPLIED ON AND OFF FOR SAFETY
[2020-08-03] MEDS: FLUCONAZOLE 100 MG TABLET GT SCH (08:27)
[2020-08-03] MEDS: QUETIAPINE FUMARATE 25 MG TABLET GT SCH ×2 (08:27→17:03)
[2020-08-03] MEDS: METOPROLOL TARTRATE 50 MG TABLET GT SCH ×2 (08:28→21:01)
[2020-08-03] MEDS: ZINC SULFATE 220 MG CAPSULE GT SCH (08:28)
[2020-08-03] MEDS: ASCORBIC ACID 500 MG TABLET GT SCH (08:28)
[2020-08-03] MEDS: CHOLECALCIFEROL 1,000 UNIT TABLET GT SCH (08:28)
[2020-08-03] MEDS: MULTIVIT, IRON, MIN NO. 8, FA TABLET GT SCH (08:28)
[2020-08-03] MEDS: ARGININE/GLUTAMINE/CALCIUM BMB 1 EACH POWD.PACK GT SCH (08:29)
[2020-08-03] MEDS: CADEXOMER IODINE 40 GM TUBE TOP SCH ×2 (08:29→11:54)
[2020-08-03] MEDS: INSULIN GLARGINE,HUM 300 UNITS/3 ML CARTRIDGE SQ SCH ×2 (10:32→21:03)
--- NOTE | 2020-08-03 11:25 | NUR ---
WOUND CARE FOLLOW UP: PT SEEN FOR RT HEEL WOUND ON REQUEST OF RN. FRIAS VAC IN USE TO RT HEEL. BLOCKAGE ALARM NOTED. DR WINSLOW CALLED AND WOUND MACERATION REPORTED. VAC CANISTER NOTED TO HAVE 40cc SEROSANGUINOUS DRAINAGE (SINCE 07/29). NEW ORDER RECEIVED TO DC VAC AND USE IODOSORB GEL. VAC DISCONTINUED AND DRESSING CHANGED PER DPM ORDER. DISCUSSED WITH NURSING STAFF. WILL SEE PRN. Addendum: 08/03/20 at 1130 by SUNDAR RODRIGUEZ RN Amended: Links added.
[2020-08-03 11:38] VITALS: BP 122/71
[2020-08-03] MEDS: HYDROCODONE/APAP 5-325MG TABLET PO PRN (11:53)
[2020-08-03] MEDS: CEFTRIAXONE 1 G in IV DEXTROSE 5% 50 ML IV SCH (12:02)
--- NOTE | 2020-08-03 14:02 | NUR ---
REQUIRES FREQUENT SUCTIONING VIA TRACH AND VIA MOUTH WITH MODERATE AMOUNT OF WHITE THICK SECRETION. GOOD ORAL CARE DONE. MEDICATED WITH NORCO FOR FOOT PAIN WITH GOOD RELIEF
[2020-08-03 16:00] VITALS: BP 107/58
[2020-08-03 20:10] VITALS: BP 127/77
--- NOTE | 2020-08-03 21:00 | NUR ---
Received patient in bed. No s/s of acute distress noted at this time. Trach with t-piece in place on 5L O2 saturation @ 100%. Right UA midline patent and intact. Sinus tachy on tele monitoring. Gtube in place with zero residual. Rectal tube and robbins patent and intact, draining well. Right nephrostomy drain in place and draining. Safety measures, and bed alarm in place. Continue with plan of care.
[2020-08-03] MEDS: GABAPENTIN 300 MG CAPSULE GT SCH (21:01)
[2020-08-04 00:12] VITALS: BP 121/62
[2020-08-04] MEDS: IV D5/ 0.9% NACL 1,000 ML IV PRN ×2 (01:11→21:55)
[2020-08-04 05:03] VITALS: BP 131/82
[2020-08-04] MEDS: INSULIN REGULAR, HUMAN 300 UNIT/3 ML VIAL SQ PRN ×2 (06:20→11:53)
[2020-08-04] MEDS: BLOOD SUGAR DIAGNOSTIC 1 EACH STRIP VI SCH ×4 (06:20→17:10)
--- NOTE | 2020-08-04 07:09 | NUR ---
Pt afebrile last night. Required frequent suctioning. No s/s of acute distress noted at this time. MARY midline patent and intact. Gtube patent and intact. Glucerna feeding paused at 0600 to resume at 1000. Bell and Flexi-seal remains intact. Right nephrostomy drain remain intact and draining. Safety measures and patient needs met and attended to.
[2020-08-04 07:20] LABS: CREATININE 1.2 mg/dL (0.6-1.3); POTASSIUM 4.2 mmol/L (3.5-5.1)
--- NOTE | 2020-08-04 08:00 | NUR ---
AWAKE ALERT AND TRYING TO MAK3E NEEDS KNOWN LIKE "I WANNA EAT OR DRINK" EXPLAINED TO PATIENT THE RISK MOF DRINKING WHILE ON A TRACH. CONTINUE WITH GLUCER-1.2 AT 60 MLS/HR TOLERATING WELL, NO RESIDUAL NOTED. NO SIGNS OF SOB WITH O2 AT 5L VIA TRACH.
[2020-08-04] MEDS: QUETIAPINE FUMARATE 25 MG TABLET GT SCH ×2 (08:15→16:21)
[2020-08-04] MEDS: MULTIVIT, IRON, MIN NO. 8, FA TABLET GT SCH (08:15)
[2020-08-04 08:16] LABS: EOSINOPHILS # (AUTO) 0.2 K/uL (0.0-0.7); LYMPHOCYTES # (AUTO) 0.9 K/uL (20.0-40.0); MONOCYTES # (AUTO) 0.4 K/uL (2.0-10.0); NEUTROPHILS # (AUTO) 4.4 K/uL (1.8-8.9)
[2020-08-04] MEDS: ZINC SULFATE 220 MG CAPSULE GT SCH (08:16)
[2020-08-04] MEDS: ASCORBIC ACID 500 MG TABLET GT SCH (08:16)
[2020-08-04] MEDS: HYDROCODONE/APAP 5-325MG TABLET PO PRN ×2 (08:16→16:22)
[2020-08-04] MEDS: CHOLECALCIFEROL 1,000 UNIT TABLET GT SCH (08:17)
[2020-08-04 08:18] LABS: BASOPHILS # (AUTO) 0.1 K/uL (0.0-8.0); BASOPHILS % (AUTO) 0.9 % (0.0-2.0); EOSINOPHILS % (AUTO) 2.8 % (0.0-7.0); MEAN CORPUSCULAR HEMOGLOBIN 27.9 uug (24.7-32.8); MEAN CORPUSCULAR HGB CONC 31 g/dL (32.3-35.6); MEAN CORPUSCULAR VOLUME 90.5 fL (75.5-95.3); MONOCYTES % (AUTO) 6.2 % (0.0-11.0); NEUTROPHILS % (AUTO) 75.1 % (38.5-71.5); PLATELET COUNT (AUTO) 419 K/uL (179-408); RED BLOOD CELL COUNT(AUTO) 2.65 MIL/uL (3.63-4.92); WHITE BLOOD COUNT (AUTO) 5.8 K/uL (3.8-11.8)
[2020-08-04] MEDS: METOPROLOL TARTRATE 50 MG TABLET GT SCH ×2 (08:18→20:48)
[2020-08-04] MEDS: ARGININE/GLUTAMINE/CALCIUM BMB 1 EACH POWD.PACK GT SCH (08:19)
[2020-08-04] MEDS: CADEXOMER IODINE 40 GM TUBE TOP SCH ×2 (08:19→08:20)
[2020-08-04] MEDS: MUPIROCIN 2% OINT 22 GM TUBE TP SCH (08:20)
[2020-08-04] MEDS: FLUCONAZOLE 100 MG TABLET GT SCH (08:20)
[2020-08-04] MEDS: INSULIN GLARGINE,HUM 300 UNITS/3 ML CARTRIDGE SQ SCH ×2 (08:22→21:10)
[2020-08-04 08:48] LABS: HEMOGLOBIN 7.4 g/dL (10.9-14.3)
--- NOTE | 2020-08-04 09:30 | NUR ---
SEEN BY DR BAUTISTA FOR PULMONARY FOLLOW-UP NO NEW ORDERS. CONTINUE WITH O2 SETTING AT 5L VIA TRACH, PATIENT SATURATING 98%
--- NOTE | 2020-08-04 10:00 | NUR ---
TRACK CARE DONE BY RT. COMPLETE BED BATH GIVEN
[2020-08-04 11:32] VITALS: BP 119/80
[2020-08-04] MEDS: CEFTRIAXONE 1 G in IV DEXTROSE 5% 50 ML IV SCH (11:58)
--- NOTE | 2020-08-04 14:35 | NUR ---
resting comfortably in bed with eyes closed, no ss of pain or distress.
--- NOTE | 2020-08-04 15:51 | NUR ---
SACRAL DEBRIDEMENT DONE AT BEDSIDE. PATIENT TOLERATED WELL. WILL CONTINUE TO OBSERVE.
[2020-08-04 16:00] VITALS: BP 133/78
--- NOTE | 2020-08-04 19:00 | NUR ---
PATIENT ALERT ORIENTED, NO SOB NO CHEST PAIN. PATIENT HAS NO COMPLAIN OF PAIN, TURN AND REPOSITION, KEPT CLEAN AND DRY, GT INTACT R BACK DRAINING TUBE WITH WHITISH COLOR IN MODERATE AMOUNT, FERNANDO CATH PATENT DRAINING WITH YELLOW COLOR URINE. CONT TO MONITOR.
[2020-08-04 20:08] VITALS: BP 127/80
[2020-08-04] MEDS: GABAPENTIN 300 MG CAPSULE GT SCH (20:48)
[2020-08-04] MEDS: MORPHINE SULFATE 2 MG/1 ML DISP.SYRIN IV PRN (21:01)
--- NOTE | 2020-08-04 21:30 | NUR ---
PATIENT CRYING COMPLAIN OF SEVERE PAIN ON BRIA FEET, MEDICATED WITH MORPHINE ORDERED, WITH EFFECTIVE RESULTS. KEPT CLEAN DRY AND COMFORTABLE.
[2020-08-04] MEDS: GLUCERNA 1.2 1000ML LIQUID GT PRN (21:55)
[2020-08-05] MEDS: BLOOD SUGAR DIAGNOSTIC 1 EACH STRIP VI SCH ×4 (01:14→17:41)
[2020-08-05] MEDS: INSULIN REGULAR, HUMAN 300 UNIT/3 ML VIAL SQ PRN ×2 (01:17→05:37)
[2020-08-05 04:04] VITALS: BP 133/85
[2020-08-05] MEDS: MORPHINE SULFATE 2 MG/1 ML DISP.SYRIN IV PRN ×3 (06:59→22:09)
--- NOTE | 2020-08-05 07:30 | NUR ---
Received patient in bed awake alert and oriented times 2-3. Patient has a Trach T-piece on 5L. No sign of distress noted. Patient has a G-tube running Glucerna at 60 cc's x 20 hours; off at 0600 on at 1000, rectal tube, with flexiseal, right kidney drain and Bell. Safety precautions are in place. Will continue to monitor.
[2020-08-05 07:46] LABS: POTASSIUM 3.9 mmol/L (3.5-5.1)
[2020-08-05 08:04] LABS: CREATININE 1.1 mg/dL (0.6-1.3); MAGNESIUM 1.8 mg/dL (1.8-2.4); PHOSPHOROUS 3.8 mg/dL (2.5-4.9)
[2020-08-05 08:22] LABS: BASOPHILS % (AUTO) 0.8 % (0.0-2.0); EOSINOPHILS # (AUTO) 0.2 K/uL (0.0-0.7); EOSINOPHILS % (AUTO) 3.2 % (0.0-7.0); MONOCYTES % (AUTO) 5.8 % (0.0-11.0); NEUTROPHILS # (AUTO) 4.4 K/uL (1.8-8.9)
[2020-08-05 08:24] LABS: HEMATOCRIT 23.9 % (31.2-41.9); LYMPHOCYTES # (AUTO) 0.9 K/uL (20.0-40.0); LYMPHOCYTES % (AUTO) 15.8 % (20.5-51.5); MEAN CORPUSCULAR HEMOGLOBIN 27.9 uug (24.7-32.8); MEAN CORPUSCULAR HGB CONC 31 g/dL (32.3-35.6); MEAN CORPUSCULAR VOLUME 90.5 fL (75.5-95.3); MONOCYTES # (AUTO) 0.3 K/uL (2.0-10.0); NEUTROPHILS % (AUTO) 74.4 % (38.5-71.5); PLATELET COUNT (AUTO) 452 K/uL (179-408); RED BLOOD CELL COUNT(AUTO) 2.64 MIL/uL (3.63-4.92); WHITE BLOOD COUNT (AUTO) 5.9 K/uL (3.8-11.8)
[2020-08-05] MEDS: QUETIAPINE FUMARATE 25 MG TABLET GT SCH ×2 (08:27→17:42)
[2020-08-05] MEDS: ASCORBIC ACID 500 MG TABLET GT SCH (08:27)
[2020-08-05] MEDS: MULTIVIT, IRON, MIN NO. 8, FA TABLET GT SCH (08:27)
[2020-08-05] MEDS: CHOLECALCIFEROL 1,000 UNIT TABLET GT SCH (08:27)
[2020-08-05] MEDS: ZINC SULFATE 220 MG CAPSULE GT SCH (08:27)
[2020-08-05] MEDS: ARGININE/GLUTAMINE/CALCIUM BMB 1 EACH POWD.PACK GT SCH (08:29)
[2020-08-05] MEDS: CADEXOMER IODINE 40 GM TUBE TOP SCH ×2 (08:29)
[2020-08-05] MEDS: METOPROLOL TARTRATE 50 MG TABLET GT SCH ×2 (08:42→20:15)
[2020-08-05] MEDS: INSULIN GLARGINE,HUM 300 UNITS/3 ML CARTRIDGE SQ SCH ×2 (08:43→20:20)
[2020-08-05 09:21] LABS: HEMOGLOBIN 7.4 g/dL (10.9-14.3)
[2020-08-05 12:00] VITALS: BP 143/81
[2020-08-05] MEDS: CEFTRIAXONE 1 G in IV DEXTROSE 5% 50 ML IV SCH (13:27)
[2020-08-05 16:00] VITALS: BP 119/74
[2020-08-05] MEDS: IV D5/ 0.9% NACL 1,000 ML IV PRN (17:46)
--- NOTE | 2020-08-05 19:51 | NUR ---
Patient is resting comfortably in bed. No sign of distress noted. Patient abscess drain flushed and output marked. Gave all medications as ordered. Safety precautions are in place. Will endorse to oncoming nurse.
[2020-08-05 20:12] VITALS: BP 122/65
[2020-08-05] MEDS: GABAPENTIN 300 MG CAPSULE GT SCH (20:13)
[2020-08-05] MEDS: HYDROCODONE/APAP 5-325MG TABLET PO PRN (20:13)
[2020-08-06 00:06] VITALS: BP 131/78
[2020-08-06] MEDS: BLOOD SUGAR DIAGNOSTIC 1 EACH STRIP VI SCH ×3 (00:55→12:46)
[2020-08-06] MEDS: INSULIN REGULAR, HUMAN 300 UNIT/3 ML VIAL SQ PRN (05:57)
--- NOTE | 2020-08-06 06:35 | NUR ---
Ale slept well in between care; c/o pain twice and medicated with norco and morphine; 20 cc output with 10 cc input from the nephrostomy tube; needs attended.
[2020-08-06 06:40] LABS: BASOPHILS # (AUTO) 0.1 K/uL (0.0-8.0); BASOPHILS % (AUTO) 0.8 % (0.0-2.0); EOSINOPHILS # (AUTO) 0.2 K/uL (0.0-0.7); EOSINOPHILS % (AUTO) 2.5 % (0.0-7.0); HEMATOCRIT 22.8 % (31.2-41.9); LYMPHOCYTES # (AUTO) 0.9 K/uL (20.0-40.0); LYMPHOCYTES % (AUTO) 13.9 % (20.5-51.5); MEAN CORPUSCULAR HEMOGLOBIN 28.6 uug (24.7-32.8); MEAN CORPUSCULAR HGB CONC 32 g/dL (32.3-35.6); MONOCYTES # (AUTO) 0.4 K/uL (2.0-10.0); MONOCYTES % (AUTO) 5.9 % (0.0-11.0); NEUTROPHILS # (AUTO) 5.1 K/uL (1.8-8.9); NEUTROPHILS % (AUTO) 76.9 % (38.5-71.5); PLATELET COUNT (AUTO) 430 K/uL (179-408); RED BLOOD CELL COUNT(AUTO) 2.53 MIL/uL (3.63-4.92); WHITE BLOOD COUNT (AUTO) 6.6 K/uL (3.8-11.8)
--- NOTE | 2020-08-06 07:30 | NUR ---
receive report on pt, awake in bed resting. pt on trach T-piece, shiley#8 5L O2 saturating at 95, no signs of distress noted, no pain reported at this time. pt on tele monitor NSR. Pt has sacral decub stage III, groin/abd folds resolving redness, right foot full thickness loss, right toe amputation, left toe amputation, right third finger necrosis. pt is on bedrest, GT tube, right kidney drain, robbins and rectal tube. IV access on the right UA midline. Bed in low and locked position, call light within reach, safety and fall precautions in place, bed alarm on. Will continue to monitor.
[2020-08-06 07:46] LABS: HEMOGLOBIN 7.2 g/dL (10.9-14.3)
--- NOTE | 2020-08-06 08:00 | NUR ---
Therese from lab reported critical value for pt hgb: 7.2, contacted and aware.
[2020-08-06] MEDS ORDERED: SILVER SULFADIAZINE 1% CREAM 50 GM TP SCH (09:00)
[2020-08-06] MEDS: ARGININE/GLUTAMINE/CALCIUM BMB 1 EACH POWD.PACK GT SCH (09:27)
[2020-08-06] MEDS: CHOLECALCIFEROL 1,000 UNIT TABLET GT SCH (09:28)
[2020-08-06] MEDS: ZINC SULFATE 220 MG CAPSULE GT SCH (09:28)
[2020-08-06] MEDS: MULTIVIT, IRON, MIN NO. 8, FA TABLET GT SCH (09:28)
[2020-08-06] MEDS: ASCORBIC ACID 500 MG TABLET GT SCH (09:28)
[2020-08-06] MEDS: METOPROLOL TARTRATE 50 MG TABLET GT SCH (09:28)
[2020-08-06] MEDS: QUETIAPINE FUMARATE 25 MG TABLET GT SCH (09:28)
[2020-08-06] MEDS: INSULIN GLARGINE,HUM 300 UNITS/3 ML CARTRIDGE SQ SCH (09:31)
[2020-08-06] MEDS: MUPIROCIN 2% OINT 22 GM TUBE TP SCH (09:32)
[2020-08-06] MEDS: CADEXOMER IODINE 40 GM TUBE TOP SCH ×2 (09:34)
[2020-08-06] MEDS: GLUCERNA 1.2 1000ML LIQUID GT PRN (10:59)
[2020-08-06] MEDS ORDERED: NUTR1PAC14 GT (11:22)
[2020-08-06] MEDS ORDERED: CEFT1PIG2 IV (11:22)
[2020-08-06] MEDS ORDERED: Silver Sulfadiazine 1% Cream TP (11:22)
[2020-08-06] MEDS ORDERED: APIX2.5T GT (11:22)
[2020-08-06] MEDS ORDERED: CADE40GE2 TOP (11:22)
[2020-08-06] MEDS ORDERED: Gabapentin GT (11:22)
[2020-08-06] MEDS ORDERED: Glucerna 1.2 GT (11:22)
[2020-08-06 11:50] VITALS: BP 149/95
[2020-08-06] MEDS: CEFTRIAXONE 1 G in IV DEXTROSE 5% 50 ML IV SCH (13:08)
--- NOTE | 2020-08-06 15:10 | NUR ---
[facility]
[2020-08-06] MEDS: EPOETIN ALFA-EPBX 10,000 UNIT/ML VIAL SQ SCH (15:25)
--- NOTE | 2020-08-06 16:27 | NUR ---
pt discharged to [facility]. Pt leaving via ambulance with all belongings and paperwork. Pt vitals BP 149/95, temp 98.2, RR 19, HR 88, trach tpiece shiley #8 5L O2 saturating at 100%, no signs of distress noted, no pain reported. Tele monitor removed, rectal tube removed prior to discharge. Pt has Gtube, robbins, and IV access is on the right upper arm midline. Awake alert and oriented x3, cooperative. All medications given as ordered.
== END 2020-08-06 16:30 | DRG 710 ==
LOC: ER 22:45 → TELE 07-14 03:23 → TELE3 07-15 20:00 → CCU 07-27 11:54 → MEDSURG3 07-28 20:20 → TELE3 07-28 20:25
PROVIDERS: ADMIT Nurse Practitioner Acute Care; ATTEND Nurse Practitioner Acute Care
PROC: 05H633Z Insertion of Infusion Device into Left Subclavian Vein, Percutaneous Approach (ICD-10-PCS; 2020-07-14)
PROC: B547ZZA Ultrasonography of Left Subclavian Vein, Guidance (ICD-10-PCS; 2020-07-14)
PROC: 05H533Z Insertion of Infusion Device into Right Subclavian Vein, Percutaneous Approach (ICD-10-PCS; 2020-07-19)
PROC: B546ZZA Ultrasonography of Right Subclavian Vein, Guidance (ICD-10-PCS; 2020-07-19)
PROC: 0W9H40Z Drainage of Retroperitoneum with Drainage Device, Percutaneous Endoscopic Approach (ICD-10-PCS; principal; 2020-07-23)
PROC: 30233N1 Transfusion of Nonautologous Red Blood Cells into Peripheral Vein, Percutaneous Approach (ICD-10-PCS; 2020-07-24)
PROC: 0QBR0ZZ Excision of Left Toe Phalanx, Open Approach (ICD-10-PCS; 2020-07-27)
PROC: 0JBQ0ZZ Excision of Right Foot Subcutaneous Tissue and Fascia, Open Approach (ICD-10-PCS; 2020-07-27)
PROC: 0JBR0ZZ Excision of Left Foot Subcutaneous Tissue and Fascia, Open Approach (ICD-10-PCS; 2020-07-27)
PROC: 0Y6S0Z0 Detachment at Left 2nd Toe, Complete, Open Approach (ICD-10-PCS; 2020-07-27)
PROC: 2W1SX6Z Compression of Right Foot using Pressure Dressing (ICD-10-PCS; 2020-07-27)
PROC: 0Y6T0Z0 Detachment at Right 3rd Toe, Complete, Open Approach (ICD-10-PCS; 2020-07-27)
PROC: 0Y6V0Z0 Detachment at Right 4th Toe, Complete, Open Approach (ICD-10-PCS; 2020-07-27)
PROC: 0Y6U0Z0 Detachment at Left 3rd Toe, Complete, Open Approach (ICD-10-PCS; 2020-07-27)
PROC: 0Y6R0Z0 Detachment at Right 2nd Toe, Complete, Open Approach (ICD-10-PCS; 2020-07-27)
PROC: 5A1935Z Respiratory Ventilation, Less than 24 Consecutive Hours (ICD-10-PCS; 2020-07-27)
PROC: 0JB70ZZ Excision of Back Subcutaneous Tissue and Fascia, Open Approach (ICD-10-PCS; 2020-07-28)
PROC: B546ZZA Ultrasonography of Right Subclavian Vein, Guidance (ICD-10-PCS; 2020-08-02)
PROC: 05H533Z Insertion of Infusion Device into Right Subclavian Vein, Percutaneous Approach (ICD-10-PCS; 2020-08-02)
PROC: 0W9H40Z Drainage of Retroperitoneum with Drainage Device, Percutaneous Endoscopic Approach (ICD-10-PCS; 2020-08-02)
PROC: 0JB70ZZ Excision of Back Subcutaneous Tissue and Fascia, Open Approach (ICD-10-PCS; 2020-08-04)
DX: A41.9 Sepsis, unspecified organism (principal); N12 Tubulo-interstitial nephritis, not specified as acute or chronic; E87.0 Hyperosmolality and hypernatremia; E87.3 Alkalosis; Z93.0 Tracheostomy status; E11.52 Type 2 diabetes mellitus with diabetic peripheral angiopathy with gangrene; G93.41 Metabolic encephalopathy; E43 Unspecified severe protein-calorie malnutrition; R65.20 Severe sepsis without septic shock; N17.0 Acute kidney failure with tubular necrosis; L89.153 Pressure ulcer of sacral region, stage 3; K68.19 Other retroperitoneal abscess; N15.1 Renal and perinephric abscess; E87.6 Hypokalemia; G92 Toxic encephalopathy; Z99.11 Dependence on respirator [ventilator] status; Z87.891 Personal history of nicotine dependence; Z87.440 Personal history of urinary (tract) infections; Z86.718 Personal history of other venous thrombosis and embolism; Z79.4 Long term (current) use of insulin; Z20.822 Contact with and (suspected) exposure to COVID-19; R13.10 Dysphagia, unspecified; E88.09 Other disorders of plasma-protein metabolism, not elsewhere classified; Z74.01 Bed confinement status; N18.9 Chronic kidney disease, unspecified; I47.1 Supraventricular tachycardia; I13.0 Hypertensive heart and chronic kidney disease with heart failure and stage 1 through stage 4 chronic kidney disease, or unspecified chronic kidney disease; E11.22 Type 2 diabetes mellitus with diabetic chronic kidney disease; B95.1 Streptococcus, group B, as the cause of diseases classified elsewhere; K21.9 Gastro-esophageal reflux disease without esophagitis; L98.8 Other specified disorders of the skin and subcutaneous tissue; E83.52 Hypercalcemia; I96 Gangrene, not elsewhere classified; N13.9 Obstructive and reflux uropathy, unspecified; E11.621 Type 2 diabetes mellitus with foot ulcer; L97.518 Non-pressure chronic ulcer of other part of right foot with other specified severity; L97.528 Non-pressure chronic ulcer of other part of left foot with other specified severity; E11.69 Type 2 diabetes mellitus with other specified complication; M86.8X7 Other osteomyelitis, ankle and foot; B37.49 Other urogenital candidiasis; B95.2 Enterococcus as the cause of diseases classified elsewhere; E86.9 Volume depletion, unspecified; J44.0 Chronic obstructive pulmonary disease with (acute) lower respiratory infection; J18.9 Pneumonia, unspecified organism; J96.22 Acute and chronic respiratory failure with hypercapnia; J96.21 Acute and chronic respiratory failure with hypoxia; B95.62 Methicillin resistant Staphylococcus aureus infection as the cause of diseases classified elsewhere; Z93.1 Gastrostomy status; L97.919 Non-pressure chronic ulcer of unspecified part of right lower leg with unspecified severity; L97.929 Non-pressure chronic ulcer of unspecified part of left lower leg with unspecified severity
CPT/HCPCS: 36415; 36600; 70030-TC; 71045; 71250; 71260; 73630; 74018; 74150; 76770; 82652; 82784; 83550; 83605; 83615; 83735; 83970; 84100; 84155; 84156; 84165; 84300; 84443; 85025; 85610; 85651; 85730; 86140; 86334; 86850; 86870; 86900; 86901; 86920; 87040; 87070; 87075; 87077; 87086; 87400; 88312-TC; 93005; 94002; A4217; A4649; A4663; A9150; C1758; G0378; J0456; J0692; J0696; J0885; J1815; J2250; J2270; J2370; J2405; J2916; J3010; J3370; J3471; J3480; J3490; J7030; J7040; J7042; J7050; J7060; J7070; P9016-BL; P9021; Q0162; Q9967; U0003

== ENCOUNTER 2021-01-14 15:58 | Inpatient (IN) | payer OTHER ==
[~2021-01-14] VITALS: Ht 162.6 cm; Wt 71.8 kg
[~2021-01-14 15:58] MED LIST changes: -ACET-2154 GT; +ARGI1POW13 GT; -ASCO500C6 GT; +ASCO500C6 PO; +CADE40GE2 TOP; +CEFT1PIG2 IV; -CEFT1VIA15 IV; -CHOL10002 GT; +CHOL10002 PO; -CLON0.1T GT; +CLON0.1T PO; +DOCU-141 PO; -DOCU100C36 PO; -FERR325T23 GT; +FERR325T23 PO; -GABA-532 GT; +GABA-532 PO; +Gabapentin GT; +Glucerna 1.2 GT; -LORA-259 PO; -MULT-213 GT; +MULT-213 PO; +NUTR1PAC14 GT; -OMEP20CA15 GT; -ONDA-104 GT; +ONDA-104 PO; -POLY17PO4 GT; +POLY17PO4 PO; -PROHEAL GT; -SIME80TA15 PO; +Silver Sulfadiazine 1% Cream TP; +ZINC220T4 GT
[2021-01-14 17:01] LABS: HEMATOCRIT 33.5 % (31.2-41.9); MEAN CORPUSCULAR HEMOGLOBIN 31.2 uug (24.7-32.8); MEAN CORPUSCULAR VOLUME 92.5 fL (75.5-95.3); PLATELET COUNT (AUTO) 210 K/uL (179-408)
[2021-01-14] MEDS ORDERED: INSU100V7 SQ (17:11)
[2021-01-14] MEDS ORDERED: OXYC15TA82 PO (17:11)
[2021-01-14] MEDS ORDERED: MIRT-121 PO (17:11)
[2021-01-14] MEDS ORDERED: HYDR-894 PO (17:11)
[2021-01-14] MEDS ORDERED: INSU100C SQ (17:11)
[2021-01-14] MEDS ORDERED: AMIN30LI2 PO (17:11)
[2021-01-14] MEDS ORDERED: ONDANSETRON 4 MG/2 ML VIAL IV ONE (17:15)
[2021-01-14] MEDS ORDERED: MORPHINE SULFATE 4 MG/1 ML DISP.SYRIN IV ONE (17:15)
[2021-01-14 17:19] LABS: ALANINE AMINOTRANSFERASE 27 U/L (14-59); ALKALINE PHOSPHATASE 181 U/L (50-136); ASPARTATE AMINOTRANSFERASE 12 U/L (15-37); BILIRUBIN,DIRECT < 0.1 mg/dL (0.0-0.2); BILIRUBIN,TOTAL 0.1 mg/dL (0.2-1.0); CARBON DIOXIDE 29 mmol/L (21-32); CHLORIDE 108 mmol/L (98-107); CREATININE 1.5 mg/dL (0.6-1.3); GLUCOSE 121 mg/dL (74-106); POTASSIUM 3.9 mmol/L (3.5-5.1); TOTAL PROTEIN, SERUM 7.8 g/dL (6.4-8.2); UREA NITROGEN, BLOOD 32 mg/dL (7-18)
[2021-01-14] MEDS ORDERED: Medication Not On Formulary EA (Oxycodone Hcl (Oxycontin) 15 MG) PO SCH (19:00)
[2021-01-14] MEDS ORDERED: ACETAMINOPHEN 325 MG TABLET PO PRN ×2 (19:00)
[2021-01-14] MEDS ORDERED: INSULIN REGULAR, HUMAN 300 UNIT/3 ML VIAL SQ PRN (19:15)
[2021-01-14] MEDS ORDERED: ONDANSETRON 4 MG/2 ML VIAL ONE (19:34)
[2021-01-14] MEDS ORDERED: MORPHINE SULFATE 4 MG/1 ML DISP.SYRIN ONE (19:34)
--- NOTE | 2021-01-14 21:05 | NUR ---
Report given to MAYURI Luna. Patient will be going to med-surg floor in room 325, under the care of Viktoria Delong.
--- NOTE | 2021-01-14 21:30 | NUR ---
Pt. admitted to med-surg room 325, under care of [employer] Viktoria Delong. Belongs List completed
[2021-01-14 21:40] VITALS: BP 151/85
--- NOTE | 2021-01-14 21:40 | NUR ---
Admitted a 60 y/o female to Med/Surg with an admitting diagnosis of Nephrostomy tube malfunction. Assisted in transferring pt to bed, repositioned comfortably. Head to toe assessment done, no signs of distress noted. With nephrostomy tube on R flank, no drain noted. Belongings checked and placed at bedside. Admission care rendered. Safety measures initiated, call light within reach.
[2021-01-14] MEDS: IV NS 1000 ML 1,000 ML IV PRN (21:51)
[2021-01-14] MEDS ORDERED: CEFTRIAXONE 1 G VIAL ONE (22:00)
[2021-01-14] MEDS: CEFTRIAXONE 1 G in IV DEXTROSE 5% 50 ML IV SCH (22:02)
[2021-01-14] MEDS: METOPROLOL TARTRATE 50 MG TABLET PO SCH (22:10)
[2021-01-14] MEDS: APIXABAN 2.5 MG TABLET GT SCH (22:11)
[2021-01-14] MEDS: HYDROCODONE/APAP 5-325MG TABLET PO PRN (23:51)
[2021-01-14] MEDS: BLOOD SUGAR DIAGNOSTIC 1 EACH STRIP VI SCH (23:54)
[2021-01-15 04:14] LABS: *BILIRUBIN,URIN NEGATIVE (NEGATIVE); *BLOOD, URINE 3+ (NEGATIVE); *CLARITY,URINE CLOUDY (CLEAR); *COLOR,URINE YELLOW (YELLOW); *KETONES,URINE NEGATIVE (NEGATIVE); *UROBILINOGEN,URINE 0.2 E.U./dl (NORMAL); LEUKOCYTE ESTERASE ,URINE 3+ (NEGATIVE); NITRITE, URINE NEGATIVE (NEGATIVE); UGLUCOSE NEGATIVE (NEGATIVE)
[2021-01-15 04:24] VITALS: BP 116/65
[2021-01-15 04:30] LABS: BACTERIA,URINE MANY /HPF (NONE SEEN); RBC,URINE 20-50 /HPF (0-3); SQUAMOUS EPITHELIAL CELL,UR MODERATE /HPF (NONE SEEN); WBC,URINE 80-100 /HPF (0-3)
[2021-01-15] MEDS: DEXTROSE 50% 50 ML DISP.SYRIN IV PRN ×2 (06:25→18:15)
[2021-01-15] MEDS: BLOOD SUGAR DIAGNOSTIC 1 EACH STRIP VI SCH ×4 (06:25→23:22)
--- NOTE | 2021-01-15 07:00 | NUR ---
Latest BS is 58. D50% 50 ml administered and tolerated well by the pt. Pt refused blood draws this morning. No drain noted on nephrostomy tube. Pending wound consult, swallow eval and physician consult today. Endorsed to day shift nurse.
--- NOTE | 2021-01-15 07:15 | NUR ---
Patient received in bed with eyes closed, but easily arousable. Dressings are C/D/I. Patient on RA with no SOB or difficulties breathing at this time. No acute distress noted at this time. Right AC IV is patent infusing IVF at 75mL/h as ordered. As endorsed by PM shift, patient's BS was 58 this morning and dextrose was administered as per protocol. I will re-check the BS and continue to monitor patient. Fall and aspiration precautions in place. Personal belongings and call light within easy reach. Will continue to monitor.
--- NOTE | 2021-01-15 07:30 | NUR ---
As per PM shift RN, patient's BS was 58 and appropriate protocol was followed. BS is now 126 and patient in no acute distress at this time. Will continue to monitor.
[2021-01-15] MEDS: DOCUSATE SODIUM 100 MG CAPSULE PO SCH ×2 (08:20→16:34)
[2021-01-15] MEDS: MULTIVITAMINS,THERAPEUTIC TABLET PO SCH (08:20)
[2021-01-15] MEDS: ASCORBIC ACID 500 MG TABLET PO SCH (08:20)
[2021-01-15] MEDS: GABAPENTIN 300 MG CAPSULE PO SCH ×2 (08:21→20:55)
[2021-01-15] MEDS: MIRTAZAPINE 15 MG TABLET PO SCH (08:21)
[2021-01-15] MEDS: CHOLECALCIFEROL 1,000 UNIT TABLET PO SCH (08:21)
[2021-01-15] MEDS: METOPROLOL TARTRATE 50 MG TABLET PO SCH ×2 (08:21→20:56)
[2021-01-15] MEDS: MIRALAX 17 GM POWD.PACK PO SCH (08:21)
[2021-01-15] MEDS: APIXABAN 2.5 MG TABLET GT SCH ×2 (08:23→20:54)
[2021-01-15] MEDS: PROTEIN SUPPLEMENT (PROSTAT) 30 ML LIQUID PO SCH (08:26)
[2021-01-15] MEDS: HYDROCODONE/APAP 5-325MG TABLET PO PRN ×3 (08:33→20:57)
[2021-01-15 09:16] LABS: HEMATOCRIT 33.5 % (31.2-41.9); MEAN CORPUSCULAR VOLUME 94.3 fL (75.5-95.3); PLATELET COUNT (AUTO) 207 K/uL (179-408)
[2021-01-15 09:24] LABS: CREATININE 1.5 mg/dL (0.6-1.3); MAGNESIUM 1.9 mg/dL (1.8-2.4); PHOSPHOROUS 4.4 mg/dL (2.5-4.9); POTASSIUM 3.9 mmol/L (3.5-5.1)
[2021-01-15 11:58] VITALS: BP 147/80
[2021-01-15] MEDS: IV NS 1000 ML 1,000 ML IV PRN (16:33)
[2021-01-15 16:38] VITALS: BP 149/78
--- NOTE | 2021-01-15 17:45 | NUR ---
Patient's BS is 51 at this time. Patient is alert and oriented with no s/s of hypoglycemia. Given orange juice and was set up for dinner. Will continue to monitor and re-check BS.
--- NOTE | 2021-01-15 18:15 | NUR ---
BS re-checked and 49 at this time. Patient alert and oriented with no s/s hypoglycemia at this time. Eating dinner. Will continue to monitor and re-check BS.
--- NOTE | 2021-01-15 18:45 | NUR ---
BS is now 77. Patient given more orange juice and will continue monitor and endorse to the oncoming shift.
[2021-01-15 20:30] VITALS: BP 160/72
[2021-01-15] MEDS: CEFTRIAXONE 1 G in IV DEXTROSE 5% 50 ML IV SCH (23:20)
[2021-01-16 04:30] VITALS: BP 194/100
[2021-01-16] MEDS: HYDROCODONE/APAP 5-325MG TABLET PO PRN ×2 (05:29→12:40)
[2021-01-16] MEDS: hydrALAZINE HCL 25 MG TABLET PO PRN (05:37)
[2021-01-16] MEDS: BLOOD SUGAR DIAGNOSTIC 1 EACH STRIP VI SCH ×3 (06:00→17:06)
--- NOTE | 2021-01-16 06:00 | NUR ---
Shift Notes:RECEIVED REPORTS FROM AM ALEC MAN PT IS ALERT AND ORIENTED X3 PT IS DX WITH NEPHROSTOMY MALFUNCTION NO SIGNS OF RESPIRATORY DISTRESS NOTED. PT HAS ABD , RUTTOCK AND SACRUM DRESSING INTACT PT HS BLOOD SUGAR 173 AND AM BLOOD SUGAR IS 101 NO SIGNS OF DIABETIC REACTION NOTED. PT GETS ROCEPHIN NO SIGNS OF RESPIRATORY DISTRESS NOTED. PT GIVEN AT 0529 2 TABS OF NORCO 5/325 MG PT REASSESSED IN AN HOUR SHE IS SLEEPING WILL ENDORSE TO AM NURSE.
[2021-01-16 06:31] LABS: HEMATOCRIT 34.8 % (31.2-41.9); MEAN CORPUSCULAR HEMOGLOBIN 30.4 uug (24.7-32.8); MEAN CORPUSCULAR VOLUME 92.7 fL (75.5-95.3); PLATELET COUNT (AUTO) 193 K/uL (179-408)
[2021-01-16 06:56] LABS: BILIRUBIN,TOTAL 0.1 mg/dL (0.2-1.0); CREATININE 1.2 mg/dL (0.6-1.3); MAGNESIUM 1.8 mg/dL (1.8-2.4); PHOSPHOROUS 4.3 mg/dL (2.5-4.9); POTASSIUM 3.9 mmol/L (3.5-5.1); TOTAL PROTEIN, SERUM 7.5 g/dL (6.4-8.2)
[2021-01-16] MEDS: DOCUSATE SODIUM 100 MG CAPSULE PO SCH ×2 (08:45→17:00)
[2021-01-16] MEDS: GABAPENTIN 300 MG CAPSULE PO SCH ×2 (08:46→21:01)
[2021-01-16] MEDS: ASCORBIC ACID 500 MG TABLET PO SCH (08:46)
[2021-01-16] MEDS: MULTIVITAMINS,THERAPEUTIC TABLET PO SCH (08:46)
[2021-01-16] MEDS: CHOLECALCIFEROL 1,000 UNIT TABLET PO SCH (08:46)
[2021-01-16] MEDS: METOPROLOL TARTRATE 50 MG TABLET PO SCH ×2 (08:58→21:02)
[2021-01-16] MEDS: MIRTAZAPINE 15 MG TABLET PO SCH (08:58)
[2021-01-16] MEDS: APIXABAN 2.5 MG TABLET GT SCH ×2 (09:04→21:03)
[2021-01-16] MEDS: PROTEIN SUPPLEMENT (PROSTAT) 30 ML LIQUID PO SCH (09:05)
[2021-01-16] MEDS: MIRALAX 17 GM POWD.PACK PO SCH (09:05)
[2021-01-16 11:05] VITALS: BP 162/71
[2021-01-16] MEDS: CLONIDINE HCL 0.1 MG TABLET PO PRN (14:12)
[2021-01-16 15:26] VITALS: BP 164/77
[2021-01-16] MEDS: IV NS 1000 ML 1,000 ML IV PRN (17:10)
--- NOTE | 2021-01-16 17:20 | NUR ---
patient is alert, oriented x3, verbally responsive, no sob, resp even nonlabored, skin warm and dry to touch, patient waiting for replacement of nephrostomy tube, complains lot of pain in her stomach, bowel sounds active, no distended bladder noted, bm today, pain is managed with pain medication as ordered, and with nonpharmacological interventions, continue with plan of care.
--- NOTE | 2021-01-16 19:34 | NUR ---
Received report from am nurse pt lying on bed watching tv pt denies pain pt was changed and cleaned by nurse and assistance. iv infusing. pt has rt fa iv 20g pt denies pain no signs of respiratory distress noted. Pt 1800 blood sugar is 125 no coverage required no signs of respiratory distress noted. will continue to monitor.
[2021-01-16 21:13] VITALS: BP 112/79
[2021-01-16] MEDS: CEFTRIAXONE 1 G in IV DEXTROSE 5% 50 ML IV SCH (21:26)
[2021-01-17] MEDS: BLOOD SUGAR DIAGNOSTIC 1 EACH STRIP VI SCH ×4 (06:50→17:14)
--- NOTE | 2021-01-17 08:00 | NUR ---
received report, all questions, comments, and concerns were addressed. received patient awake in bed, bed in low and locked position.
[2021-01-17] MEDS: DOCUSATE SODIUM 100 MG CAPSULE PO SCH ×2 (09:00→16:06)
[2021-01-17] MEDS: MIRALAX 17 GM POWD.PACK PO SCH (09:00)
[2021-01-17] MEDS: MULTIVITAMINS,THERAPEUTIC TABLET PO SCH (09:24)
[2021-01-17] MEDS: ASCORBIC ACID 500 MG TABLET PO SCH (09:24)
[2021-01-17] MEDS: CHOLECALCIFEROL 1,000 UNIT TABLET PO SCH (09:24)
[2021-01-17] MEDS: GABAPENTIN 300 MG CAPSULE PO SCH ×2 (09:24→22:29)
[2021-01-17] MEDS: APIXABAN 2.5 MG TABLET GT SCH ×2 (09:25→20:12)
[2021-01-17] MEDS: MIRTAZAPINE 15 MG TABLET PO SCH (09:25)
[2021-01-17] MEDS: METOPROLOL TARTRATE 50 MG TABLET PO SCH ×2 (09:31→22:20)
[2021-01-17] MEDS: HYDROCODONE/APAP 5-325MG TABLET PO PRN ×2 (09:47→22:19)
[2021-01-17] MEDS: PROTEIN SUPPLEMENT (PROSTAT) 30 ML LIQUID PO SCH (09:52)
[2021-01-17 11:50] VITALS: BP 175/98
[2021-01-17] MEDS: METOCLOPRAMIDE HCL 10 MG/2 ML VIAL IV SCH ×3 (13:12→22:19)
[2021-01-17] MEDS: IV LACTATED RINGERS SOLUTION 1,000 ML IV PRN (15:00)
[2021-01-17 15:28] VITALS: BP 175/91
[2021-01-17] MEDS: NYSTATIN POWDER 15 GM BOTTLE TOP SCH ×2 (17:15→21:00)
--- NOTE | 2021-01-17 18:51 | NUR ---
patient is alert and oriented x3. respirations are even and unlabored, no signs of respiratory distress noted. Patient complains of severe abdominal pain. patient had large BM today. noted with emesis this shift, consisted of yellow mucus. Patient also unable to tolerate food, fluids, and PO medications. Vomiting up all PO medications. PRN [place] PO given for pain but patient vomited out. CIS COORDINATOR Viktoria Delong notified. Patient placed on NPO status. Orders given for Reglan IV Q8 and for CT of abdomen/pelvis. Dr. Ramos placed orders for IV LR. PIV is patent, tolerating well. Patient educated about use of bed alarm. 12- BS 157. No insulin given per sliding scale due to NPO status. No s/s of hyperglycemia. 1800-BS 199. No insulin given per sliding scale due to NPO status. No s/s of hyperglycemia.
--- NOTE | 2021-01-17 20:14 | NUR ---
RECEIVED REPORT FROM BHARAT STONE
--- NOTE | 2021-01-17 20:20 | NUR ---
RECEIVED REPORT FROM AM NURSE LADARIUS PT WAS VOMITING COULDNT HOLD ANYTHING DOWN. AFTERWARD DR YOUNG PUT PT NPO ENTERED PT ROOM SHE IS CRYING TEXT MD FOR PAIN MEDICATION. WILL CONTINUE TO MONITOR FOR SAFETY
[2021-01-17 20:24] VITALS: BP 160/89
[2021-01-17] MEDS: CEFTRIAXONE 1 G in IV DEXTROSE 5% 50 ML IV SCH (22:29)
[2021-01-18 04:24] VITALS: BP 183/83
[2021-01-18 05:30] VITALS: BP 164/53
--- NOTE | 2021-01-18 05:30 | NUR ---
WHILE TAKING BREAK IN THE STAFF LOUNGE THE STAFF NURSE YUNIOR INFORMED ME MY PATIENT HAD FELL ENDORSED TO MD YUE RICHEY AND XRAY WAS ORDERED. PT DENIES ANY BROKEN BONES WILL CONTINUE TO MONITOR FOR SAFETY AND PT C/O STOMACH ACHE WAS GIVEN REGLAN ORDER IV WILL ENDORSE TO AM NURSE.
[2021-01-18] MEDS: METOCLOPRAMIDE HCL 10 MG/2 ML VIAL IV SCH ×3 (06:00→22:11)
[2021-01-18] MEDS: BLOOD SUGAR DIAGNOSTIC 1 EACH STRIP VI SCH ×5 (07:00→22:19)
[2021-01-18] MEDS: APIXABAN 2.5 MG TABLET GT SCH (09:00)
[2021-01-18] MEDS: DOCUSATE SODIUM 100 MG CAPSULE PO SCH ×2 (09:04→16:29)
[2021-01-18] MEDS: CHOLECALCIFEROL 1,000 UNIT TABLET PO SCH (09:06)
[2021-01-18] MEDS: ASCORBIC ACID 500 MG TABLET PO SCH (09:07)
[2021-01-18] MEDS: MIRALAX 17 GM POWD.PACK PO SCH (09:07)
[2021-01-18] MEDS: MULTIVITAMINS,THERAPEUTIC TABLET PO SCH (09:07)
[2021-01-18] MEDS: METOPROLOL TARTRATE 50 MG TABLET PO SCH ×2 (09:07→22:02)
[2021-01-18] MEDS: GABAPENTIN 300 MG CAPSULE PO SCH ×2 (09:07→22:02)
[2021-01-18] MEDS: MIRTAZAPINE 15 MG TABLET PO SCH (09:07)
[2021-01-18] MEDS: NYSTATIN POWDER 15 GM BOTTLE TOP SCH ×2 (09:09→22:19)
[2021-01-18] MEDS: PROTEIN SUPPLEMENT (PROSTAT) 30 ML LIQUID PO SCH (09:09)
[2021-01-18 10:06] LABS: A/G RATIO 0.6 (0.7-1.7); ALBUMIN 2.6 g/dL (2.9-4.4); ALPHA-1-GLOBULIN 0.2 g/dL (0.0-0.4); BETA GLOBULIN 1.1 g/dL (0.7-1.3); GAMMA GLOBULIN 1.9 g/dL (0.4-1.8); GLOBULIN, TOTAL 4.2 g/dL (2.2-3.9); M-SPIKE Not Observed g/dL (Not Observed)
[2021-01-18] MEDS ORDERED: LORAZEPAM 2 MG/1 ML VIAL IV PRN (11:30)
[2021-01-18] MEDS ORDERED: MORPHINE SULFATE 4 MG/1 ML DISP.SYRIN IV PRN (11:30)
[2021-01-18 12:00] VITALS: BP 186/80
[2021-01-18] MEDS: ONDANSETRON 4 MG/2 ML VIAL IV PRN (12:21)
[2021-01-18] MEDS: NITROFURANTOIN/NITROFURAN MAC 100 MG CAPSULE PO SCH ×2 (12:39→22:01)
[2021-01-18 16:51] VITALS: BP 169/79
[2021-01-18] MEDS: hydrALAZINE HCL 25 MG TABLET PO PRN (17:22)
[2021-01-18] MEDS: IV LACTATED RINGERS SOLUTION 1,000 ML IV PRN (19:00)
[2021-01-18] MEDS ORDERED: DEXTROSE 50% 50 ML DISP.SYRIN IV PRN (20:00)
[2021-01-18] MEDS ORDERED: INSULIN REGULAR, HUMAN 300 UNIT/3 ML VIAL SQ PRN (20:00)
[2021-01-18 21:53] VITALS: BP 181/86
[2021-01-18] MEDS: HYDROCODONE/APAP 5-325MG TABLET PO PRN (22:05)
[2021-01-18] MEDS: CLONIDINE HCL 0.1 MG TABLET PO PRN (22:06)
[2021-01-19 04:40] VITALS: BP 169/86
[2021-01-19] MEDS: IV LACTATED RINGERS SOLUTION 1,000 ML IV PRN (04:43)
[2021-01-19] MEDS: METOCLOPRAMIDE HCL 10 MG/2 ML VIAL IV SCH ×2 (06:15→14:11)
[2021-01-19] MEDS: BLOOD SUGAR DIAGNOSTIC 1 EACH STRIP VI SCH ×2 (06:41→12:04)
--- NOTE | 2021-01-19 07:10 | NUR ---
received patient in bed sleeping in stable condition. nephrostomy tube in place and patent. no signs of any SOB, pain or discomfort at this time. call light within reach. will continue to monitor.
[2021-01-19 07:17] LABS: HEMATOCRIT 34.7 % (31.2-41.9); MEAN CORPUSCULAR HEMOGLOBIN 30.7 uug (24.7-32.8); PLATELET COUNT (AUTO) 226 K/uL (179-408)
[2021-01-19 07:51] LABS: CREATININE 1.4 mg/dL (0.6-1.3)
[2021-01-19 08:14] LABS: POTASSIUM 2.7 mmol/L (3.5-5.1)
--- NOTE | 2021-01-19 08:15 | NUR ---
CRITICAL LABS REPORTED TO DR. LENY TAO. DR. TAO AWARE.
[2021-01-19] MEDS ORDERED: POTASSIUM CHLORIDE 20 MEQ TAB.PRT.SR PO ONE (08:30)
[2021-01-19] MEDS: DOCUSATE SODIUM 100 MG CAPSULE PO SCH ×2 (08:54→09:00)
[2021-01-19] MEDS: CHOLECALCIFEROL 1,000 UNIT TABLET PO SCH (08:55)
[2021-01-19] MEDS: GABAPENTIN 300 MG CAPSULE PO SCH ×2 (08:57→09:00)
[2021-01-19] MEDS: MULTIVITAMINS,THERAPEUTIC TABLET PO SCH (08:57)
[2021-01-19] MEDS: ASCORBIC ACID 500 MG TABLET PO SCH ×2 (08:57→09:00)
[2021-01-19] MEDS: MIRTAZAPINE 15 MG TABLET PO SCH ×2 (08:57→09:00)
[2021-01-19] MEDS: NITROFURANTOIN/NITROFURAN MAC 100 MG CAPSULE PO SCH ×2 (08:57→09:00)
[2021-01-19] MEDS: MIRALAX 17 GM POWD.PACK PO SCH ×2 (08:58→09:00)
[2021-01-19] MEDS: PROTEIN SUPPLEMENT (PROSTAT) 30 ML LIQUID PO SCH (08:58)
[2021-01-19] MEDS: METOPROLOL TARTRATE 50 MG TABLET PO SCH ×2 (09:00→09:19)
[2021-01-19] MEDS: NYSTATIN POWDER 15 GM BOTTLE TOP SCH (09:20)
[2021-01-19] MEDS: POTASSIUM CHLORIDE 50 ML IV SCH ×3 (10:50→14:11)
[2021-01-19] MEDS: ONDANSETRON 4 MG/2 ML VIAL IV PRN (11:23)
[2021-01-19 12:00] VITALS: BP 185/97
[2021-01-19] MEDS ORDERED: MIRALAX 17 GM POWD.PACK PO ONE (12:00)
--- NOTE | 2021-01-19 14:36 | NUR ---
nephrostomy tube removed by Dr. jourdan beck, no complains of any pain or discomfort at this time will continue to monitor.
[2021-01-19] MEDS ORDERED: hydrALAZINE HCL 20 MG/1 ML VIAL IV PRN (15:15)
[2021-01-19 16:00] VITALS: BP 151/72
--- NOTE | 2021-01-19 16:00 | NUR ---
patient left via ambulance to [facility]. report given to facility.
== END 2021-01-19 16:00 | DRG 466 ==
LOC: ER 16:01 → MEDSURG3 21:11
PROVIDERS: ADMIT Nurse Practitioner Acute Care; ATTEND Nurse Practitioner Family
DX: T83.022A Displacement of nephrostomy catheter, initial encounter (principal); N17.0 Acute kidney failure with tubular necrosis; E43 Unspecified severe protein-calorie malnutrition; G93.41 Metabolic encephalopathy; J96.10 Chronic respiratory failure, unspecified whether with hypoxia or hypercapnia; L89.159 Pressure ulcer of sacral region, unspecified stage; Z93.0 Tracheostomy status; D68.59 Other primary thrombophilia; E11.22 Type 2 diabetes mellitus with diabetic chronic kidney disease; E83.52 Hypercalcemia; N39.0 Urinary tract infection, site not specified; B96.20 Unspecified Escherichia coli [E. coli] as the cause of diseases classified elsewhere; Z16.12 Extended spectrum beta lactamase (ESBL) resistance; D63.8 Anemia in other chronic diseases classified elsewhere; E86.0 Dehydration; E78.5 Hyperlipidemia, unspecified; Z89.429 Acquired absence of other toe(s), unspecified side; Z93.1 Gastrostomy status; Z79.01 Long term (current) use of anticoagulants; Z20.822 Contact with and (suspected) exposure to COVID-19; Y83.8 Other surgical procedures as the cause of abnormal reaction of the patient, or of later complication, without mention of misadventure at the time of the procedure; Y73.8 Miscellaneous gastroenterology and urology devices associated with adverse incidents, not elsewhere classified; Y92.129 Unspecified place in nursing home as the place of occurrence of the external cause; N18.9 Chronic kidney disease, unspecified; R13.10 Dysphagia, unspecified; Z68.27 Body mass index [BMI] 27.0-27.9, adult; I12.9 Hypertensive chronic kidney disease with stage 1 through stage 4 chronic kidney disease, or unspecified chronic kidney disease; L98.8 Other specified disorders of the skin and subcutaneous tissue; Z74.01 Bed confinement status; Z79.4 Long term (current) use of insulin; Z87.440 Personal history of urinary (tract) infections; K21.9 Gastro-esophageal reflux disease without esophagitis; J44.9 Chronic obstructive pulmonary disease, unspecified; E11.51 Type 2 diabetes mellitus with diabetic peripheral angiopathy without gangrene; L97.829 Non-pressure chronic ulcer of other part of left lower leg with unspecified severity; L97.819 Non-pressure chronic ulcer of other part of right lower leg with unspecified severity; I70.248 Atherosclerosis of native arteries of left leg with ulceration of other part of lower leg; I70.238 Atherosclerosis of native arteries of right leg with ulceration of other part of lower leg; L98.499 Non-pressure chronic ulcer of skin of other sites with unspecified severity; E86.1 Hypovolemia
CPT/HCPCS: 36415; 71045; 73060; 76770; 82652; 83605; 83735; 83970; 84100; 84155; 84165; 85025; 85730; 87077; 87086; 93005; A4663; G0378; J0360; J0696; J1815; J2060; J2270; J2405; J2765; J3480; J3490; J7030; J7060; J7120